=== PATIENT | male | born 1955 | race Caucasian/White ===

== ENCOUNTER 2018-10-27 15:00 | Emergency (ER) | payer OTHER ==
[2018-10-27 15:59] LABS: Absolute Lymphocytes (CBC) 2.2 K/uL (0.7-4.9); Basophils % 0.1 % (0-1.3); Eosinophils % 1.5 % (0-4.4); Hematocrit 45.7 % (39.6-49.0); Lymphocytes % 19.6 % (15.3-44.8); MPV 10.3 fL (7.6-11.3); Monocytes % 6.2 % (3.3-12.3)
--- NOTE | 2018-10-27 16:29 | RAD REPORT ---
EXAM DESCRIPTION: RAD - Pelvis - 10/27/2018 3:37 pm CLINICAL HISTORY: Pelvic pain status post injury FINDINGS: No fracture or dislocation is seen. A left hip arthroplasty has been performed. Osteoporosis
[2018-10-27 16:37] LABS: Potassium 3.9 mmol/L (3.5-5.1)
--- NOTE | 2018-10-27 17:33 | RAD REPORT ---
EXAM DESCRIPTION: CT - Head C Spine Aristides Rodriguez - 10/27/2018 5:04 pm CLINICAL HISTORY: Head and neck injury with chest and abdominal pain status post fall. Head and neck pain . TECHNIQUE: Computed axial tomography of the head and cervical spine was obtained Computed axial tomography of the chest, abdomen and pelvis was obtained. 100 cc Isovue-300 was given intravenously coronal and sagittal reconstruction was performed. All CT scans are performed using dose optimization technique as appropriate and may include automated exposure control or mA/KV adjustment according to patient size. COMPARISON: CT abdomen 2015. FINDINGS: An intracranial bleed is not seen. The ventricles are normal in caliber. An extra-axial fl uid collection is not noted. Anterior fusion involves C3 through C5. Mild anterior subluxation of C5 on C6. A cervical fracture is not seen. No dislocation is seen. A mediastinal hematoma is not noted. A pleural effusion is not present. A lung contusion is not seen. The liver, spleen, pancreas, adrenals, kidneys and bladder appear unremarkable. Postsurgical changes involve the lumbar spine IMPRESSION: 1. No acute intracranial abnormality is seen 2. A cervical fracture is not visualized. If the patient continues have symptoms to suggest intracran ial/spinal cord pathology then MRI would be recommended. 3. No traumatic injury involving the chest, abdomen or pelvis is seen.
--- NOTE | 2018-10-27 17:36 | RAD REPORT ---
EXAM DESCRIPTION: Collin Single View10/27/2018 3:37 pm CLINICAL HISTORY: Chest pain COMPARISON: 2007 FINDINGS: The lungs appear clear of acute infiltrate. The heart is normal size IMPRESSION: No acute abnormalities displayed
--- NOTE | 2018-10-27 17:45 | ER ---
Nurse's Notes [facility] Name: Live Childs Age: 63 yrs Sex: Male : 1955 Arrival Date: 10/27/2018 Time: 15:05 Bed 15 Private MD: Unknown, Unknown Diagnosis: Contusion of back wall of thorax;Contusion of front wall of thorax;Contusion of abdominal wall;Contusion of lower back and pelvis Presentation: 10/27 15:08 Presenting complaint: Patient states: Was in a tree approximately 50 feet high, when ss patient fell, but caught himself on a few limbs, ultimately falling 25 feet to the ground onto his back. Pt c/o back pain, LUQ pain and mild nausea. Denies LOC. Care prior to arrival: None. Mechanism of Injury: Fall tree, approximately 25-50 feet. Trauma event details: Injury occurred in the [facility], Injury occurred: at a residence Injury occurred: October 27, 2018 Injury occurred at: 14:30. 15:08 Acuity: ALFA 1 ss 15:08 Method Of Arrival: Ambulatory ss 15:08 Transition of care: patient was not received from another setting of care. Onset of ss symptoms was October 27, 2018. Risk Assessment: Do you want to hurt yourself or someone else? Patient reports no desire to harm self or others. Initial Sepsis Screen: Does the patient meet any 2 criteria? No. Patient's initial sepsis screen is negative. Does the patient have a suspected source of infection? No. Patient's initial sepsis screen is negative. Trauma Activation: Alert Physician: ED Physician; Name: ; Notified At: 15:11; Arrived At: 15:11 Physician: General Surgeon; Name: ; Notified At: 15:11; Arrived At: Physician: Radiology; Name: ; Notified At: 15:11; Arrived At: 15:11 Physician: Respiratory; Name: ; Notified At: 15:11; Arrived At: Physician: Lab; Name: ; Notified At: 15:11; Arrived At: Historical: - Allergies: 15:39 No Known Allergies; ss - Home Meds: 15:39 "anti inflammatory" [Active]; ss - PMHx: 15:39 sciatica; ss - PSHx: 15:39 hip replacement; back surgery; ss - Immunization history: Last tetanus immunization: unknown. - Social history:: Smoking status: Patient/guardian denies using tobacco. - Ebola Screening: : Patient denies exposure to infectious person Patient denies travel to an Ebola-affected area in the 21 days before illness onset. - Family history:: not pertinent. - Hospitalizations: : No recent hospitalization is reported. Screenin:08 Abuse screen: Denies threats or abuse. Denies injuries from another. Tuberculosis ss screening: Never had TB. 15:35 Fall Risk Fall in past 12 months (25 points). No secondary diagnosis (0 pts). IV access rb1 (20 points). Ambulatory Aid- None/Bed Rest/Nurse Assist (0 pts). Gait- Normal/Bed Rest/Wheelchair (0 pts) Mental Status- Oriented to own ability (0 pts). Total Cagle Fall Scale indicates High Risk Score (45 or more points). Fall prevention measures have been instituted. Side Rails Up X 2 Placed Close to Nursing Station 1:1 Attendant Assigned Frequent Obs/Assessments Occuring As available patient and family educated on Fall Prevention Program and Strategies. 15:35 Nutritional screening: No deficits noted. rb1 Primary Survey: 15:08 NO uncontrolled hemorrhage observed. A: The patient is alert. Airway: patent, No ss supplemental oxygen in use on arrival. Oral cavity: clear, Trachea midline. Breathing/Chest: Respiratory pattern: regular, Respiratory effort: spontaneous, unlabored, Breath sounds: clear, bilaterally. Chest inspection: symmetrical rise and fall of the chest. Circulation: Pulses: palpable right radial artery, right posterior tibial artery, left radial artery and left posterior tibial artery. Skin color: pink, Skin temperature: warm. Disability Alert. Exposure/Environment: There is no evidence of uncontrolled external bleeding. Obvious injury(ies) are noted at this time: No obvious injury noted. Pt c/o pain to back and LUQ. 15:30 Reassessment Airway Airway Patent Breathing/Chest Respiratory pattern Regular rb1 Respiratory effort Spontaneous Unlabored Breath sounds Clear Chest inspection Symmetrical Circulation Pulses Palpable Disability Alert. Secondary Survey: 15:08 HEENT: No deficits noted. Head No injury/deformity Face No injury/deformity Eyes: No ss injury or deformity noted. Ears: clear Nose: clear Throat: No injury or deformity noted. is clear. Musculoskeletal: Circulation, motion, and sensation intact. Range of motion: intact in all extremities, Swelling absent. 15:08 Gastrointestinal: Patient reports Nausea. : No signs and/or symptoms were reported rb1 regarding the genitourinary system. Assessment: 15:09 General: Appears uncomfortable, Behavior is calm, cooperative. Pain: Complains of pain rb1 in back and Left upper Quadrant Pain currently is 8 out of 10 on a pain scale. Pain began 1430. Neuro: Level of Consciousness is awake, alert, obeys commands, Oriented to person, place, time, situation. Cardiovascular: Capillary refill < 3 seconds is brisk in bilateral fingers. Respiratory: Airway is patent Respiratory effort is even, unlabored, Respiratory pattern is regular, symmetrical. GI: No signs and/or symptoms were reported involving the gastrointestinal system. : No signs and/or symptoms were reported regarding the genitourinary system. Derm: Skin is pink, warm \\T\\ dry. 15:09 Musculoskeletal: Range of motion: intact in all extremities. rb1 16:00 Reassessment: Patient appears in no apparent distress at this time. No changes from rb1 previously documented assessment. Family at bedside. 16:54 Reassessment: Patient appears in no apparent distress at this time. Patient and/or rb1 family updated on plan of care and expected duration. Pain level reassessed. Patient is alert, oriented x 3, equal unlabored respirations, skin warm/dry/pink. Pt. went to CT. 17:30 Reassessment: Patient appears in no apparent distress at this time. Patient and/or rb1 family updated on plan of care and expected duration. Pain level reassessed. Patient is alert, oriented x 3, equal unlabored respirations, skin warm/dry/pink. Pt. is talking on his telephone. 17:40 Reassessment: Dr. Crowe is at the bedside. rb1 Vital Signs: 15:08 BP 129 / 92; Pulse 88; Resp 18; Temp 98.0(O); Pulse Ox 99% on R/A; Weight 81.65 kg; ss Height 6 ft. 0 in. (182.88 cm); Pain 6/10; 16:00 BP 110 / 68; Pulse 75; Resp 17; Temp 98.0(O); Pulse Ox 97% ; Pain 6/10; rb1 16:45 BP 110 / 69; Pulse 81; Resp 18; Temp 98.3(O); Pulse Ox 99% on R/A; Pain 6/10; rb1 17:30 BP 124 / 75; Pulse 77; Resp 19; Temp 98.1(O); Pulse Ox 100% on R/A; Pain 5/10; rb1 18:18 BP 118 / 73; Pulse 71; Resp 18; Temp 98.2(O); Pulse Ox 98% on R/A; Pain 5/10; rb1 15:08 Body Mass Index 24.41 (81.65 kg, 182.88 cm) ss Adrian Coma Score: 15:08 Eye Response: spontaneous(4). Verbal Response: oriented(5). Motor Response: obeys ss commands(6). Total: 15. Trauma Score (Adult): 15:08 Eye Response: spontaneous(1); Verbal Response: oriented(1); Motor Response: obeys ss commands(2); Systolic BP: > 89 mm Hg(4); Respiratory Rate: 10 to 29 per min(4); Putnam Score: 15; Trauma Score: 12 ED Course: 15:05 Patient arrived in ED. ag5 15:05 Unknown, Unknown is Private Physician. ag5 15:08 Patient has correct armband on for positive identification. Placed in gown. Bed in low ss position. Call light in reach. Side rails up X 1. satellite project site monitor on. Pulse ox on. NIBP on. 15:08 Warm blanket given. rb1 15:08 Rigid cervical collar applied and checked by physician. Patient maintains SpO2 ss saturation greater than 95% on room air. 15:08 Thermoregulation: warm blanket given to patient. rb1 15:10 Inserted saline lock: 20 gauge in right antecubital area, using aseptic technique. ss ,using aseptic technique. insertion by Marilin Barrera RN Blood collected. 15:14 Michoacano Crowe MD is Attending Physician. rn 15:32 Triage completed. ss 15:38 XRAY Chest (1 view) In Process Unspecified. EDMS 15:38 XRAY Pelvis In Process Unspecified. EDMS 15:39 Arm band placed on right wrist. ss 15:43 Marilin Barrera, RN is Primary Nurse. rb1 17:04 CT completed. Patient tolerated procedure well. Patient moved back from CT. mw3 17:05 CT Traumagram (Head C Spine CAP W Con) In Process Unspecified. EDMS 18:18 No provider procedures requiring assistance completed. IV discontinued, intact, rb1 bleeding controlled, No redness/swelling at site. Pressure dressing applied. Administered Medications: No medications were administered Point of Care Testing: Blood Glucose: 15:39 Blood Glucose: 114 mg/dL; rb1 Ranges: Intake: 18:18 IV: 30ml; Total: 30ml. rb1 18:18 NS flush x 3 rb1 Outcome: 17:44 Discharge ordered by . rn 18:18 Discharged to home via wheelchair, with family. rb1 18:18 Condition: stable 18:18 Patient's length of stay in the Emergency Department was greater than 2 hours. waiting for test results.Patient's length of stay extended due to 18:18 Instructed on discharge instructions, follow up and referral plans. Demonstrated rb1 understanding of instructions, follow-up care, Prescriptions given X none 18:23 Patient left the ED. ss Signatures: Dispatcher [employer] EDMS Michoacano Crowe MD MD rn Smirch, Shelby, RN RN Marilin Barrera RN RN Aracely Drake mw3 Kasasndra Gonzalez ag5 Corrections: (The following items were deleted from the chart) 15:42 15:08 Presenting complaint: Patient states: Was in a tree approximately 50 feet high, ss when patient fell, but caught himself on a few limbs, ultimately falling 25 feet to the ground onto his back. Pt c/o back pain, LUQ pain and mild nausea. Denies LOC. ss
--- NOTE | 2018-10-27 17:45 | EDPHYS ---
Physician Documentation [facility] Name: Live Childs Age: 63 yrs Sex: Male : 1955 Arrival Date: 10/27/2018 Time: 15:05 Bed 15 Private MD: Unknown, Unknown ED Physician Michoacano Crowe HPI: 10/27 15:44 This 63 yrs old Male presents to ER via Ambulatory with complaints of Fall rn Injury, Back Injury, Abdominal Injury. 15:44 Details of fall: The patient fell from a height, out of a tree. Associated injuries: rn The patient sustained neck injury, upper back injury, injury to the low back, injury to the chest, injury to the abdomen. Severity of symptoms: At their worst the symptoms were mild, in the emergency department the symptoms are unchanged. The patient has not experienced similar symptoms in the past. Reports fall from tree, was somewhere from 25-50 ft high, lost his balance, caught himself on some limbs and didn't fall full height, but thinks fell maybe maximum 25 ft. Reports pain to neck/back/chest/abdomen. no extremity injuries. Drove himself here. No LOC. NOt on blood thinners. . Historical: - Allergies: 15:39 No Known Allergies; ss - Home Meds: 15:39 "anti inflammatory" [Active]; ss - PMHx: 15:39 sciatica; ss - PSHx: 15:39 hip replacement; back surgery; ss - Immunization history: Last tetanus immunization: unknown. - Social history:: Smoking status: Patient/guardian denies using tobacco. - Ebola Screening: : Patient denies exposure to infectious person Patient denies travel to an Ebola-affected area in the 21 days before illness onset. - Family history:: not pertinent. - Hospitalizations: : No recent hospitalization is reported. ROS: 15:44 Constitutional: Negative for fever, chills, and weight loss, Eyes: Negative for injury, rn pain, redness, and discharge, Neck: + neck pain and injury Cardiovascular: + rib pain left > right Respiratory: Negative for shortness of breath, cough, wheezing Abdomen/GI: + abd pain and injury Back: + left flank and back pain MS/Extremity: Negative for injury and deformity, Skin: + abrasions and contusions. Neuro: Negative for headache, weakness, numbness, tingling, and seizure. Exam: 15:44 Constitutional: This is a well developed, well nourished patient who is awake, alert, rn appears in pain Head/Face: Normocephalic, atraumatic. Eyes: + irregular right pupil (states old bull injury) ENT: no oral trauma Neck: + cervical perispinal tenderness Chest/axilla: + abrasions and contusions bilateral anterior/lateral ribs, no crepitus or mobile segments. Cardiovascular: Regular rate and rhythm with a normal S1 and S2. No gallops, murmurs, or rubs. Normal PMI, no JVD. No pulse deficits. Respiratory: + equal bilateral breath sounds Abdomen/GI: soft, + left sided tenderness with abrasions, no peritoneal signs Back: No spinal tenderness, left CVAT with abrasion, no crepitus. NO stepoffs MS/ Extremity: Pulses equal, no cyanosis. Neurovascular intact. Full, normal range of motion. Equal circumference. Neuro: Awake and alert, GCS 15, oriented to person, place, time, and situation. Motor strength 5/5 in all extremities. Sensory grossly intact. Vital Signs: 15:08 BP 129 / 92; Pulse 88; Resp 18; Temp 98.0(O); Pulse Ox 99% on R/A; Weight 81.65 kg; ss Height 6 ft. 0 in. (182.88 cm); Pain 6/10; 16:00 BP 110 / 68; Pulse 75; Resp 17; Temp 98.0(O); Pulse Ox 97% ; Pain 6/10; rb1 16:45 BP 110 / 69; Pulse 81; Resp 18; Temp 98.3(O); Pulse Ox 99% on R/A; Pain 6/10; rb1 17:30 BP 124 / 75; Pulse 77; Resp 19; Temp 98.1(O); Pulse Ox 100% on R/A; Pain 5/10; rb1 18:18 BP 118 / 73; Pulse 71; Resp 18; Temp 98.2(O); Pulse Ox 98% on R/A; Pain 5/10; rb1 15:08 Body Mass Index 24.41 (81.65 kg, 182.88 cm) Marion Coma Score: 15:08 Eye Response: spontaneous(4). Verbal Response: oriented(5). Motor Response: obeys ss commands(6). Total: 15. Trauma Score (Adult): 15:08 Eye Response: spontaneous(1); Verbal Response: oriented(1); Motor Response: obeys ss commands(2); Systolic BP: > 89 mm Hg(4); Respiratory Rate: 10 to 29 per min(4); Adrian Score: 15; Trauma Score: 12 Procedures: 15:35 Ultrasound: Type: Fast exam, performed by the emergency department physician, FAST rn negative in all windows.. MDM: 15:14 Patient medically screened. rn 15:36 ED course: Pt declines pain medication.. rn 17:41 Differential diagnosis: abrasion, closed head injury, contusion, fracture, multiple electrical intern, sprain, strain. Data reviewed: vital signs, nurses notes, lab test result(s), radiologic studies, CT scan, plain films, and as a result, I will discharge patient. Counseling: I had a detailed discussion with the patient and/or guardian regarding: the historical points, exam findings, and any diagnostic results supporting the discharge/admit diagnosis, lab results, radiology results, the need for outpatient follow up, to return to the emergency department if symptoms worsen or persist or if there are any questions or concerns that arise at home. Response to treatment: the patient's symptoms have mildly improved after treatment, and as a result, I will discharge patient. Special discussion: I discussed with the patient/guardian in detail that at this point there is no indication for admission to the hospital. It is understood, however, that if the symptoms persist or worsen the patient needs to return immediately for re-evaluation. ED course: CT shows no acute finding, FAST negative, normal vitals, xrays negative. Ccollar removed and able to range neck without neurological symptoms. Patient declines pain medication prescription.. 10/27 15:22 Order name: Basic Metabolic Panel; Complete Time: 16:38 rn 10/27 15:22 Order name: CBC with Diff; Complete Time: 16:38 rn 10/27 15:22 Order name: XRAY Chest (1 view); Complete Time: 17:36 rn 10/27 15:22 Order name: Creatinine for Radiology; Complete Time: 16:47 rn 10/27 15:22 Order name: Type And Screen; Complete Time: 16:47 rn 10/27 17:06 Order name: ABO/RH no charge; Complete Time: 17:17 EDMS 10/27 15:22 Order name: CT Traumagram (Head C Spine CAP W Con); Complete Time: 17:36 rn 10/27 15:22 Order name: Labs collected and sent; Complete Time: 15:59 rn 10/27 15:22 Order name: XRAY Pelvis; Complete Time: 16:38 rn 10/27 16:01 Order name: Misc. Order: recollect BMP please; Complete Time: 16:13 ss Administered Medications: No medications were administered Point of Care Testing: Blood Glucose: 15:39 Blood Glucose: 114 mg/dL; rb1 Ranges: Critical Glucose Levels:Adult <50 mg/dl or >400 mg/dl <40 mg/dl or >180 mg/dl Disposition: 10/27/18 17:44 Discharged to Home. Impression: Contusion of back wall of thorax, Contusion of front wall of thorax, Contusion of abdominal wall, Contusion of lower back and pelvis. - Condition is Stable. - Discharge Instructions: Contusion. - Medication Reconciliation Form, Thank You Letter, Antibiotic Education, Prescription Opioid Use form. - Follow up: Private Physician; When: As needed; Reason: Recheck today's complaints, Re-evaluation by your physician. - Problem is new. - Symptoms have improved. Signatures: Dispatcher [employer] EDMichoacano Vyas MD MD rn Smirch, Shelby, RN RN ss Corrections: (The following items were deleted from the chart) 18:23 17:44 10/27/2018 17:44 Discharged to Home. Impression: Contusion of back wall of ss thorax; Contusion of front wall of thorax; Contusion of abdominal wall; Contusion of lower back and pelvis. Condition is Stable. Forms are Medication Reconciliation Form, Thank You Letter, Antibiotic Education, Prescription Opioid Use. Follow up: Private Physician; When: As needed; Reason: Recheck today's complaints, Re-evaluation by your physician. Problem is new. Symptoms have improved. rn
== END 2018-10-27 18:23 | disposition home or self-care (01) ==
LOC: ER 15:00
DX: S30.0XXA Contusion of lower back and pelvis, initial encounter (principal); S20.229A Contusion of unspecified back wall of thorax, initial encounter; S20.219A Contusion of unspecified front wall of thorax, initial encounter; S30.1XXA Contusion of abdominal wall, initial encounter; W14.XXXA Fall from tree, initial encounter; Y93.9 Activity, unspecified; Y92.9 Unspecified place or not applicable
CPT/HCPCS: 85025; 80048; 36415; 86900; 86850; 86901; 82962; 70450; 72125; 71260; 74177; 71045; 72170; 99291; 99292; Q9967

== ENCOUNTER 2019-03-11 11:03 | Emergency (ER) | payer OTHER ==
--- OUTSIDE RECORDS SUMMARY | 2019-03-11 11:14 | XMS REPORT ---
:1955 [facility] Address [address] [place] [address] [address] [place] [address] Care Team Providers Name Role Phone Unavailable Unavailable Unavailable Problems This patient has no known problems. Allergies, Adverse Reactions, Alerts This patient has no known allergies or adverse reactions. Medications This patient has no known medications.
[2019-03-11] MEDS ORDERED: METOCLOPRAMIDE 10 MG/2mL INJ ONE (11:45)
[2019-03-11] MEDS ORDERED: KETOROLAC 30 MG/ML INJ ONE (11:45)
[2019-03-11] MEDS ORDERED: DIPHENHYDRAMINE 50 MG/ML VIAL ONE (11:45)
[2019-03-11] MEDS ORDERED: NA CHLORIDE 0.9% 2,000 ML ONE (11:46)
[2019-03-11] MEDS ORDERED: NA CHLORIDE 0.9% 1,000 ML ONE (11:47)
[2019-03-11 11:56] LABS: Absolute Lymphocytes (CBC) 1.5 K/uL (0.7-4.9); Basophils % 0.4 % (0-1.3); Hematocrit 42.8 % (39.6-49.0); Lymphocytes % 28.7 % (15.3-44.8); MPV 9.4 fL (7.6-11.3); RBC Red Blood Cell Count 4.61 M/uL (4.33-5.43)
--- NOTE | 2019-03-11 12:07 | RAD REPORT ---
EXAM DESCRIPTION: CT - Head Brain Wo Cont - 03/11/2019 11:57 am CLINICAL HISTORY: Trouble talking, multiple falls, headache, dizziness COMPARISON: CT study October 2007 TECHNIQUE: Axial 5 mm thick images of the head were obtained without IV contrast. All CT scans are performed using dose optimization technique as appropriate and may include automated exposure control or mA/KV adjustment according to patient size. FINDINGS: No intracranial hemorrhage, mass, edema or shift of mid-line structures. No acute infarcti on changes seen. No abnormal extra-axial fluid collections. Ventricles are normal. No significant at rophy or chronic ischemic change. Physiologic calcifications are present. Mastoid air cells and visualized portions of the paranasal sinuses are clear. No acute bony findings. No significant change from prior study. IMPRESSION: Negative non-contrast CT head examination.
[2019-03-11 12:15] LABS: ALT/SGPT 25 U/L (12-78); AST/SGOT 20 U/L (15-37); Albumin 3.5 g/dL (3.4-5.0); Alkaline Phosphatase 95 U/L (45-117); BUN Blood Urea Nitrogen 16 mg/dL (7-18); Bicarbonate 30 mmol/L (21-32); Bilirubin Direct < 0.1 mg/dL (0-0.2); Bilirubin Total 0.3 mg/dL (0.2-1.0); Glucose Level 112 mg/dL (74-106); Lipase 74 U/L (73-393); Potassium 4.2 mmol/L (3.5-5.1); Protein, Total 6.9 g/dL (6.4-8.2); Sodium Level 141 mmol/L (136-145)
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
--- NOTE | 2019-03-11 13:48 | EDPHYS ---
Physician Documentation [facility] Name: Live Childs Age: 63 yrs Sex: Male : 1955 Arrival Date: 03/11/2019 Time: 11:07 Bed 4 Private MD: Unknown, Unknown ED Physician Isaac Mena HPI: 03/11 13:45 This 63 yrs old Male presents to ER via Ambulatory with complaints of Doesn't ma2 Feel Right, Trouble Walking. 13:45 The patient presents to the emergency department with no dificit, only lightheadedness ma2 . Onset: The symptoms/episode began/occurred gradually, 2 hour(s) ago. Associated signs and symptoms: Pertinent positives: Pertinent negatives: chills, headache, nausea, paresthesias, syncope, near-syncope, loss of vision, weakness. Severity of symptoms: At their worst the symptoms were very mild in the emergency department the symptoms have resolved. Current symptoms: Currently, the patient is not experiencing any symptoms. The patient has not experienced similar symptoms in the past. has diarrhea. Historical: - Allergies: 11:12 No Known Allergies; aa5 - Home Meds: 12:57 "anti inflammatory" [Active]; tw2 - PMHx: 11:12 sciatica; aa5 - PSHx: 11:12 hip replacement; back surgery; aa5 - Immunization history:: Adult Immunizations unknown. - Social history:: Smoking status: Patient/guardian denies using tobacco, Patient/guardian denies using alcohol, street drugs, The patient lives with family. - Ebola Screening: : No symptoms or risks identified at this time. - Family history:: not pertinent. ROS: 13:45 Constitutional: Negative for fever, chills, and weight loss, Cardiovascular: Negative ma2 for chest pain, palpitations, and edema, Respiratory: Negative for shortness of breath, cough, wheezing, and pleuritic chest pain, Back: Negative for injury and pain. 13:45 All other systems are negative. Exam: 13:45 Constitutional: This is a well developed, well nourished patient who is awake, alert, ma2 and in no acute distress. Chest/axilla: Normal chest wall appearance and motion. Nontender with no deformity. No lesions are appreciated. Cardiovascular: Regular rate and rhythm with a normal S1 and S2. No gallops, murmurs, or rubs. Normal PMI, no JVD. No pulse deficits. Respiratory: Lungs have equal breath sounds bilaterally, clear to auscultation and percussion. No rales, rhonchi or wheezes noted. No increased work of breathing, no retractions or nasal flaring. Abdomen/GI: Soft, non-tender, with normal bowel sounds. No distension or tympany. No guarding or rebound. No evidence of tenderness throughout. Back: No spinal tenderness. No costovertebral tenderness. Full range of motion. Skin: Warm, dry with normal turgor. Normal color with no rashes, no lesions, and no evidence of cellulitis. MS/ Extremity: Pulses equal, no cyanosis. Neurovascular intact. Full, normal range of motion. Neuro: Awake and alert, GCS 15, oriented to person, place, time, and situation. Cranial nerves II-XII grossly intact. Motor strength 5/5 in all extremities. Sensory grossly intact. Cerebellar exam normal. Normal gait. Vital Signs: 11:12 BP 115 / 80; Pulse 78; Resp 16 S; Temp 98.2(TE); Pulse Ox 98% on R/A; Weight 81.65 kg aa5 (R); Height 6 ft. 0 in. (182.88 cm) (R); Pain 4/10; 12:11 BP 122 / 87; Pulse 72; Resp 17 S; Pulse Ox 97% on R/A; ca1 12:57 BP 118 / 76; Pulse 64; Resp 14; Pulse Ox 97% on R/A; tw2 11:12 Body Mass Index 24.41 (81.65 kg, 182.88 cm) aa5 NIH Stroke Scale Scores: 11:27 NIHSS Score: 0 ca1 MDM: 11:16 Patient medically screened. [facility] 13:45 Data reviewed: vital signs, nurses notes. Counseling: I had a detailed discussion with ma2 the patient and/or guardian regarding: the historical points, exam findings, and any diagnostic results supporting the discharge/admit diagnosis, the presence of at least one elevated blood pressure reading (>120/80) during this emergency department visit, the need for outpatient follow up. Response to treatment: the patient's symptoms have resolved after treatment. 03/11 11:40 Order name: Basic Metabolic Panel; Complete Time: 12:21 ma2 03/11 11:40 Order name: CBC with Diff; Complete Time: 12:21 [facility] 03/11 11:40 Order name: Creatinine for Radiology; Complete Time: 13:13 [facility] 03/11 11:40 Order name: Hepatic Function; Complete Time: 12:21 [facility] 03/11 11:40 Order name: Lipase; Complete Time: 12:21 [facility] 03/11 11:40 Order name: CT Head Brain wo Cont; Complete Time: 12:21 [facility] 03/11 11:40 Order name: IV Saline Lock; Complete Time: 11:42 ri2 03/11 11:40 Order name: Labs collected and sent; Complete Time: 11:42 ma2 Administered Medications: 11:45 Drug: Reglan 10 mg Route: IVP; Site: right antecubital; tw2 12:32 Follow up: Response: No adverse reaction; Pain is decreased ca1 11:48 Drug: TORadol 30 mg Route: IVP; Site: right antecubital; tw2 12:33 Follow up: Response: No adverse reaction; Pain is decreased ca1 11:50 Drug: Benadryl 50 mg Route: IVP; Site: right antecubital; tw2 12:33 Follow up: Response: No adverse reaction; Pain is decreased ca1 11:52 Drug: NS 0.9% 2000 ml Route: IV; Rate: 1 bolus; Site: right antecubital; tw2 13:00 Follow up: Response: No adverse reaction; IV Status: Completed infusion; IV Intake: ca1 2000ml Disposition: 03/11/19 13:47 Discharged to Home. Impression: Dehydration. - Condition is Stable. - Discharge Instructions: Dehydration, Adult. - Medication Reconciliation Form, Thank You Letter, Antibiotic Education, Prescription Opioid Use form. - Follow up: Private Physician; When: Tomorrow; Reason: Continuance of care. NIH Stroke Scale - NIH Stroke Score Date: 03/11/2019 Time: 11:27 Total Score = 0 1a. Level of Consciousness (LOC) - 0(Alert) 1b. Level of Consciousness (LOC) (Year \\T\\ Age) - 0(Both) 1c. LOC Commands (Open \\T\\ Closes Eyes/Night Assistant) - 0(Both) 2. Best Gaze (Lateral Gaze Paresis) - 0(Normal) 3. Visual Field Loss - 0(No visual loss) 4. Facial Palsy - 0(Normal) 5a. Left Arm: Motor (10-second hold) - 0(No drift) 5b. Right Arm: Motor (10-second hold) - 0(No drift) 6a. Left Leg: Motor (5-second hold - always test supine) - 0(No drift) 6b. Right Leg: Motor (5-second hold - always test supine) - 0(No drift) 7. Limb Ataxia (finger/nose \\T\\ heel/frye - test with eyes open) - 0(Absent) 8. Sensory Loss (pinprick arms/legs/face) - 0(Normal) 9. Best Language: Aphasia (description/naming/reading) - 0(No aphasia) 10. Dysarthria (speech clarity - read or repeat words) - 0(Normal) 11. Extinction and Inattention (visual/tactile/auditory/spatial/personal) - 0(No abnormality) Initials: ca1 Signatures: Dispatcher [employer] EDMS Naomi Smith RN RN aa5 Candy Ryan RN RN tw2 Isaac Mena MD MD ma2 Chanelle Caro RN RN ca1 Corrections: (The following items were deleted from the chart) 14:01 13:47 03/11/2019 13:47 Discharged to Home. Impression: Dehydration. Condition ca1 is Stable. Forms are Medication Reconciliation Form, Thank You Letter, Antibiotic Education, Prescription Opioid Use. Follow up: Private Physician; When: Tomorrow; Reason: Continuance of care. ma2
[2019-03-11 14:33] VITALS: TEMP 98.2
[2019-03-11 14:34] VITALS: O2SAT 97
[2019-03-11 14:36] VITALS: BP 118/76
== END 2019-03-11 14:01 | disposition home or self-care (01) ==
LOC: ER 11:03
DX: E86.0 Dehydration (principal)
CPT/HCPCS: 96361; 85025; 80048; 36415; 80076; 83690; 70450; 96375; 96374; 99285; J2765; J1200; J7030 ×2

== ENCOUNTER 2020-07-26 00:29 | Emergency (ER) | payer OTHER ==
--- OUTSIDE RECORDS SUMMARY | 2020-07-26 00:32 | XMS REPORT | Continuity of Care Document ---
:1955 Author Organization [facility] t Address [facility] [place] [address] Care Team Providers Name Role Phone Unavailable Unavailable Unavailable Problems This patient has no known problems. Allergies, Adverse Reactions, Alerts This patient has no known allergies or adverse reactions. Medications This patient has no known medications. Procedures This patient has no known procedures. Results This patient has no known results.
[2020-07-26] MEDS ORDERED: NA CHLORIDE 0.9% 1,000 ML ONE (01:31)
[2020-07-26 01:37] LABS: Absolute Lymphocytes (CBC) 1.4 K/uL (0.7-4.9); Basophils % 0.3 % (0-1.3); Hematocrit 43.7 % (39.6-49.0); Lymphocytes % 10.7 % (15.3-44.8); RBC Red Blood Cell Count 4.66 M/uL (4.33-5.43)
[2020-07-26 01:38] LABS: Protime INR 1.07
[2020-07-26 01:56] LABS: ALT/SGPT 23 U/L (12-78); AST/SGOT 19 U/L (15-37); Albumin 3.9 g/dL (3.4-5.0); Alkaline Phosphatase 90 U/L (45-117); BUN Blood Urea Nitrogen 15 mg/dL (7-18); Bicarbonate 27 mmol/L (21-32); Bilirubin Direct 0.2 mg/dL (0-0.2); Bilirubin Total 0.7 mg/dL (0.2-1.0); Glucose Level 105 mg/dL (74-106); Magnesium 2.1 mg/dL (1.8-2.4); NT PRO-BNP 122 pg/mL (<125); Potassium 3.9 mmol/L (3.5-5.1); Protein, Total 7.7 g/dL (6.4-8.2); Sodium Level 139 mmol/L (136-145); Troponin (Emerg Dept Use Only) < 0.02 ng/mL (0.0-0.045)
[2020-07-26] MEDS ORDERED: ALBUTEROL 2.5 MG/3 ML NEB SOL ONE (02:42)
--- NOTE | 2020-07-26 04:34 | EDPHYS ---
Physician Documentation [facility] Name: Live Childs Age: 65 yrs Sex: Male : 1955 Arrival Date: 07/26/2020 Time: 00:31 Bed 2 Private MD: ED Physician Drew Easley HPI: 07/26 01:12 This 65 yrs old Male presents to ER via Wheelchair with complaints of mh7 Breathing Difficulty. 01:12 The patient has shortness of breath at rest, that occurred at home. Onset: The mh7 symptoms/episode began/occurred yesterday. Duration: The symptoms are intermittent, with no pattern. The patient's shortness of breath is aggravated by coughing, is alleviated by nothing. 01:14 Associated signs and symptoms: Pertinent positives: productive cough, Pertinent mh7 negatives: chest pain, diaphoresis, fever, hemoptysis, loss of consciousness, nausea, numbness in extremities, visual changes, vomiting. Severity of symptoms: At their worst the symptoms were moderate last night, in the emergency department the symptoms are unchanged. States that he choked of small piece of hamburger \T\ noon and has been coughing up small pieces of meat since then which has caused some difficulty with breathing.. Historical: - Allergies: 00:55 No Known Allergies; bb - Home Meds: 00:55 None [Active]; bb - PSHx: 00:55 hip replacement; back surgery; bb - Immunization history:: Adult Immunizations up to date. - Social history:: Smoking status: Patient denies any tobacco usage or history of. ROS: 01:14 Constitutional: Negative for fever, chills, and weight loss, Eyes: Negative for injury, mh7 pain, redness, and discharge, ENT: Negative for injury, pain, and discharge, Neck: Negative for injury, pain, and swelling, Cardiovascular: Negative for chest pain, palpitations, and edema, Abdomen/GI: Negative for abdominal pain, nausea, vomiting, diarrhea, and constipation, Back: Negative for injury and pain, : Negative for injury, bleeding, discharge, and swelling, MS/Extremity: Negative for injury and deformity, Skin: Negative for injury, rash, and discoloration, Neuro: Negative for headache, weakness, numbness, tingling, and seizure, Psych: Negative for depression, anxiety, suicide ideation, homicidal ideation, and hallucinations, Allergy/Immunology: Negative for hives, rash, and allergies, Endocrine: Negative for neck swelling, polydipsia, polyuria, polyphagia, and marked weight changes, Hematologic/Lymphatic: Negative for swollen nodes, abnormal bleeding, and unusual bruising. Exam: :14 Head/Face: Normocephalic, atraumatic. Eyes: Pupils equal round and reactive to light, mh7 extra-ocular motions intact. Lids and lashes normal. Conjunctiva and sclera are non-icteric and not injected. Cornea within normal limits. Periorbital areas with no swelling, redness, or edema. ENT: Nares patent. No nasal discharge, no septal abnormalities noted. Tympanic membranes are normal and external auditory canals are clear. Oropharynx with no redness, swelling, or masses, exudates, or evidence of obstruction, uvula midline. Mucous membranes moist. Neck: Trachea midline, no thyromegaly or masses palpated, and no cervical lymphadenopathy. Supple, full range of motion without nuchal rigidity, or vertebral point tenderness. No Meningismus. Chest/axilla: Normal chest wall appearance and motion. Nontender with no deformity. No lesions are appreciated. Cardiovascular: Regular rate and rhythm with a normal S1 and S2. No gallops, murmurs, or rubs. Normal PMI, no JVD. No pulse deficits. Respiratory: Lungs have equal breath sounds bilaterally, clear to auscultation and percussion. No rales, rhonchi or wheezes noted. No increased work of breathing, no retractions or nasal flaring. Abdomen/GI: Soft, non-tender, with normal bowel sounds. No distension or tympany. No guarding or rebound. No evidence of tenderness throughout. Back: No spinal tenderness. No costovertebral tenderness. Full range of motion. Skin: Warm, dry with normal turgor. Normal color with no rashes, no lesions, and no evidence of cellulitis. MS/ Extremity: Pulses equal, no cyanosis. Neurovascular intact. Full, normal range of motion. Neuro: Awake and alert, GCS 15, oriented to person, place, time, and situation. Cranial nerves II-XII grossly intact. Motor strength 5/5 in all extremities. Sensory grossly intact. Cerebellar exam normal. Normal gait. Psych: Awake, alert, with orientation to person, place and time. Behavior, mood, and affect are within normal limits. 01:14 Constitutional: The patient appears in no acute distress, alert, awake, uncomfortable. Vital Signs: 00:53 BP 131 / 77; Pulse 96; Resp 20 S; Temp 99.2(O); Pulse Ox 98% on R/A; Weight 81.65 kg bb (R); Height 6 ft. 0 in. (182.88 cm) (R); Pain 9/10; 02:28 BP 140 / 79; Pulse 85; Resp 16; Pulse Ox 96% on R/A; rv 03:00 BP 136 / 68; Pulse 97; Resp 17; Pulse Ox 97% on R/A; rv 04:00 BP 141 / 87; Pulse 86; Resp 16; Pulse Ox 96% on R/A; rv 04:41 BP 138 / 83; Pulse 81; Resp 16; Pulse Ox 98% on R/A; rv 00:53 Body Mass Index 24.41 (81.65 kg, 182.88 cm) MDM: 04:31 Differential diagnosis: Anemia Anxiety Reaction asthma, Bronchitis CHF exacerbation, mh7 Chronic Obstructive Pulmonary Disease Myocardial Infarction pneumonia, Pneumothorax Psychogenic pulmonary edema, Pulmonary Embolism reactive airway disease. Data reviewed: vital signs, nurses notes, lab test result(s), cardiac enzymes, CBC, electrolytes, EKG, radiologic studies, CT scan, plain films. Data interpreted: Pulse oximetry: on room air is 96 %. Interpretation: normal. Counseling: I had a detailed discussion with the patient and/or guardian regarding: the historical points, exam findings, and any diagnostic results supporting the discharge/admit diagnosis, the presence of at least one elevated blood pressure reading (>120/80) during this emergency department visit, lab results, radiology results, the need for outpatient follow up, to return to the emergency department if symptoms worsen or persist or if there are any questions or concerns that arise at home. Response to treatment: the patient's symptoms have resolved after treatment, the patient's blood pressure is in an acceptable range, mental status has returned to baseline, the patient no longer shows bradycardia, the patient is not short of breath, the patient is not tachycardic, the patient's pain is gone, the patient's temperature has normalized. 04:33 Patient medically screened. 7 07/26 01:08 Order name: Basic Metabolic Panel [facility] 07/26 01:08 Order name: CBC with Diff [facility] 07/26 01:08 Order name: LFT's; Complete Time: 02:05 [facility] 07/26 01:08 Order name: Magnesium; Complete Time: 02:05 [facility] 07/26 01:08 Order name: NT PRO-BNP; Complete Time: 02:05 [facility] 07/26 01:08 Order name: PT-INR; Complete Time: 02:05 [facility] 07/26 01:08 Order name: Troponin (emerg Dept Use Only); Complete Time: 02:05 [facility] 07/26 01:08 Order name: XRAY Chest (1 view) [facility] 07/26 01:09 Order name: Basic Metabolic Panel; Complete Time: 02:05 EDMS 07/26 01:09 Order name: CBC with Automated Diff; Complete Time: 02:05 EDMS 07/26 03:00 Order name: CT Chest For PE Angio [facility] 07/26 01:08 Order name: EKG; Complete Time: 01:09 [facility] 07/26 01:08 Order name: Cardiac monitoring; Complete Time: 01:24 [facility] 07/26 01:08 Order name: EKG - Nurse/Tech; Complete Time: 01:24 [facility] 07/26 01:08 Order name: IV Saline Lock; Complete Time: 01:24 [facility] 07/26 01:08 Order name: Labs collected and sent; Complete Time: 01:24 [facility] 07/26 01:08 Order name: O2 Per Protocol; Complete Time: 01:24 [facility] 07/26 01:08 Order name: O2 Sat Monitoring; Complete Time: 01:24 [facility] Administered Medications: 01:15 Drug: NS 0.9% 1000 ml Route: IV; Rate: 1000 ml; Site: right antecubital; lp1 02:28 Follow up: IV Status: Completed infusion; IV Intake: 1000ml rv 02:27 Not Given (Duplicate Order): Albuterol 1.25 mg Inhalation once rv 02:28 Drug: Albuterol 2.5 mg Route: Inhalation; rv 02:46 Follow up: Response: No adverse reaction rv Disposition: 07/26/20 04:33 Discharged to Home. Impression: Cough, Dyspnea. - Condition is Stable. - Discharge Instructions: Shortness of Breath, [id number], Cough, Adult, [id number]. - Prescriptions for Tessalon Perles 100 mg Oral Capsule - take 1 capsule by ORAL route every 8 hours As needed; 15 capsule. Albuterol Sulfate 90 mcg/actuation - inhale 1-2 puff by INHALATION route every 4-6 hours; 1 Inhaler. - Medication Reconciliation Form, Thank You Letter, Antibiotic Education, Prescription Opioid Use form. - Follow up: Private Physician; When: 1 - 2 days; Reason: Worsening of condition, Recheck today's complaints, Continuance of care, Re-evaluation by your physician. - Problem is new. - Symptoms have improved. Signatures: Dispatcher [employer] EDMS Diane Cesar RN RN bb Elaine Hernandez RN RN 1 Carlos Eduardo Chu RN RN rv Drew Easley MD MD mh7 Corrections: (The following items were deleted from the chart) 04:41 04:33 07/26/2020 04:33 Discharged to Home. Impression: Cough; Dyspnea. Condition is rv Stable. Forms are Medication Reconciliation Form, Thank You Letter, Antibiotic Education, Prescription Opioid Use. Follow up: Private Physician; When: 1 - 2 days; Reason: Worsening of condition, Recheck today's complaints, Continuance of care, Re-evaluation by your physician. Problem is new. Symptoms have improved. mh7
--- NOTE | 2020-07-26 04:34 | ER ---
Nurse's Notes [facility] Name: Live Childs Age: 65 yrs Sex: Male : 1955 Arrival Date: 07/26/2020 Time: 00:31 Bed 2 Private MD: Diagnosis: Cough;Dyspnea Presentation: 07/26 00:53 Chief complaint: Patient states: he choked on some food at lunchtime today and is bb having more and more difficulty breathing. Coronavirus screen: At this time, the client does not indicate any symptoms associated with coronavirus-19. Ebola Screen: No symptoms or risks identified at this time. Initial Sepsis Screen: Does the patient meet any 2 criteria? No. Patient's initial sepsis screen is negative. Does the patient have a suspected source of infection? No. Patient's initial sepsis screen is negative. Risk Assessment: Do you want to hurt yourself or someone else? Patient reports no desire to harm self or others. Onset of symptoms was July 25, 2020. 00:53 Method Of Arrival: Wheelchair bb 00:53 Acuity: ALFA 2 bb Triage Assessment: 01:16 General: Appears ill. Respiratory: Reports shortness of breath at rest Onset: The rv symptoms/episode began/occurred today, the patient has mild shortness of breath. Historical: - Allergies: 00:55 No Known Allergies; bb - Home Meds: 00:55 None [Active]; bb - PSHx: 00:55 hip replacement; back surgery; bb - Immunization history:: Adult Immunizations up to date. - Social history:: Smoking status: Patient denies any tobacco usage or history of. Screenin:16 Abuse screen: Denies threats or abuse. Denies injuries from another. Nutritional rv screening: No deficits noted. Tuberculosis screening: No symptoms or risk factors identified. Fall Risk None identified. Assessment: 01:15 General: Appears ill, Behavior is calm, cooperative. Pain: Denies pain. Neuro: Level of rv Consciousness is awake, alert, obeys commands, Oriented to person, place, time, situation. Cardiovascular: Patient's skin is warm and dry. Rhythm is regular. Respiratory: Airway is patent Respiratory effort is labored, Breath sounds are clear bilaterally. Derm: Skin is intact. 03:31 Reassessment: PATIENT IS BACK FROM CT SCAN. rv Vital Signs: 00:53 BP 131 / 77; Pulse 96; Resp 20 S; Temp 99.2(O); Pulse Ox 98% on R/A; Weight 81.65 kg bb (R); Height 6 ft. 0 in. (182.88 cm) (R); Pain 9/10; 02:28 BP 140 / 79; Pulse 85; Resp 16; Pulse Ox 96% on R/A; rv 03:00 BP 136 / 68; Pulse 97; Resp 17; Pulse Ox 97% on R/A; rv 04:00 BP 141 / 87; Pulse 86; Resp 16; Pulse Ox 96% on R/A; rv 04:41 BP 138 / 83; Pulse 81; Resp 16; Pulse Ox 98% on R/A; rv 00:53 Body Mass Index 24.41 (81.65 kg, 182.88 cm) bb ED Course: 00:31 Patient arrived in ED. cl3 00:54 Triage completed. bb 00:55 Arm band placed on Patient placed in an exam room, on a stretcher, on air sampling and monitoring, bb on pulse oximetry. Family accompanied patient. 01:02 Drew Easley MD is Attending Physician. mh7 01:09 Carlos Eduardo Chu RN is Primary Nurse. rv 01:15 Initial lab(s) drawn, by me, sent to lab. Inserted saline lock: 20 gauge in right rv antecubital area, using aseptic technique. Blood collected. 01:17 Patient has correct armband on for positive identification. classroom monitor on. Pulse rv ox on. NIBP on. 01:27 XRAY Chest (1 view) In Process Unspecified. EDMS 03:52 CT Chest For PE Angio In Process Unspecified. EDMS 04:41 No provider procedures requiring assistance completed. IV discontinued, intact, rv bleeding controlled, No redness/swelling at site. Pressure dressing applied. Administered Medications: 01:15 Drug: NS 0.9% 1000 ml Route: IV; Rate: 1000 ml; Site: right antecubital; lp1 02:28 Follow up: IV Status: Completed infusion; IV Intake: 1000ml rv 02:27 Not Given (Duplicate Order): Albuterol 1.25 mg Inhalation once rv 02:28 Drug: Albuterol 2.5 mg Route: Inhalation; rv 02:46 Follow up: Response: No adverse reaction rv Intake: 02:28 IV: 1000ml; Total: 1000ml. rv Outcome: 04:33 Discharge ordered by mh7 04:41 Discharged to home ambulatory. rv 04:41 Condition: improved 04:41 Discharge instructions given to patient, Instructed on discharge instructions, follow up and referral plans. medication usage, Demonstrated understanding of instructions, follow-up care, medications, Prescriptions given X 2. 04:41 Patient left the ED. rv Signatures: Dispatcher [employer] EDMS Diane Cesar RN RN bb Elaine Hernandez RN RN lp1 Carlos Eduardo Chu RN RN Chelsi Enriquez cl3 Drew Easlye MD MD 7
[2020-07-26 08:00] VITALS: TEMP 99.2
[2020-07-26 08:04] VITALS: BP 138/83; O2SAT 98
--- NOTE | 2020-07-26 09:48 | EKG ---
Test Date: 2020-07-26 Test Time: 01:16:00 Web Press Operator Assistant: MANASA MEASUREMENT RESULTS: Intervals: Rate: 94 NM: 186 QRSD: 94 QT: 360 QTc: 450 Frazee: P: 35 NM: 186 QRS: 2 T: 55 INTERPRETIVE STATEMENTS: Normal sinus rhythm Normal ECG Compared to ECG 11/08/2007 17:02:12 First degree AV block no longer present Electronically Signed On 07-26-20 09:47:32 CDT by Rigoberto Green
--- NOTE | 2020-07-27 12:01 | RAD REPORT ---
EXAM DESCRIPTION: CT - Chest For Pe Angio - 07/26/2020 7:07 am CLINICAL HISTORY: The patient is 65 years old and is Male; Cough;SOB TECHNIQUE: Axial computed tomographic angiography images of the chest with intravenous contrast. S agittal and coronal reformatted images were created and reviewed. This CT exam was performed using one or more of the following dose reduction techniques: automated exposure control, adjustment of t he mA and/or kV according to patient size, and/or use of iterative reconstruction technique. MIP re constructed images were created and reviewed. COMPARISON: No relevant prior studies available. FINDINGS: Pulmonary arteries: Unremarkable. No pulmonary embolism. Aorta: No acute findings. No thoracic aortic aneurysm. Lungs: Bibasilar atelectasis. Right hilar calcifications. No mass. Pleural space: Unremarkable. No significant effusion. No pneumothorax. Heart: Unremarkable. No cardiomegaly. No significant pericardial effusion. No evidence of RV dysfunction. Bones/joints: No acute fracture. No dislocation. Soft tissues: Unremarkable. Lymph nodes: Unremarkable. No enlarged lymph nodes. IMPRESSION: No acute findings in the visualized arteries of the chest. Electronically signed by: Kurtis Lafleur MD 07/26/2020 4:08 AM CDT Due to temporary technical issues with the PACS/Fluency reporting system, reports are being signed by the in house radiologist without review as a courtesy to ensure prompt reporting. The interpreting r adiologist is fully responsible for the content of the report.
--- NOTE | 2020-07-27 12:27 | RAD REPORT ---
EXAM DESCRIPTION: RAD - Chest Single View - 07/26/2020 1:27 am CLINICAL HISTORY: The patient is 65 years old and is Male; SOB TECHNIQUE: Frontal view of the chest. COMPARISON: No relevant prior studies available. FINDINGS: LUNGS: Unremarkable. No consolidation. PLEURAL SPACE: Unremarkable. No pneumothorax. HEART: Unremarkable. No cardiomegaly. MEDIASTINUM: Unremarkable. BONES/JOINTS: There are degenerative changes of the spine. IMPRESSION: No acute cardiopulmonary process. Electronically signed by: Michelle Brewer MD 07/26/2020 2:43 AM CDT Due to temporary technical issues with the PACS/Fluency reporting system, reports are being signed by the in house radiologist without review as a courtesy to ensure prompt reporting. The interpreting r adiologist is fully responsible for the content of the report.
== END 2020-07-26 04:41 | disposition home or self-care (01) ==
LOC: ER 00:29
DX: R05 Cough (principal)
CPT/HCPCS: 93005; 85025; 80048; 36415; 83735; 85610; 80076; 84484; 83880; 71275; 71045; 96360; 99285; Q9967; J7030

== ENCOUNTER 2020-09-15 17:12 | Emergency (ER) | payer OTHER ==
--- OUTSIDE RECORDS SUMMARY | 2020-09-15 17:16 | XMS REPORT | Continuity of Care Document ---
:1955 Author Organization [facility] Address [address] [place] [address] Dr. Shaw [address] [place] [id number] Care Team Providers Name Role Phone Unavailable Unavailable Unavailable Problems This patient has no known problems. Allergies, Adverse Reactions, Alerts This patient has no known allergies or adverse reactions. Medications This patient has no known medications. Procedures This patient has no known procedures. Results This patient has no known results.
--- NOTE | 2020-09-15 19:46 | RAD REPORT ---
EXAM DESCRIPTION: Collin Lovelace And Nedra (2 Views)09/15/2020 7:24 pm CLINICAL HISTORY: Cough COMPARISON: June 2020 FINDINGS: The lungs appear clear of acute infiltrate. The heart is normal size IMPRESSION: No acute abnormalities displayed
[2020-09-15 21:28] LABS: Absolute Lymphocytes (CBC) 1.3 K/uL (0.7-4.9); Basophils % 0.4 % (0-1.3); Hematocrit 44.4 % (39.6-49.0); Lymphocytes % 29.5 % (15.3-44.8); MPV 8.8 fL (7.6-11.3); RBC Red Blood Cell Count 4.74 M/uL (4.33-5.43)
[2020-09-15 21:36] LABS: Protime INR 1.05
[2020-09-15] MEDS ORDERED: METHYLPREDNISOLONE 125 MG INJ ONE (21:47)
[2020-09-15] MEDS ORDERED: AZITHROMYCIN 500 MG INJ IVPB ONE (21:48)
[2020-09-15] MEDS ORDERED: NA CHLORIDE 0.9% 100 ML ONE (21:48)
[2020-09-15] MEDS ORDERED: HYDROCODONE/CHLORPHEN 5 ML/OSYR ONE (21:48)
[2020-09-15] MEDS ORDERED: CEFTRIAXONE 1000 MG/VIAL ONE (21:48)
[2020-09-15] MEDS ORDERED: IPRATROPIUM BROM 0.5MG/2.5ML ONE (21:48)
[2020-09-15] MEDS ORDERED: NA CHLORIDE 0.9% 250 ML ONE (21:48)
[2020-09-15] MEDS ORDERED: NA CHLORIDE 0.9% 500 ML ONE (21:49)
[2020-09-15] MEDS ORDERED: FAMOTIDINE 20 MG/2 ML VIAL IV ONE (21:49)
[2020-09-15] MEDS ORDERED: predniSONE 20 MG TAB ONE (21:54)
[2020-09-15 22:03] LABS: ALT/SGPT 29 U/L (12-78); Albumin 3.8 g/dL (3.4-5.0); Alkaline Phosphatase 88 U/L (45-117); BUN Blood Urea Nitrogen 15 mg/dL (7-18); Bicarbonate 28 mmol/L (21-32); Bilirubin Direct < 0.1 mg/dL (0-0.2); Bilirubin Total 0.4 mg/dL (0.2-1.0); Glucose Level 96 mg/dL (74-106); NT PRO-BNP 70 pg/mL (<125); Protein, Total 7.4 g/dL (6.4-8.2); Sodium Level 135 mmol/L (136-145); Troponin (Emerg Dept Use Only) < 0.02 ng/mL (0.0-0.045)
[2020-09-15 22:04] LABS: AST/SGOT 28 U/L (15-37); Magnesium 2.3 mg/dL (1.8-2.4)
[2020-09-15 22:34] LABS: SARS-COV-2 RT PCR POSITIVE (NEGATIVE)
--- NOTE | 2020-09-15 23:15 | EDPHYS ---
Physician Documentation [facility] Name: Live Childs Age: 65 yrs Sex: Male : 1955 Arrival Date: 09/15/2020 Time: 17:16 Bed 4 Private MD: ED Physician Grge Swift HPI: 09/15 20:59 This 65 yrs old Male presents to ER via Ambulatory with complaints of quin Shortness Of Breath, Non-Productive Cough. 20:59 The patient has shortness of breath at rest, with light activity. Onset: The quin symptoms/episode began/occurred 14 day(s) ago. Duration: The symptoms are continuous, and are steadily getting worse. The patient's shortness of breath is aggravated by coughing. Associated signs and symptoms: The patient has no apparent associated signs or symptoms. The patient has not experienced similar symptoms in the past. Historical: - Allergies: 18:29 No Known Allergies; jl7 - Home Meds: 18:29 None [Active]; jl7 - PMHx: 18:29 None; jl7 - PSHx: 18:29 hip replacement; back surgery; jl7 - Immunization history:: Adult Immunizations up to date. - Social history:: Smoking status: Patient denies any tobacco usage or history of. ROS: 20:59 Constitutional: Negative for fever, chills, and weight loss, Eyes: Negative for injury, quin pain, redness, and discharge, ENT: Negative for injury, pain, and discharge, Neck: Negative for injury, pain, and swelling, Cardiovascular: Negative for chest pain, palpitations, and edema, Abdomen/GI: Negative for abdominal pain, nausea, vomiting, diarrhea, and constipation, Back: Negative for injury and pain, : Negative for injury, bleeding, discharge, and swelling, MS/Extremity: Negative for injury and deformity, Skin: Negative for injury, rash, and discoloration, Neuro: Negative for headache, weakness, numbness, tingling, and seizure, Psych: Negative for depression, anxiety, suicide ideation, homicidal ideation, and hallucinations, Allergy/Immunology: Negative for hives, rash, and allergies, Endocrine: Negative for neck swelling, polydipsia, polyuria, polyphagia, and marked weight changes. 20:59 Respiratory: Positive for cough, shortness of breath, wheezing, expiratory. Exam: 20:59 Constitutional: This is a well developed, well nourished patient who is awake, alert, quin and in no acute distress. Head/Face: Normocephalic, atraumatic. Eyes: Pupils equal round and reactive to light, extra-ocular motions intact. Lids and lashes normal. Conjunctiva and sclera are non-icteric and not injected. Cornea within normal limits. Periorbital areas with no swelling, redness, or edema. ENT: Nares patent. No nasal discharge, no septal abnormalities noted. Tympanic membranes are normal and external auditory canals are clear. Oropharynx with no redness, swelling, or masses, exudates, or evidence of obstruction, uvula midline. Mucous membranes moist. Neck: Trachea midline, no thyromegaly or masses palpated, and no cervical lymphadenopathy. Supple, full range of motion without nuchal rigidity, or vertebral point tenderness. No Meningismus. Chest/axilla: Normal chest wall appearance and motion. Nontender with no deformity. No lesions are appreciated. Cardiovascular: Regular rate and rhythm with a normal S1 and S2. No gallops, murmurs, or rubs. Normal PMI, no JVD. No pulse deficits. Abdomen/GI: Soft, non-tender, with normal bowel sounds. No distension or tympany. No guarding or rebound. No evidence of tenderness throughout. Back: No spinal tenderness. No costovertebral tenderness. Full range of motion. Male : Normal genitalia with no discharge or lesions. Skin: Warm, dry with normal turgor. Normal color with no rashes, no lesions, and no evidence of cellulitis. 20:59 Respiratory: the patient does not display signs of respiratory distress, Respirations: no acute changes, labored breathing, Breath sounds: bronchial sounds, decreased breath sounds, rhonchi, that are moderate, wheezing: expiratory 21:22 ECG was reviewed by the Attending Physician. [facility] Vital Signs: 18:25 BP 126 / 74; Pulse 74; Resp 18; Temp 98.6(O); Pulse Ox 99% on R/A; Weight 76.66 kg; jl7 Height 6 ft. 0 in. (182.88 cm); Pain 6/10; 20:00 BP 135 / 76; Pulse 85; Resp 18 S; Pulse Ox 99% on R/A; ad5 21:00 BP 111 / 77; Pulse 83; Resp 18 S; Pulse Ox 99% on R/A; ad5 23:47 BP 120 / 75; Pulse 82; Resp 17 S; Pulse Ox 96% on R/A; ad5 23:49 BP 120 / 71; Pulse 82; Resp 17 S; Pulse Ox 95% on R/A; ad5 18:25 Body Mass Index 22.92 (76.66 kg, 182.88 cm) jl7 MDM: 19:54 Patient medically screened. [facility] 21:01 Differential diagnosis: asthma, Bronchitis CHF exacerbation, Chronic Obstructive quin Pulmonary Disease pneumonia. Antibiotic administration: Rocephin and Zithromax given. The patient's Wells Deep Vein Thrombosis Score was calculated as follows: Total Score: 0-2 Pts- Low Risk. Differential Diagnosis: Obstructed Airway Bronchitis Influenza Upper Respiratory Infection Sinusitis Asthma Exacerbation Pneumonia. The patient's pulmonary embolism risk score was calculated as follows: Total Score: 0-2 points. This patient was found to be at low risk for a pulmonary embolism by using the Well's assessment criteria. Immunization status: Pneumococcal vaccine: Not up to date Influenza vaccine: Not up to date. Data reviewed: vital signs, nurses notes, lab test result(s), EKG, radiologic studies, CT scan, plain films. Data interpreted: grounds person: rate is 74 beats/min, rhythm is regular, Pulse oximetry: on room air is 99 %. Test interpretation: by ED physician or midlevel provider: ECG, plain radiologic studies. 09/15 20:33 Order name: Basic Metabolic Panel [facility] 09/15 20:33 Order name: CBC with Diff [facility] 09/15 20:33 Order name: LFT's [facility] 09/15 20:33 Order name: Magnesium [facility] 09/15 20:33 Order name: NT PRO-BNP [facility] 09/15 20:33 Order name: PT-INR [facility] 09/15 20:33 Order name: Troponin (emerg Dept Use Only) [facility] 09/15 20:33 Order name: Blood Culture Adult (2) [facility] 09/15 20:33 Order name: Lactate [facility] 09/15 20:34 Order name: Flu [facility] 09/15 20:34 Order name: COVID-19 : Document "Date of Symptom Onset" if Symptomatic. [facility] 09/15 21:24 Order name: Influenza Screen (A [facility] 09/15 21:24 Order name: CORONAVIRUS [facility] 09/15 21:31 Order name: CBC with Automated Diff; Complete Time: 22:10 [facility] 09/15 19:00 Order name: XRAY Chest Pa And Lat (2 Views) jl7 09/15 19:48 Order name: RAD; Complete Time: 22:10 [facility] 09/15 20:34 Order name: CT Chest For PE Angio [facility] 09/15 21:37 Order name: Protime (+INR); Complete Time: 22:10 [facility] 09/15 21:54 Order name: Lactate; Complete Time: 22:10 [facility] 09/15 22:04 Order name: Basic Metabolic Panel; Complete Time: 22:10 [facility] 09/15 22:04 Order name: Liver (Hepatic) Function; Complete Time: 22:10 [facility] 09/15 22:04 Order name: Troponin (Emerg Dept Use Only); Complete Time: 22:10 [facility] 09/15 22:04 Order name: NT PRO-BNP; Complete Time: 22:10 [facility] 09/15 22:05 Order name: Magnesium; Complete Time: 22:10 [facility] 09/15 22:34 Order name: COVID-19/FLU A+B; Complete Time: 22:39 [facility] 09/15 20:33 Order name: EKG; Complete Time: 20:34 [facility] 09/15 20:33 Order name: Cardiac monitoring; Complete Time: 21:43 [facility] 09/15 20:33 Order name: EKG - Nurse/Tech; Complete Time: 21:43 [facility] 09/15 20:33 Order name: IV Saline Lock; Complete Time: 21:44 [facility] 09/15 20:33 Order name: Labs collected and sent; Complete Time: 21:44 [facility] 09/15 20:33 Order name: O2 Per Protocol; Complete Time: 21:44 [facility] 09/15 20:33 Order name: O2 Sat Monitoring; Complete Time: 21:44 [facility] EC:22 Rate is 81 beats/min. Rhythm is regular. QRS [place] is Normal. [place] interval is normal. QRS quin interval is normal. QT interval is normal. No Q waves. T waves are Normal. No ST changes noted. Clinical impression: Normal ECG and No evidence of ischemia. Interpreted by me. Reviewed by me. Administered Medications: 21:00 Drug: Albuterol - atroVENT (ipratropium) (3:1) (2.5 mg - 0.5 mg) 3 ml Route: Nebulizer; ad5 23:35 Follow up: Response: No adverse reaction ad5 21:42 Drug: NS 0.9% 500 ml Route: IV; Rate: bolus; Site: right antecubital; ad5 23:36 Follow up: IV Status: Completed infusion ad5 21:43 Drug: SOLU-Medrol (methylPrednisoLONE) 125 mg Route: IVP; Site: right antecubital; ad5 23:35 Follow up: Response: No adverse reaction ad5 21:43 Drug: Rocephin (cefTRIAXone) 2 grams Route: IV; Rate: per protocol; Site: right ad5 antecubital; 23:35 Follow up: IV Status: Completed infusion ad5 21:43 Drug: Pepcid (famotidine) 20 mg Route: IVP; Site: right antecubital; ad5 23:35 Follow up: Response: No adverse reaction ad5 21:44 Drug: predniSONE 60 mg Route: PO; ad5 23:34 Follow up: Response: No adverse reaction ad5 21:44 Drug: Tussionex Pennkinetic ER (chlorpheniramine-hydrocodone) 5 ml Route: PO; ad5 23:34 Follow up: Response: No adverse reaction ad5 22:50 Drug: Zithromax (azithromycin) 500 mg Route: IVPB; Infused Over: 1 hrs; Site: right ad5 antecubital; 23:35 Follow up: IV Status: Completed infusion ad5 23:36 Not Given (Duplicate Order): NS 0.9% 1000 ml IV at 125 ml/hr continuous ad5 23:50 Drug: Aspirin Chewable Tablet 324 mg Route: PO; ad5 09/16 00:28 Follow up: Response: No adverse reaction ad5 09/15 23:50 Drug: Pepcid (famotidine) 20 mg Route: IVP; Site: right antecubital; ad5 09/16 00:29 Follow up: Response: No adverse reaction ad5 Disposition: 09/15/20 23:15 Discharged to Home. Impression: Cough, Acute upper respiratory infection, unspecified - Covid 19, Bronchitis, not specified as acute or chronic, Pneumonia, unspecified organism - left base. - Condition is Stable. - Discharge Instructions: Acute Bronchitis, Adult, Upper Respiratory Infection, Adult, Cool Mist Vaporizer, Upper Respiratory Infection, Adult, Amhb-lp-Iirl, Cough, Adult, [id number], Aspirin and Your Heart, Cough, Adult, COVID-19. - Prescriptions for Pepcid 20 mg Oral Tablet - take 1 tablet by ORAL route every 12 hours for 15 days; 30 tablet. Albuterol Sulfate 90 mcg/actuation Inhalation - inhale 2 puff by INHALATION route every 4-6 hours; 1 Inhaler. Zithromax 500 mg Oral Tablet - take 1 tablet by ORAL route once daily for 4 days; 4 tablet. Guaifenesin AC 10- 100 mg/5 mL Oral Liquid - take 10 milliliters by ORAL route every 6 hours As needed; 180 milliliter. Prednisone 20 mg Oral Tablet - take 2 tablets by ORAL route once daily for 6 days; 12 tablet. - Medication Reconciliation Form, Thank You Letter, Antibiotic Education, Prescription Opioid Use form. - Follow up: Private Physician; When: 2 - 3 days; Reason: Recheck today's complaints, Continuance of care, Re-evaluation by your physician. Follow up: Lobo Cespedes; When: 2 - 3 days; Reason: Recheck today's complaints, Re-evaluation by your physician. - Problem is new. - Symptoms have improved. Signatures: Dispatcher [employer] EDMS Greg Swift MD MD cha Bryson, James RN RN jb4 Conor Gonsales RN RN jl7 Harmeet Ruiz Corrections: (The following items were deleted from the chart) 01:05 09/15 23:15 09/15/2020 23:15 Discharged to Home. Impression: Cough; Acute upper jb4 respiratory infection, unspecified - Covid 19; Bronchitis, not specified as acute or chronic; Pneumonia, unspecified organism - left base. Condition is Stable. Discharge Instructions: Acute Bronchitis, Adult, Upper Respiratory Infection, Adult, Cool Mist Vaporizer, Upper Respiratory Infection, Adult, Zjpk-ko-Lwog, Cough, Adult, Quuq-wr-Dllm, Aspirin and Your Heart, Cough, Adult, COVID-19. Prescriptions for Pepcid 20 mg Oral Tablet - take 1 tablet by ORAL route every 12 hours for 15 days; 30 tablet, Albuterol Sulfate 90 mcg/actuation Inhalation - inhale 2 puff by INHALATION route every 4-6 hours; 1 Inhaler, Zithromax 500 mg Oral Tablet - take 1 tablet by ORAL route once daily for 4 days; 4 tablet, Guaifenesin AC 10-100 mg/5 mL Oral Liquid - take 10 milliliters by ORAL route every 6 hours As needed; 180 milliliter. and Forms are Medication Reconciliation Form, Thank You Letter, Antibiotic Education, Prescription Opioid Use. Follow up: Private Physician; When: 2 - 3 days; Reason: Recheck today's complaints, Continuance of care, Re-evaluation by your physician. Follow up: Lobo Cespedes; When: 2 - 3 days; Reason: Recheck today's complaints, Re-evaluation by your physician. Problem is new. Symptoms have improved. quin
--- NOTE | 2020-09-15 23:15 | ER ---
Nurse's Notes [facility] Name: Live Childs Age: 65 yrs Sex: Male : 1955 Arrival Date: 09/15/2020 Time: 17:16 Bed 4 Private MD: Diagnosis: Cough;Acute upper respiratory infection, unspecified-Covid 19;Bronchitis, not specified as acute or chronic;Pneumonia, unspecified organism-left base Presentation: 09/15 18:25 Chief complaint: Patient states: Cough, non-productive, started a couple weeks ago, jl7 coughing so hard at times that it makes him fall, reports general weakness x 3 days, diarrhea x 2 days, SYLVESTER x 4 hours, denies N/V, fatigue. Coronavirus screen: Client denies travel out of the [place] in the last 14 days. cough unrelated to allergies, diarrhea, difficulty breathing. Ebola Screen: No symptoms or risks identified at this time. Initial Sepsis Screen: Does the patient meet any 2 criteria? No. Patient's initial sepsis screen is negative. Does the patient have a suspected source of infection? No. Patient's initial sepsis screen is negative. Risk Assessment: Do you want to hurt yourself or someone else? Patient reports no desire to harm self or others. Onset of symptoms was August 29, 2020. Care prior to arrival: None. 18:25 Method Of Arrival: Ambulatory [facility] 18:25 Acuity: ALFA 3 jl7 Historical: - Allergies: 18:29 No Known Allergies; jl7 - Home Meds: 18:29 None [Active]; jl7 - PMHx: 18:29 None; jl7 - PSHx: 18:29 hip replacement; back surgery; jl7 - Immunization history:: Adult Immunizations up to date. - Social history:: Smoking status: Patient denies any tobacco usage or history of. Screenin:49 Abuse screen: Denies threats or abuse. Denies injuries from another. Nutritional ad5 screening: No deficits noted. Tuberculosis screening: No symptoms or risk factors identified. Fall Risk None identified. Assessment: 21:00 General: Appears in no apparent distress. comfortable, Behavior is calm, cooperative, ad5 appropriate for age. Pain: Complains of pain in chest. Neuro: Level of Consciousness is awake, alert, obeys commands, Oriented to person, place, time, situation, Appropriate for age. Cardiovascular: No deficits noted. Heart tones present Capillary refill < 3 seconds JVD is absent. Respiratory: Reports shortness of breath cough that is pain with cough Airway is patent Respiratory effort is even, unlabored, Respiratory pattern is regular, symmetrical, Breath sounds are diminished bilaterally. GI: No deficits noted. : No deficits noted. EENT: No deficits noted. Derm: No deficits noted. Skin is pink, warm \\T\\ dry. Musculoskeletal: No deficits noted. 21:50 Reassessment: Patient appears in no apparent distress at this time. No changes from ad5 previously documented assessment. Patient and/or family updated on plan of care and expected duration. Pain level reassessed. Patient is alert, oriented x 3, equal unlabored respirations, skin warm/dry/pink. 23:00 Reassessment: Patient appears in no apparent distress at this time. No changes from ad5 previously documented assessment. Patient and/or family updated on plan of care and expected duration. Pain level reassessed. Patient is alert, oriented x 3, equal unlabored respirations, skin warm/dry/pink. Vital Signs: 18:25 BP 126 / 74; Pulse 74; Resp 18; Temp 98.6(O); Pulse Ox 99% on R/A; Weight 76.66 kg; jl7 Height 6 ft. 0 in. (182.88 cm); Pain 6/10; 20:00 BP 135 / 76; Pulse 85; Resp 18 S; Pulse Ox 99% on R/A; ad5 21:00 BP 111 / 77; Pulse 83; Resp 18 S; Pulse Ox 99% on R/A; ad5 23:47 BP 120 / 75; Pulse 82; Resp 17 S; Pulse Ox 96% on R/A; ad5 23:49 BP 120 / 71; Pulse 82; Resp 17 S; Pulse Ox 95% on R/A; ad5 18:25 Body Mass Index 22.92 (76.66 kg, 182.88 cm) 7 ED Course: 17:16 Patient arrived in ED. am2 18:28 Triage completed. jl7 18:29 Arm band placed on right wrist. 7 19:54 Greg Swift MD is Attending Physician. quin 20:00 Patient has correct armband on for positive identification. Placed in gown. Bed in low ad5 position. Call light in reach. Side rails up X2. 20:21 Chavez Reeves, RN is Primary Nurse. jb4 21:00 Inserted saline lock: 20 gauge in right antecubital area, using aseptic technique. ad5 21:12 Initial lab(s) drawn, by me, sent to lab. First set of blood cultures drawn Second set ad5 of blood cultures drawn by me, COVID swab sent to lab. 21:25 COVID-19 : Document "Date of Symptom Onset" if Symptomatic. Sent. ad5 21:25 Flu Sent. ad5 21:44 No provider procedures requiring assistance completed. ad5 23:14 Lobo Cespedes MD is Referral Physician. quin 09/16 00:29 IV discontinued, intact, bleeding controlled, No redness/swelling at site. Pressure ad5 dressing applied. Administered Medications: 09/15 21:00 Drug: Albuterol - atroVENT (ipratropium) (3:1) (2.5 mg - 0.5 mg) 3 ml Route: Nebulizer; ad5 23:35 Follow up: Response: No adverse reaction ad5 21:42 Drug: NS 0.9% 500 ml Route: IV; Rate: bolus; Site: right antecubital; ad5 23:36 Follow up: IV Status: Completed infusion ad5 21:43 Drug: SOLU-Medrol (methylPrednisoLONE) 125 mg Route: IVP; Site: right antecubital; ad5 23:35 Follow up: Response: No adverse reaction ad5 21:43 Drug: Rocephin (cefTRIAXone) 2 grams Route: IV; Rate: per protocol; Site: right ad5 antecubital; 23:35 Follow up: IV Status: Completed infusion ad5 21:43 Drug: Pepcid (famotidine) 20 mg Route: IVP; Site: right antecubital; ad5 23:35 Follow up: Response: No adverse reaction ad5 21:44 Drug: predniSONE 60 mg Route: PO; ad5 23:34 Follow up: Response: No adverse reaction ad5 21:44 Drug: Tussionex Pennkinetic ER (chlorpheniramine-hydrocodone) 5 ml Route: PO; ad5 23:34 Follow up: Response: No adverse reaction ad5 22:50 Drug: Zithromax (azithromycin) 500 mg Route: IVPB; Infused Over: 1 hrs; Site: right ad5 antecubital; 23:35 Follow up: IV Status: Completed infusion ad5 23:36 Not Given (Duplicate Order): NS 0.9% 1000 ml IV at 125 ml/hr continuous ad5 23:50 Drug: Aspirin Chewable Tablet 324 mg Route: PO; ad5 09/16 00:28 Follow up: Response: No adverse reaction ad5 09/15 23:50 Drug: Pepcid (famotidine) 20 mg Route: IVP; Site: right antecubital; ad5 09/16 00:29 Follow up: Response: No adverse reaction ad5 Outcome: 09/15 23:15 Discharge ordered by . quin 09/16 00:29 Discharged to home ambulatory, with family. ad5 Condition: stable Discharge instructions given to patient, Instructed on discharge instructions, follow up and referral plans. medication usage, Demonstrated understanding of instructions, follow-up care, medications. 01:05 Patient left the ED. jb4 Signatures: Greg Swift MD MD cha Bryson, James, RN RN jb4 Conor Gonsales RN RN jl7 Gosia Cisneros Andrea ad5 Corrections: (The following items were deleted from the chart) 09/15 18:31 18:25 Chief complaint: Patient states: Cough started a couple weeks ago, coughing so jl7 hard at times that it makes him fall, reports general weakness x 3 days, diarrhea x 2 days, SYLVESTER x 4 hours, denies N/V jl7
[2020-09-16 01:17] VITALS: TEMP 98.6
[2020-09-16 01:23] VITALS: BP 120/71; O2SAT 95
--- NOTE | 2020-09-16 08:42 | EKG ---
Test Date: 2020-09-15 Test Time: 21:02:56 Administrative Manager: JARETH MEASUREMENT RESULTS: Intervals: Rate: 81 MD: 196 QRSD: 90 QT: 378 QTc: 439 Ider: P: 69 MD: 196 QRS: 14 T: 67 INTERPRETIVE STATEMENTS: Normal sinus rhythm Normal ECG Compared to ECG 07/26/2020 01:16:00 No significant changes Electronically Signed On 09-16-20 08:41:16 CDT by Rigoberto Green
--- NOTE | 2020-09-16 11:49 | RAD REPORT ---
EXAM DESCRIPTION: CT - Chest For Pe Angio - 09/16/2020 7:09 am CLINICAL HISTORY: Cough; Dyspnea TECHNIQUE: Contiguous axial images obtained through the chest during angiographic phase following th e uneventful administration of IV contrast. Sagittal and coronal reformatted images were provided. LA P reformatted images were provided. This exam was performed according to our departmental dose-optimization program, which includes autom ated exposure control, adjustment of the mA and/or kV according to patient size and/or use of iterati ve reconstruction technique. COMPARISON: Correlation is made with report only from study dated 07/26/2020. FINDINGS: Diagnostic quality: There is good opacification of the pulmonary arterial tree. Motion art ifact degrades image quality and limits evaluation of segmental and subsegmental vessels. Lungs: Focal left lower lobe groundglass opacification. Dependent bibasilar groundglass opacities are present. Airways are patent. Pleura: No effusion. No pneumothorax. Heart and pericardium: The heart is normal in size. No pericardial effusion. Mediastinum and lupillo: Calcified right hilar lymph nodes. No pathologically enlarged lymph nodes. Lower neck and chest wall: Unremarkable Vessels: No pulmonary arterial filling defects. Mild atherosclerotic disease. No thoracic aortic aneu rysm. Upper abdomen: Unremarkable Bones: Multilevel spondylosis. No acute fracture. IMPRESSION: 1. Motion artifact degrades image quality and limits evaluation of segmental and subse gmental vessels. No central pulmonary embolic disease. 2. Focal left lower lobe infiltrate. Dependent bibasilar groundglass opacities suggestive of atelec tasis. 3. Other findings as above. Electronically signed by: Delphine Farrell MD 09/15/2020 10:56 PM CDT Due to temporary technical issues with the PACS/Fluency reporting system, reports are being signed by the in house radiologists without review as a courtesy to insure prompt reporting. The interpreting radiologist is fully responsible for the content of the report.
== END 2020-09-16 01:05 | disposition home or self-care (01) ==
LOC: ER 17:12
DX: U07.1 COVID-19 (principal); J40 Bronchitis, not specified as acute or chronic; J18.9 Pneumonia, unspecified organism
CPT/HCPCS: 93005; 87040 ×2; 85025; 80048; 36415; 83735; 85610; 80076; 83605; 84484; 83880; 0240U; 71275; 71046; Q9967; J0456; J7050; J7040; J2930; 96365; 96375; 99284; J7512

== ENCOUNTER 2020-09-20 18:59 | Emergency (ER) | payer OTHER ==
--- OUTSIDE RECORDS SUMMARY | 2020-09-20 19:01 | XMS REPORT | Continuity of Care Document ---
:1955 Author Organization [facility] Address [address] [place] [address] Dr. Shaw [address] [place] [id number] Care Team Providers Name Role Phone Unavailable Unavailable Unavailable Problems This patient has no known problems. Allergies, Adverse Reactions, Alerts This patient has no known allergies or adverse reactions. Medications This patient has no known medications. Procedures This patient has no known procedures. Results This patient has no known results.
[2020-09-20 20:12] LABS: Absolute Lymphocytes (CBC) 0.9 K/uL (0.7-4.9); Basophils % 0.2 % (0-1.3); Hematocrit 45.3 % (39.6-49.0); Lymphocytes % 14.4 % (15.3-44.8); MPV 8.5 fL (7.6-11.3); RBC Red Blood Cell Count 4.93 M/uL (4.33-5.43)
[2020-09-20 20:16] LABS: Protime INR 1.15
--- NOTE | 2020-09-20 20:26 | RAD REPORT ---
EXAM DESCRIPTION: Collin Single View09/20/2020 8:08 pm CLINICAL HISTORY: cough COMPARISON: September 15, 2020 FINDINGS: Mild left basilar lung opacity. The remainder lungs appear clear of acute infiltrate. Heart is mildly enlarged IMPRESSION: Mild left basilar lung opacity probably pneumonia
[2020-09-20 20:28] LABS: ALT/SGPT 27 U/L (12-78); AST/SGOT 21 U/L (15-37); Albumin 3.7 g/dL (3.4-5.0); Alkaline Phosphatase 84 U/L (45-117); BUN Blood Urea Nitrogen 12 mg/dL (7-18); Bicarbonate 27 mmol/L (21-32); Bilirubin Direct 0.1 mg/dL (0-0.2); Bilirubin Total 0.6 mg/dL (0.2-1.0); C-Reactive Protein 5.74 mg/L (<3.00); Glucose Level 109 mg/dL (74-106); Magnesium 2.2 mg/dL (1.8-2.4); NT PRO-BNP 191 pg/mL (<125); Potassium 3.8 mmol/L (3.5-5.1); Protein, Total 7.3 g/dL (6.4-8.2); Sodium Level 137 mmol/L (136-145); Troponin (Emerg Dept Use Only) < 0.02 ng/mL (0.0-0.045)
[2020-09-20] MEDS ORDERED: ONDANSETRON 4 MG/2 ML VIAL ONE (20:35)
[2020-09-20] MEDS ORDERED: NA CHLORIDE 0.9% 500 ML ONE ×2 (20:35→22:00)
[2020-09-20] MEDS ORDERED: METHYLPREDNISOLONE 125 MG INJ ONE (20:35)
[2020-09-20] MEDS ORDERED: FAMOTIDINE 20 MG/2 ML VIAL IV ONE (20:36)
--- NOTE | 2020-09-20 21:46 | ER ---
Nurse's Notes [facility] Name: Live Childs Age: 65 yrs Sex: Male : 1955 Arrival Date: 09/20/2020 Time: 19:03 Bed 16 Private MD: Diagnosis: Other pneumonia, unspecified organism;Nausea and vomiting Presentation: 09/20 19:30 Chief complaint: Patient states: he has had SOB, cough, weakness with vomiting x 3 bb days. Coronavirus screen: cough unrelated to allergies, shortness of breath, vomiting. Client presents with at least one sign or symptom that may indicate coronavirus-19. Standard/surgical mask placed on the client. Ebola Screen: No symptoms or risks identified at this time. Initial Sepsis Screen: Does the patient meet any 2 criteria? No. Patient's initial sepsis screen is negative. Does the patient have a suspected source of infection? No. Patient's initial sepsis screen is negative. Risk Assessment: Do you want to hurt yourself or someone else? Patient reports no desire to harm self or others. Onset of symptoms was September 17, 2020. 19:30 Method Of Arrival: Ambulatory bb 19:30 Acuity: ALFA 3 bb Historical: - Allergies: 19:33 No Known Allergies; bb - Home Meds: 19:33 None [Active]; bb - PMHx: 19:33 None; bb - PSHx: 19:33 back surgery; neck surgery; eye surgery; hip replacement; Knee surgery; bb - Immunization history:: Adult Immunizations up to date. - Social history:: Smoking status: Patient denies any tobacco usage or history of. Screenin:00 Abuse screen: Denies threats or abuse. Denies injuries from another. Nutritional wh screening: No deficits noted. Tuberculosis screening: No symptoms or risk factors identified. Fall Risk None identified. Assessment: 19:40 General: Appears in no apparent distress. Behavior is calm, cooperative, appropriate wh for age. Pain: Denies pain. Neuro: Level of Consciousness is awake, alert, obeys commands, Oriented to person, place, time, situation, Appropriate for age. Neuro: Reports dizziness. Cardiovascular: Heart tones S1 S2. Respiratory: Reports shortness of breath cough that is Airway is patent Respiratory effort is even, unlabored, Respiratory pattern is regular, symmetrical, Breath sounds are clear bilaterally. GI: Bowel sounds present X 4 quads. Abd is soft and non tender X 4 quads. Reports nausea. : No signs and/or symptoms were reported regarding the genitourinary system. EENT: No signs and/or symptoms were reported regarding the EENT system. Derm: Skin is intact, is healthy with good turgor, Skin is pink, warm \T\ dry. normal. Musculoskeletal: Circulation, motion, and sensation intact. 20:45 Reassessment: Patient appears in no apparent distress at this time. No changes from previously documented assessment. Patient and/or family updated on plan of care and expected duration. Pain level reassessed. Patient is alert, oriented x 3, equal unlabored respirations, skin warm/dry/pink. 21:50 Reassessment: Patient appears in no apparent distress at this time. Patient and/or family updated on plan of care and expected duration. Pain level reassessed. Patient is alert, oriented x 3, equal unlabored respirations, skin warm/dry/pink. Pt with DC order, just started Ivf bolus and will DC once done. 22:42 Reassessment: Patient appears in no apparent distress at this time. Patient and/or family updated on plan of care and expected duration. Pain level reassessed. Patient is alert, oriented x 3, equal unlabored respirations, skin warm/dry/pink. Vital Signs: 19:30 BP 139 / 83; Pulse 108; Resp 20 S; Temp 99.1(O); Pulse Ox 100% on R/A; Weight 76.2 kg bb (R); Height 6 ft. 0 in. (182.88 cm) (R); Pain 0/10; 20:45 BP 149 / 81; Pulse 85; Resp 18; Pulse Ox 97% ; wh 22:30 BP 112 / 74; Pulse 91; Resp 18; Pulse Ox 96% on R/A; 19:30 Body Mass Index 22.78 (76.20 kg, 182.88 cm) ED Course: 19:03 Patient arrived in ED. mr 19:26 J Carlos Sam, RN is Primary Nurse. 19:32 Triage completed. 19:33 Arm band placed on Patient placed in an exam room, on a stretcher, on pulse oximetry. Family accompanied patient. 19:40 Inserted saline lock: 20 gauge in left antecubital area, using aseptic technique. Blood wh collected. 19:42 [facility] cp 19:42 Rickie Garcia MD is Attending Physician. cp 19:45 Patient has correct armband on for positive identification. Placed in gown. Bed in low wh position. Call light in reach. Side rails up X 1. monitoring tech on. Pulse ox on. NIBP on. 20:07 XRAY Chest (1 view) In Process Unspecified. EDMS 21:44 Lobo Cespedes MD is Referral Physician. cp 22:43 No provider procedures requiring assistance completed. IV discontinued, intact, wh bleeding controlled, No redness/swelling at site. Administered Medications: 20:25 Drug: Zofran (Ondansetron) 4 mg Route: IVP; Site: left antecubital; 20:53 Follow up: Response: No adverse reaction; Nausea is decreased 20:25 Drug: NS 0.9% 500 ml Route: IV; Rate: bolus; Site: left antecubital; 21:39 Follow up: Response: No adverse reaction; IV Status: Completed infusion 20:26 Drug: Pepcid (famotidine) 20 mg Route: IVP; Site: left antecubital; 20:53 Follow up: Response: No adverse reaction 20:26 Drug: SOLU-Medrol (methylPrednisoLONE) 125 mg Route: IVP; Site: left antecubital; 20:52 Follow up: Response: No adverse reaction 21:39 Drug: Tussionex Pennkinetic ER (chlorpheniramine-hydrocodone) 5 ml Route: PO; 22:44 Follow up: Response: No adverse reaction; Marked relief of symptoms 21:43 Drug: NS 0.9% 500 ml Route: IV; Rate: bolus; Site: left antecubital; 22:44 Follow up: Response: No adverse reaction; IV Status: Completed infusion 21:45 Drug: Rocephin (cefTRIAXone) 1 grams Route: IV; Rate: calculated rate; Site: left wh antecubital; 22:43 Follow up: Response: No adverse reaction; IV Status: Completed infusion Outcome: 21:45 Discharge ordered by MD. cp 22:43 Discharged to home via wheelchair, with family. 22:43 Condition: stable 22:43 Discharge instructions given to patient, family, Instructed on discharge instructions, follow up and referral plans. medication usage, POC Demonstrated understanding of instructions, follow-up care, medications, POC Prescriptions given X 3. 22:44 Patient left the ED. nilson Signatures: Dispatcher [employer] MARCELINA PerezHyacinth paz Brenda, RN RN Greg Fry PA PA cp Habalo, Winsy, RN RN wh
--- NOTE | 2020-09-20 21:46 | EDPHYS ---
Physician Documentation [facility] Name: Live Childs Age: 65 yrs Sex: Male : 1955 Arrival Date: 09/20/2020 Time: 19:03 Bed 16 Private MD: ED Physician Rickie Garcia HPI: 09/20 19:40 This 65 yrs old Male presents to ER via Ambulatory with complaints of cp Abdominal Pain, Vomiting, Cough, Dizziness. 19:40 The patient has shortness of breath with light activity. cp 19:40 Onset: The symptoms/episode began/occurred gradually, and became worse today. Duration: cp The symptoms are continuous. Associated signs and symptoms: Pertinent positives: productive cough, dizziness, vomiting, abdominal pain from cough. Severity of symptoms: in the emergency department the symptoms are unchanged despite home interventions. Patient reports being recently diagnosed with COVID-19. Reports he is currently taking Zithromax and Prednisone. Historical: - Allergies: 19:33 No Known Allergies; bb - Home Meds: 19:33 None [Active]; bb - PMHx: 19:33 None; bb - PSHx: 19:33 back surgery; neck surgery; eye surgery; hip replacement; Knee surgery; bb - Immunization history:: Adult Immunizations up to date. - Social history:: Smoking status: Patient denies any tobacco usage or history of. ROS: 19:50 Constitutional: Positive for poor PO intake, Negative for body aches, chills, fever. cp 19:50 Eyes: Negative for injury, pain, redness, and discharge. cp 19:50 ENT: Negative for ear pain, sore throat, difficulty swallowing, difficulty handling cp secretions. 19:50 Cardiovascular: Negative for chest pain, edema, palpitations. 19:50 Respiratory: Positive for cough, shortness of breath, Negative for wheezing. 19:50 Abdomen/GI: Positive for abdominal pain, nausea and vomiting. 19:50 Back: Negative for radiated pain. cp 19:50 Neuro: Positive for dizziness, Negative for altered mental status, syncope, weakness. 19:50 All other systems are negative. cp Exam: 19:45 ECG was reviewed by the Attending Physician. cp 19:53 Constitutional: The patient appears in no acute distress, alert, awake, cp non-diaphoretic, well developed, well nourished, obviously ill. 19:53 Head/Face: Normocephalic, atraumatic. cp 19:53 Eyes: Periorbital structures: appear normal, Conjunctiva: normal, no exudate, no injection, Sclera: no appreciated abnormality, Lids and lashes: appear normal, bilaterally. 19:53 ENT: External ear(s): are unremarkable, Nose: is normal, Mouth: Lips: moist, Oral mucosa: moist, Posterior pharynx: Airway: no evidence of obstruction, patent. 19:53 Neck: ROM/movement: is normal, is supple, no meningismus, no nuchal rigidity. 19:53 Chest/axilla: Inspection: normal, Palpation: is normal, no crepitus, no tenderness. 19:53 Cardiovascular: Rate: tachycardic, Rhythm: regular, Edema: is not appreciated, JVD: is not appreciated. 19:53 Respiratory: the patient does not display signs of respiratory distress, Respirations: labored breathing, is not present, intercostal retractions, are absent, tachypnea, is not appreciated, Breath sounds: bronchial sounds, that are mild, are heard diffusely, decreased breath sounds, are not appreciated, stridor, is not appreciated, wheezing: is not appreciated. 19:53 Abdomen/GI: Inspection: abdomen appears normal, Bowel sounds: active, all quadrants, Palpation: abdomen is soft and non-tender, in all quadrants. 19:53 Skin: no rash present. 19:53 Neuro: Orientation: to person, place \T\ time. Mentation: is normal. Vital Signs: 19:30 BP 139 / 83; Pulse 108; Resp 20 S; Temp 99.1(O); Pulse Ox 100% on R/A; Weight 76.2 kg bb (R); Height 6 ft. 0 in. (182.88 cm) (R); Pain 0/10; 20:45 BP 149 / 81; Pulse 85; Resp 18; Pulse Ox 97% ; wh 22:30 BP 112 / 74; Pulse 91; Resp 18; Pulse Ox 96% on R/A; wh 19:30 Body Mass Index 22.78 (76.20 kg, 182.88 cm) bb MDM: 19:46 Patient medically screened. cp 21:45 Data reviewed: vital signs, nurses notes, lab test result(s), EKG, radiologic studies, cp plain films. 21:45 Test interpretation: by ED physician or midlevel provider: ECG, plain radiologic cp studies. Counseling: I had a detailed discussion with the patient and/or guardian regarding: the historical points, exam findings, and any diagnostic results supporting the discharge/admit diagnosis, lab results, radiology results, to return to the emergency department if symptoms worsen or persist or if there are any questions or concerns that arise at home. 09/20 19:57 Order name: Basic Metabolic Panel 09/20 19:57 Order name: CBC with Diff 09/20 19:57 Order name: LFT's 09/20 19:57 Order name: Magnesium cp 09/20 19:57 Order name: NT PRO-BNP; Complete Time: 20:33 cp 09/20 20:33 Interpretation: NT PRO-BNP 191; Reviewed. 09/20 19:57 Order name: PT-INR; Complete Time: 20:33 cp 09/20 20:33 Interpretation: Reviewed. 09/20 19:57 Order name: Troponin (emerg Dept Use Only); Complete Time: 20:33 09/20 19:57 Order name: XRAY Chest (1 view); Complete Time: 20:33 cp 09/20 20:34 Interpretation: Report review. 09/20 19:57 Order name: CRP; Complete Time: 20:33 cp 09/20 20:34 Interpretation: Abnormal: C-REACTIVE PROT 5.74. 09/20 19:57 Order name: Basic Metabolic Panel; Complete Time: 20:33 EDTN 09/20 19:57 Order name: CBC with Automated Diff; Complete Time: 20:33 EDTN 09/20 20:34 Interpretation: Normal except: WBC 6.30; PLT 187; JOSEPH% 77.7; LYM% 14.4. cp 09/20 19:57 Order name: Liver (Hepatic) Function; Complete Time: 20:33 EDTN 09/20 20:35 Interpretation: Normal except: GLOB 3.6; A/G 1.0. cp 09/20 19:57 Order name: Magnesium; Complete Time: 20:33 EDTN 09/20 19:57 Order name: EKG; Complete Time: 19:58 cp 09/20 19:57 Order name: Cardiac monitoring; Complete Time: 20:01 cp 09/20 19:57 Order name: EKG - Nurse/Tech; Complete Time: 20:58 cp 09/20 19:57 Order name: IV Saline Lock; Complete Time: 20:58 cp 09/20 19:57 Order name: Labs collected and sent; Complete Time: 20:58 cp 09/20 19:57 Order name: O2 Per Protocol; Complete Time: 20:58 cp 09/20 19:57 Order name: O2 Sat Monitoring; Complete Time: 20:58 cp EC:45 Rate is 99 beats/min. Rhythm is regular. IA interval is normal. QRS interval is normal. cp QT interval is normal. T waves are Inverted in lead aVR. Interpreted by me. Reviewed by me. Administered Medications: 20:25 Drug: Zofran (Ondansetron) 4 mg Route: IVP; Site: left antecubital; 20:53 Follow up: Response: No adverse reaction; Nausea is decreased 20:25 Drug: NS 0.9% 500 ml Route: IV; Rate: bolus; Site: left antecubital; 21:39 Follow up: Response: No adverse reaction; IV Status: Completed infusion 20:26 Drug: Pepcid (famotidine) 20 mg Route: IVP; Site: left antecubital; 20:53 Follow up: Response: No adverse reaction 20:26 Drug: SOLU-Medrol (methylPrednisoLONE) 125 mg Route: IVP; Site: left antecubital; 20:52 Follow up: Response: No adverse reaction 21:39 Drug: Tussionex Pennkinetic ER (chlorpheniramine-hydrocodone) 5 ml Route: PO; 22:44 Follow up: Response: No adverse reaction; Marked relief of symptoms 21:43 Drug: NS 0.9% 500 ml Route: IV; Rate: bolus; Site: left antecubital; 22:44 Follow up: Response: No adverse reaction; IV Status: Completed infusion 21:45 Drug: Rocephin (cefTRIAXone) 1 grams Route: IV; Rate: calculated rate; Site: left antecubital; 22:43 Follow up: Response: No adverse reaction; IV Status: Completed infusion Disposition: 09/21 04:31 Co-signature as Attending Physician, Rickie Garcia MD. pkl Disposition: 09/20/20 21:45 Discharged to Home. Impression: Other pneumonia, unspecified organism, Nausea and vomiting. - Condition is Stable. - Discharge Instructions: Dehydration, Adult, Nausea and Vomiting, Adult, COVID-19. - Prescriptions for Augmentin 875- 125 mg Oral Tablet - take 1 tablet by ORAL route every 12 hours for 10 days; 20 tablet. Zofran 4 mg Oral Tablet - take 1 tablet by ORAL route every 12 hours As needed; 20 tablet. Guaifenesin AC 10- 100 mg/5 mL Oral Liquid - take 10 milliliter by ORAL route every 4 hours As needed; 240 milliliter. - Medication Reconciliation Form, Thank You Letter, Antibiotic Education, Prescription Opioid Use form. - Follow up: Lobo Cespedes MD; When: 1 - 2 days; Reason: Recheck today's complaints. - Problem is an ongoing problem. - Symptoms have improved. Signatures: Dispatcher [employer] EDMS Rickie Garcia MD MD pkl Ballard, Brenda RN RN Greg Fry PA PA J Carlos Bill RN RN Corrections: (The following items were deleted from the chart) 09/20 22:44 21:45 09/20/2020 21:45 Discharged to Home. Impression: Other pneumonia, unspecified wh organism; Nausea and vomiting. Condition is Stable. Forms are Medication Reconciliation Form, Thank You Letter, Antibiotic Education, Prescription Opioid Use. Follow up: Lobo Cespedes; When: 1 - 2 days; Reason: Recheck today's complaints. Problem is an ongoing problem. Symptoms have improved. cp 09/21 20:39 09/19 19:40 This 65 yrs old Male presents to ER via Ambulatory with cp complaints of Abdominal Pain, Vomiting, Cough, Dizziness. cp 09/21 20:52 09/20 19:50 All other systems are negative, cp cp
[2020-09-20] MEDS ORDERED: HYDROCODONE/CHLORPHEN 5 ML/OSYR ONE (21:57)
[2020-09-20] MEDS ORDERED: CEFTRIAXONE/SWI 1gm 1 GM/10 ML SYR ONE (22:00)
[2020-09-20 22:50] VITALS: TEMP 99.1
[2020-09-20 22:53] VITALS: BP 112/74; O2SAT 96
== END 2020-09-20 22:44 | disposition home or self-care (01) ==
LOC: ER 18:59
DX: J18.8 Other pneumonia, unspecified organism (principal); R11.2 Nausea with vomiting, unspecified; Z86.16 Personal history of COVID-19
CPT/HCPCS: 93005; 85025; 80048; 36415; 83735; 85610; 80076; 84484; 83880; 86140; 71045; J0696; J7040 ×2; J2930; J2405; 96361; 96365; 96375; 99284

== ENCOUNTER 2020-09-22 17:09 | Inpatient (IN) | payer OTHER ==
--- OUTSIDE RECORDS SUMMARY | 2020-09-22 17:11 | XMS REPORT | Continuity of Care Document ---
:1955 Author Organization [facility] t Address [address] [place] [address] Dr. Shaw [address] [place] [id number] Care Team Providers Name Role Phone Unavailable Unavailable Unavailable Problems This patient has no known problems. Allergies, Adverse Reactions, Alerts This patient has no known allergies or adverse reactions. Medications This patient has no known medications. Procedures This patient has no known procedures. Results This patient has no known results.
[2020-09-22 17:56] LABS: Absolute Lymphocytes (CBC) 0.9 K/uL (0.7-4.9); Basophils % 0.3 % (0-1.3); Hematocrit 45.1 % (39.6-49.0); Lymphocytes % 12.1 % (15.3-44.8); MPV 8.4 fL (7.6-11.3); RBC Red Blood Cell Count 4.85 M/uL (4.33-5.43)
--- NOTE | 2020-09-22 18:01 | RAD REPORT ---
EXAM DESCRIPTION: RAD - Chest Single View - 09/22/2020 5:46 pm CLINICAL HISTORY: Cough;SOB, recent COVID Diagnosis COMPARISON: Portable chest September 20, CT chest September 15 TECHNIQUE: AP portable chest image was obtained 09/22/2020 5:46 pm . FINDINGS: Lung volumes are normal. Patchy alveolar opacities are present in the mid and lower lung f ields. No acute apex finding. Heart and vasculature are normal. No measurable pleural effusion and no pneumothorax. No acute bony abnormality seen. No acute aortic findings suspected. IMPRESSION: Bilateral COVID-19 pneumonia findings are evident. Findings appear to have progressed si nce the CT study of September 15.
[2020-09-22 18:05] LABS: Protime INR 1.12
[2020-09-22] MEDS ORDERED: NA CHLORIDE 0.9% 1,000 ML ONE ×2 (18:09→19:15)
[2020-09-22] MEDS ORDERED: ONDANSETRON 4 MG/2 ML VIAL ONE (18:09)
[2020-09-22] MEDS ORDERED: METHYLPREDNISOLONE 125 MG INJ ONE (18:09)
[2020-09-22 18:23] LABS: ALT/SGPT 26 U/L (12-78); Albumin 3.3 g/dL (3.4-5.0); Alkaline Phosphatase 77 U/L (45-117); BUN Blood Urea Nitrogen 11 mg/dL (7-18); Bicarbonate 29 mmol/L (21-32); Bilirubin Direct 0.1 mg/dL (0-0.2); Bilirubin Total 0.6 mg/dL (0.2-1.0); Glucose Level 90 mg/dL (74-106); NT PRO-BNP 135 pg/mL (<125); Sodium Level 133 mmol/L (136-145); Troponin (Emerg Dept Use Only) < 0.02 ng/mL (0.0-0.045)
[2020-09-22 18:24] LABS: Ferritin 298.8 ng/mL (26-388)
[2020-09-22 18:25] LABS: AST/SGOT 26 U/L (15-37); Magnesium 1.9 mg/dL (1.8-2.4); Potassium 3.4 mmol/L (3.5-5.1)
[2020-09-22 18:50] LABS: SARS-COV-2 RT PCR POSITIVE (NEGATIVE)
--- NOTE | 2020-09-22 19:02 | RAD REPORT ---
EXAM DESCRIPTION: CT - Chest For Pe Angio - 09/22/2020 6:41 pm CLINICAL HISTORY: Cough;SOB COMPARISON: Chest For Pe Angio dated 09/15/2020; Chest Single View dated 09/22/2020 TECHNIQUE: Dynamically enhanced 3 mm thick images of the chest were obtained during administration o f approximately 150mL Isovue 370 IV contrast. Coronal and oblique MIP reconstruction images were gene rated and reviewed. Exam utilizes a protocol to evaluate the pulmonary arterial tree. All CT scans are performed using dose optimization technique as appropriate and may include automated exposure control or mA/KV adjustment according to patient size. FINDINGS: No pulmonary emboli are identified. The aorta as imaged shows no acute or suspicious finding. No pericardial thickening or effusion. Peripheral ground-glass opacities are present in the mid and lower lung diggs. These opacities match the chest film finding and are consistent with a bilateral mild to moderate severity COVID-19 pneumo honey. No pleural effusion or pleural thickening. No mediastinal or hilar suspicious masses. No chest wall masses or abnormal axillary lymphadenopathy. IMPRESSION: No pulmonary emboli identified. Mild to moderate severity bilateral COVID-19 pneumonia.
[2020-09-22] MEDS ORDERED: BENZONATATE 100 MG CAP PO ONE (19:15)
[2020-09-22] MEDS ORDERED: HYDROCODONE/CHLORPHEN 5 ML/OSYR ONE (19:53)
[2020-09-22] MEDS ORDERED: POTASSIUM 25 MEQ EFFERV TAB ONE (19:53)
--- NOTE | 2020-09-22 20:08 | EDPHYS ---
Physician Documentation [facility] Name: Live Childs Age: 65 yrs Sex: Male : 1955 Arrival Date: 09/22/2020 Time: 17:11 Bed 5 Private MD: ED Physician Michoacano Crowe HPI: 09/22 17:30 This 65 yrs old Male presents to ER via Wheelchair with complaints of cp Breathing Difficulty, Cough. 17:30 The patient has shortness of breath at rest. cp 17:30 Onset: The symptoms/episode began/occurred last week. Duration: The symptoms are cp continuous, and are steadily getting worse. 17:30 Associated signs and symptoms: Pertinent positives: nausea, Pertinent negatives: fever. cp Patient reports testing positive for COVID-19 last week. Historical: - Allergies: 17:21 No Known Allergies; ca1 - Home Meds: 17:21 None [Active]; ca1 - PMHx: 17:21 None; ca1 - PSHx: 17:21 back surgery; neck surgery; eye surgery; hip replacement; Knee surgery; ca1 - Immunization history:: Client reports having NOT received the Covid vaccine. Pneumococcal vaccine is not up to date, Flu vaccine is not up to date. - Social history:: Smoking status: Patient denies any tobacco usage or history of. ROS: 17:35 Constitutional: Positive for poor PO intake, Negative for fever. cp 17:35 Eyes: Negative for injury, pain, redness, and discharge. cp 17:35 Neck: Negative for stiffness. 17:35 Cardiovascular: Negative for chest pain, edema, palpitations. 17:35 Respiratory: Positive for cough, "sounds productive", shortness of breath. 17:35 Abdomen/GI: Positive for nausea and vomiting, Negative for abdominal pain, diarrhea, constipation. 17:35 Skin: Negative for rash. 17:35 Neuro: Positive for weakness, Negative for altered mental status. 17:35 All other systems are negative. Exam: 17:40 Constitutional: The patient appears in no acute distress, alert, awake, cp non-diaphoretic, well developed, well nourished, in obvious distress, mildly distressed, obviously ill. 17:40 Head/Face: Normocephalic, atraumatic. cp 17:40 Eyes: Periorbital structures: appear normal, Conjunctiva: normal, no exudate, no injection, Sclera: no appreciated abnormality, Lids and lashes: appear normal, bilaterally. 17:40 ENT: External ear(s): are unremarkable, Nose: is normal, Mouth: Lips: dry, Oral mucosa: moist, Posterior pharynx: Airway: no evidence of obstruction, patent. 17:40 Neck: ROM/movement: is normal, is supple, no meningismus, no nuchal rigidity. 17:40 Chest/axilla: Inspection: normal, Palpation: is normal, no crepitus, no tenderness. 17:40 Cardiovascular: Rate: tachycardic, Rhythm: regular, Edema: is not appreciated, JVD: is not appreciated. 17:40 Respiratory: the patient does not display signs of respiratory distress, Respirations: labored breathing, that is mild, shallow respirations, that is mild, Breath sounds: bronchial sounds, that are moderate, are heard diffusely. 17:40 Abdomen/GI: Inspection: abdomen appears normal, Palpation: abdomen is soft and non-tender, in all quadrants. 17:40 Skin: cellulitis, is not appreciated, no rash present. 17:40 Neuro: Orientation: to person, place \\T\\ time. Mentation: is normal, Motor: moves all fours, strength is normal. 17:43 ECG was reviewed by the Attending Physician. Vital Signs: 17:18 BP 139 / 95; Pulse 109; Resp 20; Pulse Ox 97% on R/A; Weight 83.91 kg; Height 6 ft. tr6 (182.88 cm); 17:19 Temp 100.2(O); ca1 19:03 BP 134 / 75; Pulse 98; Resp 18; Pulse Ox 99% ; tr6 19:44 BP 129 / 74; Pulse 101; Resp 20 S; Pulse Ox 96% on 2 lpm NC; ad5 21:03 BP 102 / 75; Pulse 96; Resp 16; Pulse Ox 95% on NC; jm8 22:22 BP 114 / 70; Pulse 93; Resp 16; Pulse Ox 95% ; jm8 17:18 Body Mass Index 25.09 (83.91 kg, 182.88 cm) tr6 MDM: 17:33 Patient medically screened. 19:36 Data reviewed: vital signs, nurses notes, lab test result(s), EKG, radiologic studies, cp CT scan, plain films. Test interpretation: by ED physician or midlevel provider: ECG, plain radiologic studies. Physician consultation: Herson GONZALEZ was called at 19:30, was contacted at 19:30, regarding admission, to the medical/surgical unit. patient's condition, and will see patient in ED, shortly. 09/22 17:30 Order name: Basic Metabolic Panel 09/22 17:30 Order name: CBC with Diff 09/22 17:30 Order name: LFT's cp 09/22 17:30 Order name: Magnesium cp 09/22 17:30 Order name: NT PRO-BNP 09/22 17:30 Order name: PT-INR 09/22 17:30 Order name: Troponin (emerg Dept Use Only); Complete Time: 18:34 cp 09/22 17:30 Order name: Blood Culture Adult (2) 09/22 17:30 Order name: CRP; Complete Time: 18:34 09/22 18:34 Interpretation: Abnormal: C-REACTIVE PROT 21.10. 09/22 17:30 Order name: Lactate; Complete Time: 18:34 cp 09/22 17:30 Order name: Ferritin; Complete Time: 18:34 cp 09/22 17:30 Order name: XRAY Chest (1 view); Complete Time: 18:05 09/22 18:05 Interpretation: Report reviewed. 09/22 17:31 Order name: Basic Metabolic Panel; Complete Time: 18:34 EDMS 09/22 18:34 Interpretation: Normal except: NA 133; K 3.4. 09/22 17:31 Order name: CBC with Automated Diff; Complete Time: 18:34 EDAL 09/22 17:31 Order name: Liver (Hepatic) Function; Complete Time: 18:34 EDMS 09/22 17:31 Order name: Magnesium; Complete Time: 18:34 EDMS 09/22 17:31 Order name: NT PRO-BNP; Complete Time: 18:34 EDAL 09/22 17:31 Order name: Protime (+INR); Complete Time: 18:34 EDAL 09/22 17:31 Order name: D-Dimer; Complete Time: 18:34 EDMS 09/22 18:10 Order name: CT Chest For PE Angio; Complete Time: 19:25 cp 09/22 18:28 Order name: Procalcitonin; Complete Time: 19:25 EDMS 09/22 18:51 Order name: COVID-19/FLU A+B; Complete Time: 19:25 EDMS 09/22 21:18 Order name: Lactate Sepsis 2 HR Follow-up EDAL 09/22 17:30 Order name: EKG; Complete Time: 17:31 cp 09/22 17:30 Order name: Cardiac monitoring; Complete Time: 17:48 cp 09/22 17:30 Order name: EKG - Nurse/Tech; Complete Time: 17:48 cp 09/22 17:30 Order name: IV Saline Lock; Complete Time: 17:58 cp 09/22 17:30 Order name: Labs collected and sent; Complete Time: 17:58 cp 09/22 17:30 Order name: O2 Per Protocol; Complete Time: 17:58 cp 09/22 17:30 Order name: O2 Sat Monitoring; Complete Time: 17:59 cp EC:43 Rate is 107 beats/min. Rhythm is regular. OR interval is normal. QRS interval is cp normal. QT interval is normal. T waves are Inverted in lead aVR. Interpreted by me. Reviewed by me. Administered Medications: Discontinued: NS 0.9% 500 ml IV at 125 ml/hr continuous 17:58 Drug: Zofran (Ondansetron) 4 mg Route: IVP; Site: left antecubital; tr6 22:22 Follow up: Response: No adverse reaction jm 17:58 Drug: NS 0.9% 500 ml Route: IV; Rate: 125 ml/hr; Site: left antecubital; tr6 17:58 Drug: SOLU-Medrol (methylPrednisoLONE) 125 mg Route: IVP; Site: left antecubital; tr6 22:22 Follow up: Response: No adverse reaction jm8 18:36 Not Given (Physician Discretion): NS 0.9% 500 ml IV at bolus once cp 18:58 Drug: Tessalon Perle (benzonatate) 200 mg Route: PO; ak2 22:21 Follow up: Response: No adverse reaction jm8 18:59 Drug: NS 0.9% 1000 ml Route: IV; Rate: 1 bolus; Site: left antecubital; ak2 19:41 Follow up: IV Status: Completed infusion ad5 19:29 CANCELLED (Physician Discretion): LevaQUIN (levofloxacin) 750 mg 150 ml IVPB once over cp 90 mins 19:40 Drug: Potassium Effervescent Tablet 25 mEq Route: PO; ad5 20:37 Follow up: Response: No adverse reaction ad5 19:40 Drug: Tussionex Pennkinetic ER (chlorpheniramine-hydrocodone) 5 ml Route: PO; ad5 20:37 Follow up: Response: No adverse reaction ad5 Disposition: 09/22/20 20:07 Hospitalization ordered by Max Bella for Observation. Preliminary diagnosis is Pneumonia due to other specified infectious organisms. - Bed requested for Intensive Care Unit. - Status is Observation. jm8 - Condition is Stable. - Problem is an ongoing problem. - Symptoms have improved. Addendum: 09/28/2020 08:00 Co-signature as Attending Physician, Michoacano Crowe MD. r n Signatures: Dispatcher [employer] EDMS Chikis Stephens RN RN iw Michoacano Crowe MD MD rn Page, Corey, SAE PA cp Chanelle Caro RN RN ca1 Erwin Munson RN RN jm8 Katelynn White RN RN tr6 Harmeet Ruiz ad5 Edson Stevens ak2 Corrections: (The following items were deleted from the chart) 09/22 17:56 17:31 Influenza Screen (A \\T\\ B)+BA.LAB.BRZ ordered. EDMS EDMS 17:56 17:31 D-DIMER+COAG.LAB.BRZ ordered. EDMS EDMS 19:29 19:27 LevaQUIN (levofloxacin) 750 mg 150 ml IVPB once over 90 mins ordered. cp cp 20:30 20:07 Hospitalization Ordered by Max Bella DO for Observation. Preliminary iw diagnosis is Pneumonia due to other specified infectious organisms. Bed requested for Telemetry/MedSurg (observation). Status is Observation. Condition is Stable. Problem is an ongoing problem. Symptoms have improved. cp 22:21 20:30 09/22/2020 20:07 Hospitalization Ordered by Max Bella DO for Observation. jm8 Preliminary diagnosis is Pneumonia due to other specified infectious organisms. Bed requested for Intensive Care Unit. Status is Observation. Condition is Stable. Problem is an ongoing problem. Symptoms have improved. iw
--- NOTE | 2020-09-22 20:08 | ER ---
Nurse's Notes [facility] Name: Live Childs Age: 65 yrs Sex: Male : 1955 Arrival Date: 09/22/2020 Time: 17:11 Bed 5 Private MD: Diagnosis: Pneumonia due to other specified infectious organisms Presentation: 09/22 17:19 Chief complaint: Patient states: Cough and SOB x 3 weeks. Covid+ 09/16/2020. Cough and ca1 SOB worse, N/V. Coronavirus screen: Client denies travel out of the [place] in the last 14 days. Client reports previous positive COVID test result. Date of collection: September 16, 2020. Ebola Screen: Patient negative for fever greater than or equal to 101.5 degrees Fahrenheit, and additional compatible Ebola Virus Disease symptoms Patient denies exposure to infectious person. Patient denies travel to an Ebola-affected area in the 21 days before illness onset. No symptoms or risks identified at this time. Initial Sepsis Screen: Does the patient meet any 2 criteria? No. Patient's initial sepsis screen is negative. Does the patient have a suspected source of infection? No. Patient's initial sepsis screen is negative. Risk Assessment: Do you want to hurt yourself or someone else? Patient reports no desire to harm self or others. Onset of symptoms was September 22, 2020. 17:19 Method Of Arrival: Wheelchair ca1 17:19 Acuity: ALFA 3 ca1 Triage Assessment: 17:28 General: Appears in no apparent distress. Behavior is calm, cooperative. Pain: Denies ak2 pain. Respiratory: Reports shortness of breath cough that is non-productive, Onset: The symptoms/episode began/occurred gradually, the patient has moderate shortness of breath. Historical: - Allergies: 17:21 No Known Allergies; ca1 - Home Meds: 17:21 None [Active]; ca1 - PMHx: 17:21 None; ca1 - PSHx: 17:21 back surgery; neck surgery; eye surgery; hip replacement; Knee surgery; ca1 - Immunization history:: Client reports having NOT received the Covid vaccine. Pneumococcal vaccine is not up to date, Flu vaccine is not up to date. - Social history:: Smoking status: Patient denies any tobacco usage or history of. Screenin:28 Abuse screen: Denies threats or abuse. Denies injuries from another. Nutritional ak2 screening: No deficits noted. Tuberculosis screening: No symptoms or risk factors identified. Fall Risk None identified. Assessment: 19:41 General: Appears uncomfortable, ill, Behavior is calm, cooperative, appropriate for ad5 age. Pain: Complains of pain in chest, generalized body aches. Neuro: Level of Consciousness is awake, alert, obeys commands, Oriented to person, place, time, situation, Appropriate for age Director Skills are equal bilaterally Moves all extremities. Speech is normal, Facial symmetry appears normal, Pupils are PERRLA. Cardiovascular: Reports chest pain, nausea, shortness of breath, Heart tones S1 S2 present Capillary refill < 3 seconds JVD is absent Patient's skin is warm and dry. Pulses are all present. Rhythm is regular. Respiratory: Reports shortness of breath at rest on exertion cough that is productive, pain with cough pain with respiration Airway is patent Trachea midline Respiratory effort is even, unlabored, Respiratory pattern is regular, symmetrical, Breath sounds are clear bilaterally. Respiratory: Reports. GI: Abdomen is flat, non-distended, Bowel sounds present X 4 quads. Reports nausea. : No deficits noted. EENT: No deficits noted. Derm: No deficits noted. Skin is pink, warm \T\ dry. Musculoskeletal: No deficits noted. 21:09 Reassessment: Patient appears in no apparent distress at this time. No changes from ad5 previously documented assessment. Patient and/or family updated on plan of care and expected duration. Pain level reassessed. Patient is alert, oriented x 3, equal unlabored respirations, skin warm/dry/pink. Vital Signs: 17:18 BP 139 / 95; Pulse 109; Resp 20; Pulse Ox 97% on R/A; Weight 83.91 kg; Height 6 ft. tr6 (182.88 cm); 17:19 Temp 100.2(O); ca1 19:03 BP 134 / 75; Pulse 98; Resp 18; Pulse Ox 99% ; tr6 19:44 BP 129 / 74; Pulse 101; Resp 20 S; Pulse Ox 96% on 2 lpm NC; ad5 21:03 BP 102 / 75; Pulse 96; Resp 16; Pulse Ox 95% on NC; jm8 22:22 BP 114 / 70; Pulse 93; Resp 16; Pulse Ox 95% ; jm8 17:18 Body Mass Index 25.09 (83.91 kg, 182.88 cm) tr6 ED Course: 17:11 Patient arrived in ED. mr 17:13 Arm band placed on Patient placed in an exam room, on a stretcher. ll1 17:20 Greg Hazel PA is PHCP. cp 17:20 Michoacano Crowe MD is Attending Physician. cp 17:20 Triage completed. ca1 17:27 Edson Stevens is Primary Nurse. ak2 17:28 Patient has correct armband on for positive identification. Bed in low position. Call ak2 light in reach. 17:28 No provider procedures requiring assistance completed. Inserted saline lock: 20 gauge ak2 in left antecubital area, using aseptic technique. 17:44 XRAY Chest (1 view) In Process Unspecified. EDMS 18:08 Notified Nurse Practitioner and/or Physician Metal Fabricator of a critical lab result(s), D ll1 dimer 903. 18:40 CT Chest For PE Angio In Process Unspecified. EDMS 18:50 Notified Nurse Practitioner and/or Physician Metal Fabricator of Notified Charge Nurse of ll1 covid positive. 20:06 Max Bella DO is Hospitalizing Provider. cp 20:37 Harmeet Ruiz is Primary Nurse. ad5 22:21 Patient admitted, IV remains in place. jm8 Administered Medications: Discontinued: NS 0.9% 500 ml IV at 125 ml/hr continuous 17:58 Drug: Zofran (Ondansetron) 4 mg Route: IVP; Site: left antecubital; tr6 22:22 Follow up: Response: No adverse reaction jm8 17:58 Drug: NS 0.9% 500 ml Route: IV; Rate: 125 ml/hr; Site: left antecubital; tr6 17:58 Drug: SOLU-Medrol (methylPrednisoLONE) 125 mg Route: IVP; Site: left antecubital; tr6 22:22 Follow up: Response: No adverse reaction jm8 18:36 Not Given (Physician Discretion): NS 0.9% 500 ml IV at bolus once cp 18:58 Drug: Tessalon Perle (benzonatate) 200 mg Route: PO; ak2 22:21 Follow up: Response: No adverse reaction [place] 18:59 Drug: NS 0.9% 1000 ml Route: IV; Rate: 1 bolus; Site: left antecubital; ak2 19:41 Follow up: IV Status: Completed infusion ad5 19:29 CANCELLED (Physician Discretion): LevaQUIN (levofloxacin) 750 mg 150 ml IVPB once over cp 90 mins 19:40 Drug: Potassium Effervescent Tablet 25 mEq Route: PO; ad5 20:37 Follow up: Response: No adverse reaction ad5 19:40 Drug: Tussionex Pennkinetic ER (chlorpheniramine-hydrocodone) 5 ml Route: PO; ad5 20:37 Follow up: Response: No adverse reaction ad5 Outcome: 20:07 Decision to Hospitalize by Provider. cp 22:20 Admitted to ICU accompanied by nurse, via wheelchair, with oxygen, with chart, Report [email or web address] called to Rocio LEBLANC 22:20 Condition: stable 22:20 Instructed on the need for admit. 22:21 Patient left the ED. calista Signatures: Dispatcher [employer] EDNM Chris Hyacinth mr Greg Hazel PA PA cp Chanelle Caro RN RN ca1 Tony Kay RN RN ll1 Erwin Munson RN RN saeed8 Katelynn White RN RN tr6 Harmeet Ruiz ad5 Edson Stevens ak2
--- NOTE | 2020-09-22 20:51 | P.HP ---
Certification for Inpatient Patient admitted to: Observation With expected LOS: <2 Midnights Patient will require the following post-hospital care: None Practitioner: I am a practitioner with admitting privileges, knowledge of patient current condition, hospital course, and medical plan of care. Services: Services provided to patient in accordance with Admission requirements found in Title 42 Section 412.3 of the Code of Federal Regulations Patient History Date of Service: 09/22/20 Reason for admission: COVID-19 pneumonia History of Present Illness: 65 year old otherwise healthy male presents emergency department for shortness of breath. Patient reports ongoing shortness of breath over the course of the last 1 month or so. Patient reports testing positive for pineda virus approximately 10 days ago with increasing shortness of breath and cough since then. Evaluation in the emergency department with labs significant for sodium 133 potassium 3.4, lactic acid 2.7 C-reactive protein 21.1 pro calcitonin less than 0.05 it was about 7.4. D-dimer 903 CT PE protocol and chest x-ray demonstrated mild to moderate COVID pattern. Patient with persistent ongoing cough which leads to occasional vomiting reports feeling much worse over the course of the last few days. Patient not profoundly hypoxic with saturations are around 90-95% and he is feeling very ill, ED prior wishes to admit under observation. - Past Medical/Surgical History -: none -: Back surgery -: Neck surgery -: Left hip surgery Psychosocial/ Personal History: Patient is retired, lives alone - Family History Mother -: Cancer Father -: Other (see notes) (Aneurysm) - Social History Smoking Status: Never smoker Alcohol use: No CD- Drugs: No Caffeine use: Yes Place of Residence: Home Review of Systems 10-point ROS is otherwise unremarkable General: Weakness, Malaise Respiratory: Cough, Dry, Shortness of Breath Physical Examination - Physical Exam General: Alert, In no apparent distress, Oriented x3 HEENT: Atraumatic, PERRLA, Mucous membr. moist/pink Neck: Supple, 2+ carotid pulse no bruit, No LAD Respiratory: Clear to auscultation bilaterally, Diminished Cardiovascular: Regular rate/rhythm, Normal S1 S2 Gastrointestinal: Normal bowel sounds, No tenderness Musculoskeletal: No tenderness Integumentary: No rashes Neurological: Normal speech, Normal strength at 5/5 x4 extr, Normal tone, Normal affect - Studies Laboratory Data (last 24 hrs) 09/22/20 17:30: PT 12.9 H, INR 1.12 09/22/20 17:30: WBC 7.40 D, Hgb 15.7, Hct 45.1, Plt Count 196 09/22/20 17:30: Sodium 133 L, Potassium 3.4 L, BUN 11, Creatinine 0.83, Glucose 90, Magnesium 1.9, Total Bilirubin 0.6, AST 26, ALT 26, Alkaline Phosphatase 77 Assessment and Plan - Plan Assessment Dyspnea, persistent cough secondary to COVID-19 pneumonia Plan Dyspnea, persistent cough secondary to COVID-19 pneumonia: Continue with IV steroids, oral supplements, daily room air saturations on room air saturations for home oxygen, pulmonology has been consulted. Will provide medications for cough p.r.n. with the patient reports these medications have not been helping at home. Will trend CRP, ferritin levels. Appreciate further input from pulmonology. Possible discharge as early as tomorrow if patient remains stable overnight. DVT prophylaxis Lovenox 40 mg a subcutaneous once daily. Discharge Plan: Home Plan to discharge in: 24 Hours - Advance Directives Does patient have a Living Will: No Does patient have a Durable POA for Healthcare: No - Code Status/Comfort Care Code Status Assessed: Yes Critical Care: No Time Spent Managing Pts Care (In Minutes): 55
[2020-09-22] MEDS ORDERED: MELATONIN 5 MG TABLET PO PRN (22:08)
[2020-09-22] MEDS ORDERED: GUAIFENESIN/DM 5 ML UCUP PO PRN (22:08)
[2020-09-22] MEDS ORDERED: BENZONATATE 100 MG CAP PO PRN (22:08)
[2020-09-22] MEDS ORDERED: ONDANSETRON 4 MG/2 ML VIAL IV PRN (22:08)
[2020-09-22] MEDS ORDERED: ACETAMINOPHEN 500 MG TAB PO PRN (22:08)
[2020-09-22] MEDS: ASCORBIC ACID 500 MG TABLET PO SCH (22:43)
[2020-09-23 05:24] LABS: Absolute Lymphocytes (CBC) 0.4 K/uL (0.7-4.9); Basophils % 0.2 % (0-1.3); Hematocrit 42.6 % (39.6-49.0); Lymphocytes % 13.4 % (15.3-44.8); MPV 8.2 fL (7.6-11.3); RBC Red Blood Cell Count 4.61 M/uL (4.33-5.43)
[2020-09-23 06:04] LABS: ALT/SGPT 24 U/L (12-78); AST/SGOT 19 U/L (15-37); Albumin 2.9 g/dL (3.4-5.0); Alkaline Phosphatase 70 U/L (45-117); BUN Blood Urea Nitrogen 10 mg/dL (7-18); Bicarbonate 27 mmol/L (21-32); Bilirubin Total 0.5 mg/dL (0.2-1.0); Ferritin 283.5 ng/mL (26-388); Glucose Level 135 mg/dL (74-106); Magnesium 2.2 mg/dL (1.8-2.4); Protein, Total 6.5 g/dL (6.4-8.2); Sodium Level 134 mmol/L (136-145)
[2020-09-23] MEDS: BENZONATATE 100 MG CAP PO PRN ×3 (07:28→19:48)
[2020-09-23] MEDS: ASPIRIN EC 81 MG TAB PO SCH (07:28)
[2020-09-23] MEDS: VITAMIN D 1000 UNIT TAB PO SCH (07:28)
[2020-09-23] MEDS: ZINC SULFATE 220 MG CAP PO SCH (07:28)
[2020-09-23] MEDS: THIAMINE HCL 100 MG TABLET PO SCH (07:29)
[2020-09-23] MEDS: ENOXAPARIN 40 MG/0.4 ML SQ SCH (07:29)
[2020-09-23] MEDS: ASCORBIC ACID 500 MG TABLET PO SCH ×4 (07:29→19:48)
[2020-09-23] MEDS: METHYLPREDNISOLONE 40 MG INJ IV SCH ×2 (07:29→19:44)
[2020-09-23] MEDS ORDERED: IVERMECTIN 3 MG TABLET PO SCH (09:00)
--- NOTE | 2020-09-23 11:58 | EKG ---
Test Date: 2020-09-22 Test Time: 17:22:51 Bulk Delivery Driver: . MEASUREMENT RESULTS: Intervals: Rate: 107 WI: 172 QRSD: 96 QT: 340 QTc: 453 [place]: P: 63 WI: 172 QRS: 26 T: 50 INTERPRETIVE STATEMENTS: Sinus tachycardia Possible Left atrial enlargement Incomplete right bundle branch block Borderline ECG Compared to ECG 09/20/2020 19:38:49 Incomplete right bundle-branch block now present Sinus rhythm no longer present Electronically Signed On 09-23-20 11:56:58 CDT by Rigoberto Green
--- NOTE | 2020-09-23 12:28 | P.CNS ---
Date of Consult: 09/23/20 Reason for Consult: Respiratory failure Chief Complaint: COVID-19 pneumonia History of Present Illness: Patient is 65 years of age admitted with shortness of breath for the past month as been tested positive for pineda virus came in for the cough as found to be hypoxic he is doing relatively well evidence of pulmonary embolism bilateral patchy infiltrate consistent with a pineda virus infection Allergies No Known Allergies Allergy (Verified 09/22/20 22:08) Home Medications: NK [No Home Meds] 09/22/20 - Past Medical/Surgical History Diabetic: No -: none -: Back surgery -: Neck surgery -: Left hip surgery -: eye sx -: knee sx Psychosocial/ Personal History: Patient is retired, lives alone - Family History Mother Medical History: Cancer Father Medical History: Other (see notes) Notes: Brain Anuerysm - Social History Alcohol use: No CD- Drugs: No Caffeine use: Yes Place of Residence: Home Review of Systems General: Weakness Respiratory: Cough, Shortness of Breath Physical Examination Temp Pulse Resp BP Pulse Ox 97.7 F 85 19 120/71 95 09/23/20 04:00 09/23/20 04:00 09/23/20 04:00 09/23/20 04:00 09/23/20 00:00 Laboratory Data (last 24 hrs) 09/22/20 17:30: PT 12.9 H, INR 1.12 09/22/20 17:30: WBC 7.40 D, Hgb 15.7, Hct 45.1, Plt Count 196 09/22/20 17:30: Sodium 133 L, Potassium 3.4 L, BUN 11, Creatinine 0.83, Glucose 90, Magnesium 1.9, Total Bilirubin 0.6, AST 26, ALT 26, Alkaline Phosphatase 77 - Problems (1) COVID-19 Current Visit: Yes Status: Acute Plan: Patient is 65 years of age admitted with pineda virus pneumonia oxygenation satisfactory labs all reviewed patient is stable for discharge may require home O2 on a prednisone 20 mg twice a day low-dose aspirin LT vitamin supplementation
--- NOTE | 2020-09-23 12:51 | P.PN ---
Subjective Date of Service: 09/23/20 Chief Complaint: COVID-19 pneumonia Subjective: Other (was Room air now on oxygen.) Physical Examination - Vital Signs Temperature: 97.7 F Blood Pressure: 120/71 Pulse: 85 Respirations: 19 Pulse Ox (%): 95 - Studies Laboratory Data (last 24 hrs) 09/22/20 17:30: PT 12.9 H, INR 1.12 09/22/20 17:30: WBC 7.40 D, Hgb 15.7, Hct 45.1, Plt Count 196 09/22/20 17:30: Sodium 133 L, Potassium 3.4 L, BUN 11, Creatinine 0.83, Glucose 90, Magnesium 1.9, Total Bilirubin 0.6, AST 26, ALT 26, Alkaline Phosphatase 77 Assessment & Plan Discharge Plan: Home Plan to discharge in: 24 Hours Physician Review Additional Text: CT scan: FINDINGS: No pulmonary emboli are identified. The aorta as imaged shows no acute or suspicious finding. No pericardial thickening or effusion. Peripheral ground-glass opacities are present in the mid and lower lung diggs. These opacities match the chest film finding and are consistent with a bilateral mild to moderate severity COVID-19 pneumonia. No pleural effusion or pleural thickening. No mediastinal or hilar suspicious masses. No chest wall masses or abnormal axillary lymphadenopathy. IMPRESSION: No pulmonary emboli identified. Mild to moderate severity bilateral COVID-19 pneumonia. Physical Exam: GENERAL: Patient with increased oxygen requirement. Was on room air now requiring oxygen. Still with increased cough and congestion. VITAL SIGNS: [Reviewed] HEENT: [Head is normocephalic and atraumatic. Extraocular muscles are intact. Pupils are equal, round, and reactive to light and accommodation. Nares appeared normal. Mouth is well hydrated and without lesions. Mucous membranes are moist. ] NECK: [Supple. No carotid bruits. No lymphadenopathy or thyromegaly.] LUNGS: Some crackles to the bases. HEART: [Regular rate and rhythm, no appreciable gallops, rubs, murmurs or extra heart sounds] ABDOMEN: [Soft, nontender, and nondistended. Positive bowel sounds. No hepatosplenomegaly was noted.] EXTREMITIES: [Without any cyanosis, clubbing, rash, lesions or peripheral edema.] NEUROLOGIC: [The patient is oriented to person, place and time. Strength and sensation are grossly intact. Face is symmetric.] SKIN: [Normal color, turgor and temperature. No ulcerations or rashes noted.] Impression: Dyspnea, persistent cough and hypoxia secondary to bilateral COVID-19 pneumonia Plan Dyspnea, persistent cough and hypoxia secondary to bilateral COVID-19 pneumonia: Patient now requiring oxygen. Was on room air but needs home oxygen to be arranged. Still with increased cough, congestion. He was ambulated with some notable shortness of breath and tachypnea. We will keep the patient at least for another 24 hours to monitor closely. Continue IV steroids, supplements. Continue DVT prophylaxis. Recommend proning, recommend incentive spirometer. C ontinue to trend CRP and ferritin. Anticipate discharge tomorrow with home oxygen. Code Status: [Full Code] DVT prophylaxis: [Lovenox] Advanced Care Planning-30 minutes: Plan of care for the patient's discharge was discussed in detail with the [patient and family]. Time Spent Managing Pts Care (In Minutes): 55
[2020-09-24 03:39] LABS: Urine Appearance CLEAR (Clear); Urine Bilirubin NEGATIVE (Negative); Urine Blood NEGATIVE (Negative); Urine Color YELLOW (Yellow); Urine Glucose NEGATIVE (Negative); Urine Protein NEGATIVE (Negative); Urine Specific Gravity 1.015 (1.005-1.030); Urine Urobilinogen 0.2 mg/dL (0.2-1.0)
[2020-09-24 03:47] LABS: Urine Microscopic Reflex NO UMIC
[2020-09-24 05:23] VITALS: BMI 23.0
[2020-09-24 05:45] LABS: Absolute Lymphocytes (CBC) 0.6 K/uL (0.7-4.9); Hematocrit 41.5 % (39.6-49.0); Lymphocytes % 8.3 % (15.3-44.8); MPV 8.4 fL (7.6-11.3); RBC Red Blood Cell Count 4.48 M/uL (4.33-5.43)
[2020-09-24 05:46] LABS: ALT/SGPT 22 U/L (12-78); AST/SGOT 19 U/L (15-37); Albumin 2.9 g/dL (3.4-5.0); Alkaline Phosphatase 63 U/L (45-117); BUN Blood Urea Nitrogen 18 mg/dL (7-18); Bicarbonate 28 mmol/L (21-32); Bilirubin Total 0.6 mg/dL (0.2-1.0); Ferritin 313.9 ng/mL (26-388); Glucose Level 147 mg/dL (74-106); Magnesium 2.3 mg/dL (1.8-2.4); Potassium 4.4 mmol/L (3.5-5.1); Protein, Total 6.2 g/dL (6.4-8.2); Sodium Level 135 mmol/L (136-145)
[2020-09-24 08:05] LABS: Blood Morphology Comment NOT SEEN (NOT SEEN); Platelet Estimate ADEQ
--- NOTE | 2020-09-24 08:25 | P.DS ---
Admission Date: 09/23/20 Discharge Date: 09/24/20 Primary Care Provider: none Disposition: ROUTINE DISCHARGE Discharge Condition: GOOD Reason for Admission: COVID-19 pneumonia Consultations: Pulmonary-Dr. Cespedes Procedures: COVID: Positive CT scan: FINDINGS: No pulmonary emboli are identified. The aorta as imaged shows no acute or suspicious finding. No pericardial thickening or effusion. Peripheral ground-glass opacities are present in the mid and lower lung diggs. These opacities match the chest film finding and are consistent with a bilateral mild to moderate severity COVID-19 pneumonia. No pleural effusion or pleural thickening. No mediastinal or hilar suspicious masses. No chest wall masses or abnormal axillary lymphadenopathy. IMPRESSION: No pulmonary emboli identified. Mild to moderate severity bilateral COVID-19 pneumonia. Medical problem list: Dyspnea, persistent cough and hypoxia secondary to bilateral COVID-19 pneumonia Brief History of Present Illness: 65 year old otherwise healthy male presents emergency department for shortness of breath. Patient reports ongoing shortness of breath over the course of the last 1 month or so. Patient reports testing positive for pineda virus approximately 10 days ago with increasing shortness of breath and cough since then. Evaluation in the emergency department with labs significant for sodium 133 potassium 3.4, lactic acid 2.7 C-reactive protein 21.1 pro calcitonin less than 0.05 it was about 7.4. D-dimer 903 CT PE protocol and chest x-ray demonstrated mild to moderate COVID pattern. Patient with persistent ongoing cough which leads to occasional vomiting reports feeling much worse over the course of the last few days. Patient was admitted for further evaluation and treatment. Hospital Course: Patient presented with dyspnea, persistent cough and hypoxia secondary to bilateral COVID-19 pneumonia. Patient had been diagnosed over a week ago. Patient had come to the ER previously for similar issues. Patient required hospitalization to further evaluate. CT scan showed no pulmonary embolism. Moderate COVID-19 pneumonia identified. Patient was seen and evaluated by pulmonology. Patient received IV steroids, cough medication and supplementation. Patient has done well. His condition has improved. At discharge patient still requires oxygen. Patient will continue with home oxygen to maintain sats above 93%. Currently on 2 L per nasal cannula. Arrangements for oxygen will be arranged. At discharge the patient will continue with prednisone 20 mg 1 pill twice daily for 7 days then 1 pill once daily for 7 days. The patient will also continue with aspirin 81 mg daily, Tessalon Perles 200 mg 3 times a day as needed for cough and albuterol 2 puffs 3 times a day as needed for shortness of breath. The patient will also continue with supplementation including vitamin C 500 mg 3 times a day, thiamine 2 mg daily, zinc 220 mg daily, and vitamin D 2000 units daily. Patient will continue with active proning at home, incentive spirometer. Patient will continue with CDC guidelines on COVID-19 isolation, handwashing, face good mask use, and social distancing. Recommend for the patient to follow-up with pulmonology in 1 week to follow-up hospitalization and continue his care. Further direction on weaning off oxygen can come from his PCP or pulmonology. The patient plans to establish care locally with a PCP to also follow-up this hospitalization. Patient may return to work once cleared by pulmonology. Patient may need to limit his activities at home. Vital Signs/Physical Exam: Temp Pulse Resp BP Pulse Ox 98.5 F 67 17 101/64 94 09/24/20 04:00 09/24/20 04:00 09/24/20 04:00 09/24/20 04:00 09/24/20 04:00 General: Alert, In no apparent distress, Oriented x3, Cooperative HEENT: Atraumatic Neck: Supple Respiratory: Clear to auscultation bilaterally, Other (Currently on 2 L per nasal cannula) Cardiovascular: Normal pulses, Regular rate/rhythm Gastrointestinal: Normal bowel sounds, No tenderness, No masses, No rebound, No guarding Musculoskeletal: No tenderness, No warmth Neurological: Normal speech, Normal strength at 5/5 x4 extr, Normal tone, Normal affect Laboratory Data at Discharge: WBC 6.70 K/uL (4.3-10.9) D 09/24/20 05:03 Hgb 14.4 g/dL (13.6-17.9) 09/24/20 05:03 Hct 41.5 % (39.6-49.0) 09/24/20 05:03 Plt Count 217 K/uL (152-406) 09/24/20 05:03 PT 12.9 SECONDS (9.5-12.5) H 09/22/20 17:30 INR 1.12 09/22/20 17:30 Sodium 135 mmol/L (136-145) L 09/24/20 05:03 Potassium 4.4 mmol/L (3.5-5.1) 09/24/20 05:03 BUN 18 mg/dL (7-18) 09/24/20 05:03 Creatinine 0.69 mg/dL (0.55-1.3) 09/24/20 05:03 Glucose 147 mg/dL (74-106) H 09/24/20 05:03 Magnesium 2.3 mg/dL (1.8-2.4) 09/24/20 05:03 Total Bilirubin 0.6 mg/dL (0.2-1.0) 09/24/20 05:03 AST 19 U/L (15-37) 09/24/20 05:03 ALT 22 U/L (12-78) 09/24/20 05:03 Alkaline Phosphatase 63 U/L (45-117) 09/24/20 05:03 Home Medications: Albuterol Inhaler [Ventolin Inhaler*] 2 puff IH Q6H PRN #1 hfa.aer.ad 09/24/20 Ascorbic Acid [Vitamin C*] 500 mg PO TID #90 tablet 09/24/20 Aspirin [Aspirin EC 81 MG] 81 mg PO DAILY #30 tablet. 09/24/20 Benzonatate [Tessalon Perle] 200 mg PO TID PRN #30 cap 09/24/20 Cholecalciferol (Vitamin D3) [Vitamin D 1000 Iu Tab*] 2,000 unit PO DAILY #60 tab 09/24/20 Thiamine HCl [Vitamin B-1*] 200 mg PO DAILY #60 tablet 09/24/20 Zinc Sulfate [Zinc Sulfate*] 220 mg PO DAILY #30 cap 09/24/20 predniSONE [Prednisone*] 20 mg PO SEECOM #21 tab 09/24/20 New Medications: Aspirin [Aspirin EC 81 MG] 81 mg PO DAILY #30 tablet. predniSONE [Prednisone*] 20 mg PO SEECOM #21 tab Benzonatate [Tessalon Perle] 200 mg PO TID PRN #30 cap PRN Reason: Cough Albuterol Inhaler [Ventolin Inhaler*] 2 puff IH Q6H PRN #1 hfa.aer.ad PRN Reason: Shortness Of Breath Thiamine HCl [Vitamin B-1*] 200 mg PO DAILY #60 tablet Ascorbic Acid [Vitamin C*] 500 mg PO TID #90 tablet Cholecalciferol (Vitamin D3) [Vitamin D 1000 Iu Tab*] 2,000 unit PO DAILY #60 tab Zinc Sulfate [Zinc Sulfate*] 220 mg PO DAILY #30 cap Physician Discharge Instructions: Patient presented with dyspnea, persistent cough and hypoxia secondary to bilateral COVID-19 pneumonia. Patient had been diagnosed over a week ago. Patient had come to the ER previously for similar issues. Patient required hospitalization to further evaluate. CT scan showed no pulmonary embolism. Moderate COVID-19 pneumonia identified. Patient was seen and evaluated by pulmonology. Patient received IV steroids, cough medication and supplementation. Patient has done well. His condition has improved. At discharge patient still requires oxygen. Patient will continue with home oxygen to maintain sats above 93%. Currently on 2 L per nasal cannula. Arrangements for oxygen will be arranged. At discharge the patient will continue with prednisone 20 mg 1 pill twice daily for 7 days then 1 pill once daily for 7 days. The patient will also continue with aspirin 81 mg daily, Tessalon Perles 200 mg 3 times a day as needed for cough and albuterol 2 puffs 3 times a day as needed for shortness of breath. The patient will also continue with supplementation including vitamin C 500 mg 3 times a day, thiamine 2 mg daily, zinc 220 mg daily, and vitamin D 2000 units daily. Patient will continue with active proning at home, incentive spirometer. Patient will continue with CDC guidelines on COVID-19 isolation, handwashing, face good mask use, and social distancing. Recommend for the patient to follow-up with pulmonology in 1 week to follow-up hospitalization and continue his care. Further direction on weaning off oxygen can come from his PCP or pulmonology. The patient plans to establish care locally with a PCP to also follow-up this hospitalization. Patient may return to work once cleared by pulmonology. Patient may need to limit his activities at home. Diet: Regular Activity: Ad rhea Followup: NONE,NONE [Primary Care Provider] - Time spent managing pt's care (in minutes): 55
[2020-09-24] MEDS: ENOXAPARIN 40 MG/0.4 ML SQ SCH (08:33)
[2020-09-24] MEDS: METHYLPREDNISOLONE 40 MG INJ IV SCH (08:33)
[2020-09-24] MEDS: VITAMIN D 1000 UNIT TAB PO SCH (08:34)
[2020-09-24] MEDS: ZINC SULFATE 220 MG CAP PO SCH (08:34)
[2020-09-24] MEDS: ASPIRIN EC 81 MG TAB PO SCH (08:34)
[2020-09-24] MEDS: THIAMINE HCL 100 MG TABLET PO SCH (08:34)
[2020-09-24] MEDS: ASCORBIC ACID 500 MG TABLET PO SCH (08:34)
[2020-09-24 11:35] VITALS: O2SAT 93
[2020-09-24 12:41] VITALS: BP 108/49; TEMP 97.3
== END 2020-09-24 11:20 | disposition home or self-care (01) | DRG 177 ==
LOC: ER 17:09 → ERHOLD 20:34 → 3RD-ICU 22:04 → OBSVTOIN 09-23 21:50
PROVIDERS: ADMIT Family Medicine; ATTEND Family Medicine
DX: U07.1 COVID-19 (principal); J12.82 Pneumonia due to coronavirus disease 2019; E87.1 Hypo-osmolality and hyponatremia; R09.02 Hypoxemia; Z79.82 Long term (current) use of aspirin; Z79.52 Long term (current) use of systemic steroids; Z79.899 Other long term (current) drug therapy; Z60.2 Problems related to living alone; Z96.649 Presence of unspecified artificial hip joint
CPT/HCPCS: 0240U; 36415; 71045; 71275; 80048; 80053; 80076; 81003; 82728; 83605; 83735; 83880; 84145; 84484; 85025; 85379; 85610; 86140; 87040; 93005; 96361; 96365; 96374; 96375; 99284; 99285; J0696; J1650; J2405; J2920; J2930; J7030; J7040; Q9967

== ENCOUNTER 2023-06-06 05:30 | Observation (INO) | payer OTHER ==
--- NOTE | 2023-06-02 15:05 | RAD REPORT ---
EXAM DESCRIPTION: Collin Curtis (2 Views)06/02/2023 2:53 pm CLINICAL HISTORY: Preop for knee surgery COMPARISON: 2020 FINDINGS: Areas scarring within the left lung base. The lungs appear clear of acute infiltrate. The heart is mildly enlarged IMPRESSION: No acute abnormalities displayed
[2023-06-02 15:10] LABS: Absolute Lymphocytes (CBC) 1.3 K/uL (0.7-4.9); Hematocrit 40.9 % (39.6-49.0); Lymphocytes % 20.3 % (15.3-44.8); MCV 97.8 fL (80-100); MPV 7.7 fL (7.6-11.3); Platelets 236 thou/uL (152-406); RBC Red Blood Cell Count 4.19 M/uL (4.33-5.43)
[2023-06-02 15:14] LABS: Specific Gravity 1.025 (1.005-1.030); Urine Bacteria None Seen /HPF (<20); Urine Bilirubin NEGATIVE (Negative); Urine Blood Trace (Negative); Urine Clarity Clear (Clear); Urine Color Light-Yellow (Yellow); Urine Glucose NEGATIVE (Negative); Urine Mucus Slight /HPF (None Seen); Urine Protein NEGATIVE (Negative); Urine RBC <5 /HPF (None Seen); Urine Urobilinogen Normal (Normal)
[2023-06-02 15:23] LABS: Protime INR 1.07
[2023-06-02 15:27] LABS: Albumin 3.3 g/dL (3.4-5.0); Bilirubin Total 0.5 mg/dL (0.2-1.0); Potassium 4.1 mEq/L (3.5-5.1); Protein, Total 6.7 g/dL (6.4-8.2)
--- NOTE | 2023-06-05 15:08 | EKG ---
Test Date: 2023-06-02 Test Time: 15:39:36 Election Judge: LUIS ALBERTO MEASUREMENT RESULTS: Intervals: Rate: 82 IL: 192 QRSD: 94 QT: 370 QTc: 432 [place]: P: 59 IL: 192 QRS: -1 T: 57 INTERPRETIVE STATEMENTS: Normal sinus rhythm Normal ECG Compared to ECG 09/22/2020 17:22:51 Sinus tachycardia no longer present Incomplete right bundle-branch block no longer present Electronically Signed On 06-05-23 15:01:58 MANAGER E LEARNING by Earl Skelton
[2023-06-06] MEDS: Ringers Lactate 1,000 ML IV ONE ×2 (06:00→09:00)
[2023-06-06] MEDS: TRANEXAMIC ACID 1,000 MG/10 ML VIAL IV ONE (06:11)
[2023-06-06] MEDS ORDERED: propofoL 200 MG/20 ML VIAL IV ONE (06:13)
[2023-06-06] MEDS ORDERED: LIDOCAINE 1% MPF 5 ML VIAL ONE ×2 (06:13→07:47)
[2023-06-06] MEDS ORDERED: ONDANSETRON 4 MG/2 ML VIAL ONE (06:13)
[2023-06-06] MEDS ORDERED: FENTANYL CITR 100 MCG/2 ML ONE (06:13)
[2023-06-06] MEDS ORDERED: MIDAZOLAM HCL 2 MG/2 ML INJ ONE (06:14)
[2023-06-06] MEDS: CELECOXIB 100 MG CAPSULE ONE (06:15)
[2023-06-06] MEDS: GABAPENTIN 100 MG CAP ONE (06:15)
[2023-06-06] MEDS: Oxycodone HCl/Acetaminophen 5/325 MG TAB ONE (06:15)
[2023-06-06] MEDS: ACETAMINOPHEN 500 MG TAB ONE (06:15)
[2023-06-06] MEDS: EPINEPHRINE 1 MG/ML VIAL ONE (06:23)
[2023-06-06] MEDS: LIDOCAINE 1% MPF 5 ML VIAL ONE (06:23)
[2023-06-06] MEDS: dexAMETHasone 4 MG/ML VIAL ONE (06:24)
[2023-06-06] MEDS: DEXMEDETOMIDINE HCL 200 MCG/2 ML VIAL ONE (06:24)
[2023-06-06] MEDS: BUPIVACAINE 0.25% PF 30 ML VIAL ONE (06:24)
[2023-06-06] MEDS: MAGNESIUM SULFATE 1 gm IVPB 1 GM/100 ML BAG IV ONE (06:25)
[2023-06-06] MEDS: CEFAZOLIN SODIUM 2 GM/VIAL ONE (07:40)
[2023-06-06] MEDS ORDERED: KETAMINE HCL IN 0.9 % NACL 50 MG/5 ML SYRINGE IV ONE (07:47)
[2023-06-06] MEDS ORDERED: DOCUSATE NA 100 MG CAP PO PRN (09:38)
[2023-06-06] MEDS ORDERED: HYDROCODONE/APAP 7.5/325 MG TAB PO PRN (09:38)
[2023-06-06] MEDS ORDERED: ONDANSETRON 4 MG/2 ML VIAL IV PRN (09:38)
--- NOTE | 2023-06-06 09:43 | P.BOP ---
Preoperative diagnosis: right kneee arthritis Postoperative diagnosis: same Primary procedure: right total knee arthoplasty Estimated blood loss: 20ccs Anesthesia: General Complications: None Transferred to: Recovery Room Condition: Good
--- OUTSIDE RECORDS SUMMARY | 2023-06-06 10:00 | XMS REPORT | Continuity of Care Document ---
Author Name Unknown Address [address] [facility] [address] [place] [address] [facility] thconnect Address [address] [facility] 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 Role Phone LUIS DIALLO Attending Clinician Unavailable Keyur Perez Attending Clinician Unav ailable Linh Attending Clinician UnavailKeyur Plummer Attending Clinician [phone] Kurtis Suarez Attending Clinician UnavailAashish Ly Attending Clinician Unavailable Keyur ePrez Admitting Clinician Unalaurence Melton Admitting Clinician UnavailKurtis Donohue Admitting Clinician UnavailAashish Ly Admitting Clinician Unavailable Physician, No Primary or Family Admitting Clinic daniel Unavailable Payers Payer Name Policy Type Policy Number Effective Date Expirati on Date Source [place]IC[place]: [employer] [id number] 2018 00:00:00 [employer] (MEDICARE SUPPLEMENT) [id number] [facility] (MEDICARE DME REGION C) [id number] 2018 00:00:00 Problems Condition Name Condition Details Condition Category Status Onset Date Resolution Date Last Treatment Date Treating Clinician Comments Source Lumbar radiculopa thy Lumbar Radiculopa thy Problem Active 2022-0 6-14 00:00: 00 [facility] Cervical radiculopa thy Cervical Radiculopa thy Problem Active 6-08 00:00: 00 [facility] Spinal stenosis in cervical region Spinal Stenosis in Cervical Region Problem Active 5-11 00:00: 00 [facility] Cervical spondylosi s Cervical Spondylosi s Problem Active 2020-05 2-13 00:00: 00 [facility] Cervical spine instabilit y Cervical Spine Instabilit y Problem Active 2020-05 0 00:00: 00 [facility] Cervical spine ankylosis Cervical Spine Ankylosis Problem Active 2020-05 0 00:00: 00 [facility] Carpal tunnel syndrome Carpal Tunnel Syndrome Problem Active 01-19 00:00: 00 [facility] Ulnar nerve entrapment at elbow Ulnar Nerve Entrapment at Elbow Problem Active 01-19 00:00: 00 [facility] Cervical spondylosi s with radiculopa thy Cervical Spondylosi s with Radiculopa thy Problem Active 8 00:00: 00 [facility] Degenerati on of cervical interverte bral disc Degenerati on of Cervical Interverte bral Disc Problem Active 817 00:00: 00 [facility] Neck pain Neck Pain Problem Active 8 00:00: 00 [facility] 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 Stenosis of Spinal Canal Due to Bone Problem Active 817 00:00: 00 [facility] 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 Stenosis of Spinal Canal Due to Connective Tissue Problem Active 12-15 00:00: 00 [facility] Allergies, Adverse Reactions, Alerts Allergy Name Allergy Type Status Severity Reaction(s) Onset Date Inactive Date Treating Clinician Comments Source No Known Allergie s DA Active U 4-04 00:00: 00 [facility] No Known Allergie s DA Active U 2020-05 2-13 00:00: 00 [facility] No Known Allergie s DA Active U 01-19 00:00: 00 [facility] No Known Allergie s DA Active U 01-19 00:00: 00 [facility] Social History Smoking Status Start Date Stop Date Source Never Smoker [facility] Medications Ordered Medication Name Filled Medication Name Start Date Stop Date Current Medication? Ordering Clinician Indication Dosage Frequency Signature (SIG) Comments Components Source hydrocodone 5 mg-acetamin ophen 325 mg tablet Take 1 tablet every 6 hours by oral route. hydrocodone 5 mg-acetamin ophen 325 mg tablet Take 1 tablet every 6 hours by oral route. No hydrocodon e 5 mg-acetami nophen 325 mg tablet Take 1 tablet every 6 hours by oral route. [facility] tizanidine 4 mg tablet Take 1 tablet every 6 hours by oral route. tizanidine 4 mg tablet Take 1 tablet every 6 hours by oral route. No tizanidine 4 mg tablet Take 1 tablet every 6 hours by oral route. [facility] Procedures Procedure Date / Time Performed Performing Clinicia n Source XR, cervical spine, 2 or 3 view 2021-10-12 00:00:00 [facility] [id number] 2021-08-02 00:00:00 WIMDA.01 [facility] [id number] 2021-08-02 00:00:00 WIMDA.01 [facility] [id number] 2021-08-02 00:00:00 WIMDA.01 [facility] [id number] 2021-08-02 00:00:00 WIMDA.01 [facility] [id number] 2021-08-02 00:00:00 WIMDA.01 [facility] [id number] 2021-08-02 00:00:00 WIMDA.01 [facility] [id number] 2021-08-02 00:00:00 WIMDA.01 [facility] [id number] 2021-08-02 00:00:00 WIMDA.01 [facility] [id number] 2021-08-02 00:00:00 WIMDA.01 [facility] [id number] 2021-08-02 00:00:00 WIMDA.01 [facility] [id number] 2021-08-02 00:00:00 WIMDA.01 [facility] Neck Surgery 2021-08-02 00:00:00 [facility] K[facility] Hip [facility] Cataract [facility] Back [facility] Plan of Care Planned Activity Planned Date Details Comments Source Instructions [facility] Encounters Start Date/Time End Date/Time Encounter Type Admission Type Attending Clinicians Care Facility Care Department Encounter ID Source 2022-11-04 10:39:00 Outpatient DIALLO, LUIS [facility] [id number] [facility] 2022-10-25 13:11:00 Outpatient DIALLO, LUIS [facility] [id number] [facility] [place] [facility] 2022-05-26 09:46:00 Outpatient DIALLO, LUIS [facility] [id number] [facility] 2021-08-02 16:20:04 Inpatient Keyur Perez [facility] [id number] [facility] 2021-10-12 12:19:00 2021-10-12 12:19:00 Outpatient SANTOSH_Krishan Connolly_ [facility] [place] [id number] [facility] 2021-10-12 00:00:00 2021-10-12 00:00:00 Outpatient Keyur Perez AO [id number] 2021-10-12 00:00:00 2021-10-12 00:00:00 Keyur Perez MD: [address] [place], [place] [address] , Ph. [phone] [facility] [place] [facility] [place] [facility] [id number] [facility] 2021-09-08 12:09:00 2021-09-08 12:09:00 Outpatient SANTOSH_Krishan smyth_Wily_ [facility] [id number] [facility] 2021-08-02 07:18:00 2021-08-03 12:00:00 Inpatient Keyur Blair [facility]AT[facility] SURG [id number] [facility] [place] [facility] 2021-07-01 08:00:00 2021-07-01 23:00:00 Outpatient Keyur BlairTO 3DAY [id number] [facility] [place] [facility] 2021-07-01 16:28:00 2021-07-01 16:28:00 Outpatient Keyur Perez HCACL LABO [id number] [facility] 2021-04-12 08:16:00 2021-04-12 08:16:00 Outpatient SHYAM Sanchesann Kurtis [facility] PAIN [id number] [facility] [place] [facility] 2021-02-05 13:51:00 2021-02-05 05:30:00 Inpatient SHYAM Fisher Aashish [facility] DAYS [id number] [facility] [place] [facility] 2021-01-19 10:00:00 2021-01-19 10:00:00 Outpatient Keyur Blair HCATO RADI [id number] [facility] [place] [facility] Results Test Description Test Time Test Comments Results Result Co mments Source HGB [id number] 05:56:00* Test Item Value Reference Range Interpretation Comme nts HEMOGLOBIN (test code = HGB) 15.4 g/dL 12-16 N HEMATOCRIT (test code = HCT) 43.3 % 37-47 N - XR SPINE 1 V SPEC [id number] 16:16:00 [facility] 1955 Sex: M Patient Name: SAMI CHILDS Unit No: [id number] EXAMS: CPT CODE: [id number] XR SPINE 1 V SPEC LEVEL 38554 INTRAOPERATIVE LATERAL CERVICAL SPINE COMMENT: Screws been placed anteriorly within C7 and T1 at 1616 Reported and signed by: Justin Franco MD CC: Technologist: JOSEPH THOMAS (RT.R) Transcribed D/ (1616) In[facility] NAME: SAMI CHILDS [address] [facility] PHYS: WIMDA.Judie - Keyur Perez Michael : 1955 AGE: 66 SEX: M [place] [address] LOC: PacoNURPHONE #: [phone] EXAM DATE: 08/02/2021 STATUS: PRE IN FAX #: [phone] RAD #: D/C DT PAGE 1Signed Report Patient Name: SAMI CHILDS Unit No: [id number] EXAMS: CPT CODE: [id number] XR SPINE 1 V SPEC LEVEL 95584 (Continued) Orig Print D/T: S: 08/02/2021 (1619) [facility] NAME: SAMI CHILDS [address] [facility] PHYS: WIMDA.Keyur Gonzalez : 1955 AGE: 66SEX: M [place], [place] [address] LOC: YRachelMARIANA PHONE #: [phone] EXAM DATE: 2021 STATUS: PRE IN FAX #: [phone] RAD #: D/C DT PAGE 2 Signed Report [id number] 05:55:00* Test Item Value Reference Range Interpretation Comme nts [id number] (test code = [id number]) Negative Negative The test was pe rformed at: [facility]: 07/26/21Note: this entry is for TRACKING purposes only and the testwas done outside [facility] Healthcare, the perfroming entitiy isfound in specimen comments. The test was performed at: [facility]: 07/26/21Patient's account number from transferring facility: [id number] patient's current lab results are: Negative BASIC METABOLIC [id number] 14:43:00* Test Item Value Reference Range Interpretation Comme nts SODIUM (test code = NA) 142 mmol/L 136-145 N POTASSIUM (test code = K) 4.4 mmol/L 3.5-5.1 N CHLORIDE (test code = CL) 103.0 mmol/L 98-107 N CARBON DIOXIDE (test code = CO2) 28.9 mmol/L 21-32 N GLUCOSE (test code = GLU) 98 mg/dL 70-110 N BLOOD UREA NITROGEN (test code = BUN) 13 mg/dL 7-18 N GLOMERULAR FILTRATION RATE (test code = GFR) 90.9 >60 Unit of m easure: mL/min/1.73 [id number] Range:Healthy Adults >90 mL/min/1.73 m2 For Chronic Kidney Disease: Stage II Mild Decrease in GFR 60-90 Stage III Moderate Decrease in GFR 30-59 Stage IV Severe Decrease in GFR 15-29 Stage V Kidney Failure <15 CREATININE (test code = CREAT) 0.84 mg/dL 0.55-1.30 N CALCIUM (test code = CA) 8.8 mg/dL 8.2-10.1 N PROTHROMBIN [id number] 14:03:00* Test Item Value Reference Range Interpretation Comme nts PROTHROMBIN TIME PATIENT (test code = PTP) 11.5 secs 9.7-12.5 N Please note new normal range. INTERNATIONAL NORMAL RATIO (test code = INR) 1.04 <2.0 RECOMMENDED THER APEUTIC RANGE FOR ORAL ANTICOAGULANTTREATMENT: CONDITION INRProphylaxis of venous thrombosis in 2.0 - 3.0 high-risk medical or surgical patientsTreatment of venous thrombosis 2.0 - 3.0Prevention of embolism 2.0 - 3.0Prevention of recurrent embolism, or 3.0 - 4.5 patients with mechanical prosthetic intravascular valves IS PATIENT ON ANTICOAGULANTS ? NDas Lab been notified if Patient is on Heparin Drip? NOIf Yes, order CBC, OCCULT BLOOD, PT every other day NTHROMBOPLASTIN TIME [id number] 14:03:00* Test Item Value Reference Range Interpretation Comme nts PTT ACTIVATED (test code = APTT) 29.7 secs 26.6-34.6 N Please note new normal range. IS PATIENT ON ANTICOAGULANTS ? NDas Lab been notified if Patient is on Heparin Drip? NOIf Yes, order CBC, OCCULT BLOOD, PT every other day NCBC W/AUTO DIFF 2021-07-01 13:18:00* Test Item Value Reference Range Interpretation Comme nts WHITE BLOOD CELL (test code = WBC) 6.3 K/mm3 5.7-10.5 N RED BLOOD CELL (test code = RBC) 4.99 M/mm3 4.2-5.4 N HEMOGLOBIN (test code = HGB) 16.1 g/dL 12-16 H HEMATOCRIT (test code = HCT) 47.2 % 37-47 H MEAN CELL VOLUME (test code = MCV) 95 fL 80-98 N MEAN CELL HGB (test code = MCH) 32.3 pg 27-34 N MEAN CELL HGB CONCENTRATION (test code = MCHC) 34.1 g/dL 30.8-34.1 N RED CELL DISTRIBUTION WIDTH (test code = RDW) 12.4 % 11-16 N PLT (test code = PLT) 247 K/mm3 130-400 N MEAN PLATELET VOLUME (test c ode = MPV) 10.1 fL 8.9-12.1 N NEUTROPHIL % (test code = NT%) 58.7 % 45-70 N LYMPHOCYTE % (test code = LY%) 30.0 % 20-40 N MONOCYTE % (test code = MO%) 8.3 % 3-10 N EOSINOPHIL % (test code = EO%) 2.2 % 1-5 N BASOPHIL % (test code = BA%) 0.3 % 0.0-1.1 N NEUTROPHIL # (test code = NT#) 3.69 K/mm3 2.00-7.50 N LYMPHOCYTE # (test code = LY#) 1.89 K/mm3 1.50-4.00 N MONOCYTE # (test code = MO#) 0.52 K/mm3 0.2-0.8 N EOSINOPHIL # (test code = EO#) 0.14 K/mm3 0.04-0.4 N BASOPHIL # (test code = BA#) 0.02 K/mm3 0.02-0.10 N MANUAL DIFF REQUIRED (test c ode = MDIFF) NO MANUAL DIFF NUCLEATED RED BLOOD CELL (te st code = NRBC) 0 % 0-0 N - XR FLUORO FOR SPINE [id number] 21:51:00 [facility] 1955 Sex: M Patient Name: SAMI CHILDS Unit No: [id number] EXAMS: CPT CODE: [id number] XR FLUORO FOR SPINE [id number] CERVICAL FACET DIAGNOSTIC INJECTION REFERRAL PHYSICIAN: None Preoperative diagnosis: Cervicalspondylosis without myelopathy or radiculopathy Postoperative diagnosis: Cervical spondylosis without myelopathy or radiculopathy Procedure performed: Fluoroscopically guided needle localization of the bilateral C2-3 and left C5-6 facets with arthrograms and diagnostic injection of local anestheticand steroid. Findings:Marked degeneration with possible partial ankylosis is seen at the bilateral C2-3 facets and moderate generation seen at the left C5-C6 facet without significant joint hypertrophy. Provocation with injection was negative. Anesthetic response was positive with the patient noting relief of his cervicalgia. Preinjection VAS 7/10. Postinjection VAS 0/10. Steroid response pendingfollow-up. Estimated blood loss: Minimal Anesthesia: TIVA Complications: None Details of procedure:After obtaining stable vital signs, informed consent and IV access, with no contraindications to proceeding, the patient was taken to the operating room and placed in a prone position with all extremities padded and appropriate monitors placed. The patient was sterilely prepped and draped over thecervical spine. Using fluoroscopic visualization the insertion sites were marked for a posterior paravertebral approaches and using standard technique, a 26-gauge needle was inserted into each joint capsule without paresthesias. Aspiration was negative. Isovue-300 contrast 0.2 mL was injected to produce each arthrogram. There were no signs of intravascular or intrathecal uptake. Bupivacaine 0.75%0.25 mL with lidocaine 4% 0.25 mL and triamcinolone 16 mg was then injected incrementally with frequent negative aspirations at each joint. There were no signs of intravascular or intrathecal uptake.The patient's vital signs remained stable. All needles were removed and the patient was taken to the PACU in good condition. Image: Image 1 Image: Image 2 Image: Image 3 [facility] NAME: SAMI CHILDS [address] [place] [address] PHYS: Kurtis Levin MD [place], [place] [address] :1955 AGE: 65 SEX: M LOC: ERIC PHONE #: [phone] EXAM DATE: 04/12/2021 STATUS: REG [facility] FAX #: [phone] RAD #: D/C DT PAGE 1 Signed Report (CONTINUED) Patient Name: SAMI CHILDS Unit No: [id number] EXAMS: CPT CODE: [id number] XR FLUORO FOR SPINE INJ 71049 (Continued) at 2150 Reported and signed by: Kurtis Suarez M.D. CC: Kurtis Suarez MD Technologist: Jimmy PhillipsRT(R) Transcribed D/ (2150) [facility]: [facility] [address] [place] [address] PHYS: Kurtis Levin MD [place], [place] [address] : 1955 AGE: 65 SEX: M LOC: ERIC PHONE #: [phone] EXAM DATE: 04/12/2021 STATUS: REG [facility] FAX #: [phone] RAD #: D/C DT PAGE 2 Signed Report Patient Name: SAMI CHILDS Unit No: [id number] EXAMS: CPT CODE: [id number] XR FLUORO FOR SPINE INJ 03245 (Continued) Orig Print D/T: S: 04/12/2021 (215) [facility] NAME: SAMI CHILDS [address] [facility] PHYS: Kurtis Levin MD [place], [place] [address] : 1955 AGE: 65 SEX: M LOC: ERIC PHONE #:[phone] EXAM DATE: 04/12/2021 STATUS: REG [facility] FAX #: [phone] RAD #: D/C DT PAGE 3 Signed [id number] 08:15:00* Test Item Value Reference Range Interpretation Comme nts [id number] (test code = WYJFT97Omhguomh) Negative Negative The test was pe rformed at: [facility]:Note: this entry is for TRACKING purposes only and the testwas done outside [facility] Healthcare, the perfroming entitiy isfound in specimen comments. The test was performed at: [facility]: [facility]'s [facility] results are: Negative- MRI C-SPINE W/O [id number] 12:13:00 [facility] 1955 Sex: M Patient Name: SAMI CHILDS Unit No: [id number] EXAMS: CPT CODE: [id number] MRI C-SPINE W/O CONT 86235 DIAGNOSIS: 1. At C2-3 there is posterior central annular fissuring without bulging or protrusionof the disc contour. A slight degenerative spondylolisthesis is seen without canal or foraminal narrowing. 2. At C3-4 there is anterior fusion without canal or foraminal narrowing. 3. At C4-5 there is anterior fusion and moderate left foraminal narrowing and mild right foraminal stenosis. Bilateral facet degeneration is present. No canal stenosis is seen. 4. At C5-6 there is a degenerative grade1 spondylolisthesis with 4 mm of disc herniation with cephalad migration compressing the cervical cord and extending asymmetrically into the right neural foramen. Mild bilateral foraminal narrowing is present. The canal is stenotic with an AP diameter of 8 mm. 5. At C6-7 there is a mild degenerative spondylolisthesis and disc bulging with mild foraminal narrowing. The canal is stenotic with an APdiameter of 11 mm. 6. At C7-T1 there is 2 mm of disc bulging with moderate foraminal narrowing on the left and moderate to marked narrowing on the right. No canal stenosis is seen. COMMENT: COMPARISON: No prior exams available. Scans were performed in the sagittal and axial planes utilizing T1, gradient echo, T2 and inversion recovery images. Postsurgical changes are seen from C2 to C4. Endplate and disc degeneration is present from C4 to T1. The cord appears normal in size and signal. Electr onically Signed by Justin Franco MD on 01/19/2021 at 1213 Reported and signed by: Justin Franco MD CC: Technologist: Neal Dhaliwal(R) Transcribed D/ (1213) DylanLida [facility] NAME: SAMI CHILDS [address] [facility] PHYS: WIMDA.Judie - [place] Michael : 1955 AGE: 65 SEX: M [place], [place] [address] LOC: Y.MRI PHONE #: [phone] EXAM DATE: 01/19/2021 STATUS: REG CLI FAX #: [phone] RAD #: D/C DT PAGE 1 Signed Report Patient Name: SAMI CHILDS Unit No: [id number] EXAMS: CPT CODE: [id number] MRI C-SPINE W/O CONT 98058 (Continued) Orig Print D/T: S: 01/19/2021 (1216) [facility] NAME: SAMI CHILDS [address] [facility] PHYS: WIMDA.01 - ChrisKeyur Michael : 1955 AGE: 65 SEX: M [place], [place] [address] LOC: Y.MRI PHONE #: [phone] EXAM DATE: 01/19/2021TATUS: REG CLI FAX #: [phone] RAD #: D/C DT PAGE 2 Signed Report- XR C-SPINE 4-5 [id number] 11:51:00 [facility] 1955 Sex: M Patient Name: SAMI CHILDS Unit No: [id number] EXAMS: CPT CODE: [id number] XR C-SPINE 4-5 V [id number]: Concurrent MRI. IMAGES PROVIDED: 4 views of the cervical spine FINDINGS: C3-C5 ACDF is demonstrated with solid interbody fusion. There is grade 1 spondylolisthesis of C5-C6. Abnormal motion at C5-C6 is consistent with dynamic instability. Marked disc degeneration is greatest at C5-C6 and C6-C7. Lower cervical facet hypertrophy. Soft tissues are unremarkable. Lung apices are clear. IMPRESSION: Postoperative cervical spine with evidence of dynamic instability at C5-C6. at 1151 Reported and signed by: Girma Singh M.D. CC: Technologist: RT. Kusum(R) Transcribed D/ (1151) DylanAline [facility] NAME: SAMI CHILDS [address] [facility] PHYS: LISSET Keyur Perez : 1955 AGE: 65 SEX: M [place] [address] LOC: Y.MRI PHONE #: [phone] EXAM DATE: 01/19/2021 STATUS: REG CLI FAX #: [phone] RAD #: D/C DT PAGE 1 Signed Report Patient Name: SAMI CHILDS Unit No: [id number] EXAMS: CPT CODE: [id number] XR C-SPINE 4-5 V 68527(Continued) Orig Print D/T: S: 01/19/2021 (1154) [facility] NAME: SAMI CHILDS[address] [facility] PHYS: LISSET Keyur Perez : 1955 AGE: 65 SEX: M [place] [address] LOC: Y.MRI PHONE #: [phone] EXAM DATE: 01/19/2021 STATUS: REG CLI FAX #: [phone] RAD #: D/C DT PAGE 2 Signed Report Notes Date/Time Note Provider Source 2021-08-03 08:18:00 [id number] i/SXn+0vJiKG/fxrYsBqAUhs51E0343-66-14K87:18:00 [facility]Discharge SummaryREPORT#:[id number] REPORT STATUS: SignedDATE:08/03/21 TIME: 817 PATIENT: SAMI CHILDS UNIT #: [id number]#: [id number] [address] [birth year] AGE: 66 SEX: M ATTEND: Keyur Perez MDADM AUTHOR: Keyur Perez MD * ALL edits or amendments must be made on the electronic/computer document * General InformationDischarge date: 08/03/21Hospital course: Discharge Diagnosis: Cervical Stenosis, Cervical Radiculopathy Procedure: C5-T1 ACDF with ESF/HWR C3-C5 Hospital Course: The patient was admitted to the floor for postoperative pain control and observation. The procedure was well-tolerated without immediate complications. Post-operative pain was well controlled with oral pain medications. Dr. Enamorado was consulted for internal medicine management and the patient's hemodynamic status was monitored and remained stable throughout recovery. The patient progressed well the first day and night after surgery, was placed on prophylactic antibiotics, and the surgical wound remained clean, dry, and intactwithout signs of infection. The patient ambulated frequently with physical therapy and was kept in VIKY hose and on PlexiPulse for DVT prophylaxis throughout recovery. Once the patient's pain was well controlled on PO pain medications, the patient was ambulating without difficulty, and was tolerating aregular diet, the patient was discharged. Disposition: Discharged to home Discharge Condition: Stable Instructions: As per DC instruction sheet Prescriptions:1. Pain medications: As per discharge prescriptions, with progressive weaning as pain decreases.2. OsCal Follow Up: The patient was instructed to follow up again in clinic 2 weeks aftersurgery and is necessary for changes in symptoms or worsening of condition. Laboratory Tests 08/03/21 0410:[Embedded Image Not Available]Vital SignsDate Temp Pulse Resp B/P B/P Mean Pulse Ox XlX202/-08/03 96.6-98.2 65-90 12-19 111-157/57-9 87.9-101.9 96-100 32-100 4 Intake Output 08/03 0700 04/ 2300 04/04 1500 Intake Total 650.00 Output Total 2930 2060 Balance -2930 -1410.00 Intake, IV 620.00 Intake, Oral 30 Number Voids 1 Output, 30 60 Drainage Output, Urine 2900 1999 Patient 185 lb Weight Weight Standing scale Measurement Method Discharge Instructions Discharge InstructionsAdditional Discharge Routines: None (as per DC instructions. ) at 0819 [facility] #:[phone] OF REPORT DSDischarge bgrsxdj1948-04-77W10:18:00Y.[id number] ailable for patient gwyrULHQSIRCDYHZCR8664-71-98U62:19:52 [facility] 2021-08-03 08:16:00 [id number] sS8UcqqlxZ8ZCKI/+tekI/gKAZX3826-38-22T68:16:00 [facility] [facility])Clinical NoteREPORT#:[id number] REPORT STATUS: SignedDATE:08/03/21 TIME: 815 PATIENT: SAMI CHILDS UNIT #: [id number]#: [id number] [facility]GE[facility] 66 SEX: M ATTEND: Keyur Perez [facility] AUTHOR: Keyur Perez MD * ALL edits or amendments must be made on the electronic/computer document * Clinical NoteNote:Spine Check:AAOx3. Conversational and appropriate. Pain well controlled. Sitting up in bed this am eating breakfast. Dressing c/d/i. HV maintaining suction. Ambulating in halls and voiding without issue. VIKY hose and SCDs to BLE. No S/S of DVT.AVSSSILT BUE C5-Q9Xypbw Bicep: 4/5, right Tricep: 4/5, otherwise 5/5 BUEPlan:1. Ambulate TID2. ADAT 3. ABX4. Pain per APMS 5. IM Consult6. IS + DVT ppx. 7. DC to home today8. Follow up in two weeks Laboratory Tests 08/03/21 0410:[Embedded Image Not Available]Vital SignsDate Temp Pulse Resp B/P B/P Mean Pulse Ox ZjU520/-08/03 96.6-98.2 65-90 12-19 111-157/57-9 87.9-101.9 96-100 32-100 4 Intake Output 04 0700 04/04 2300 04/04 1500 Intake Total 650.00 Output Total 2930 2060 Balance -2930 -1410.00 Intake, IV 620.00 Intake, Oral 30 Number Voids 1 Output, 30 60 Drainage Output, Urine 2900 2000 Patient 185 lb Weight Weight Standing scale Measurement Method at 0818 RPT #:[id number] OF REPORT CLClinical olhd8849-02-75T35:16:00Y.LNQI07611627-5184RDTmgdy able for patient wdluFMWFIZZEYXIMTE7876-45-17C80:18:52 [facility] 2021-08-03 07:49:00 [id number] OnXXjIcOV2O7jpeXum0teEzGkA/OR PZvz0AT3gjF11b8GuYbccJ1UHWK0636-69-53X15:49:27461 5-0038 [place] [address] PATIENT NAME: SAMI CHILDS ADMIT DATE: 08/02/21ACCOUNT NO: [id number] ROOM NO: [facility] AGE: 66 REPORT TYPE: OPERATIVE REPORT SEX: M ADMITTING PHYSICIAN:Keyur Perez MD ATTENDING PHYSICIAN:Keyur Perez MD OPERATION DATE: 08/02/2021 PREOPERATIVE DIAGNOSIS: Adjacent segment disease, 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 PROCEDURES PERFORMED:1. Removal of segmental instrumentation, C3-5.2. Exploration of anterior cervical fusion C3-5.3. Placement of anterior cervical fixation, C3 through C5.4. Local autograft harvest.5. Titanium Plasma-Sprayed interbody cage implantation, C3-4 and C4-5.6. Intraoperative use of fluoroscopy. SURGEON: Keyur Perez M.D. [employer] OPERATOR: Hari Malin NP, WASTE RECLAIMER. ANESTHESIA: General endotracheal. FINDINGS:1. Solidly healed anterior cervical fusion.2. Severe adjacent segment disease with severe collapse and kyphoticangulation.3. No change of intraoperative spinal cord monitoring signals.4. Severe stenosis. INDICATIONS: Mr. Childs is a 66-year-old patient, status post previous anteriorcervical arthrodesis in 2008 at an outside facility. He has developedsymptomatic adjacent segment degenerative change with progressive loss offunction of his arms. 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 As a result, he has elected to proceed with an exploration of hisprevious anterior cervical fusion and extension down to T1. PROCEDURE IN DETAIL: After the patient?s identity was verified and apreoperative intravenous antibiotic was administered, the patient was placedsupine on the operating room table. The cervical spine was gently extended overa bolster. All bony prominences were padded and double-checked. The patientwas fitted with thigh-high VIKY hoses and foot pumps for perioperative thrombosisprophylaxis. After the anterior cervical skin was prepped and draped in usual PATIENT NAME: SAMI CHILDS sterile fashion, a standard anterior approach to the cervical spine was madefrom the patient's left. Dissection was taken medial to the sternocleidomastoidmuscle and bluntly down to the anterior aspect of the spine. We exposed theprevious anterior cervical hardware spanning between C3 and C5. This wasremoved in its entirety. The anterior cervical fusion at these levels wasexplored and was felt to be solidly healed. We subsequently turned ourattention towards the adjacent levels. An intraoperative radiograph confirmedthe appropriate levels of surgery. Next, beginning with the C7-T1 motion segment, a radical diskectomy wasperformed with removal of all disk material and endplate cartilage. Theuncovertebral joints were also cleared of all soft tissue. A formal posteriordecompression was performed with removal of the posterior osteophytes inaddition to the posterior longitudinal ligament. Generous bilateralforaminotomies were performed. A ball-ended probe was used to verifyappropriate decompression of the neural foramina. Meticulous hemostasis wasobtained, and we turned our attention towards the adjacent C5-6 and C6-7 motionsegment. At C5-6 and C6-7, the exact same decompression procedure wasperformed. After neural element decompression was verified using a ball-endedprobe and meticulous hemostasis was obtained, we turned our attention towardsreconstruction. The patient chose a plasma-sprayed, titanium interbody fusion cages with localautografting for the reconstruction. Lordotic grafts were chosen. Localautograft bone harvested from the anterior cervical spine was used to fill thegraft windows of the three interbody cages and the hybrid graft constructs weretamped into position after each of the disk spaces were meticulously prepared toaccept the graft constructs. An Aesculap Quintex anterior cervical plate wasaffixed from C5 to T1 and held with 8 screws. Of note, the instrumentationportion of the operation was prolonged and protracted secondary to therequirement to remove the previous anterior cervical plate, which was left fromthe previous surgical procedure. I would estimate that the instrumentationportion of the operation took at least 3 times as long as in a patient who didnot have indwelling hardware. The intraoperative use of fluoroscopy wasutilized to confirm the appropriate positioning of the hardware and graftmaterial. It should be noted that at the time of the placement of self-retainingretractors that the endotracheal tube cuff was lowered and raised to just abovea leak test. At the end of the procedure, a dilute solution of indigo carminewas lavaged down the esophagus to be certain that no inadvertent esophagealperforation was made. None was identified. A pre-vertebral drain was left patti standard layered wound closure was performed. Steri-Strips and a steriledressing were applied. The patient was placed in a hard cervical collar. The patient tolerated the procedure well. There were no intraoperativecomplications. The patient was awakened, extubated, and taken to the recoveryroom in satisfactory condition. The skilled assistance of Hari Malin, DIANNA, WASTE RECLAIMER was necessary during thiscomplex, instrumented spinal arthrodesis procedure. He assisted with everyaspect of the operation including, but not limited to, proper and safe PATIENT NAME: SAMI CHILDS positioning of the patient, obtaining adequate surgical exposure, manipulationof surgical instruments, the delicate task of providing suction to the surgicalwound immediately adjacent to the spinal cord and neural elements, the delicatetask of retraction of trachea and esophagus to allow adequate visualization ofthe operative site, the continual process of hemostasis during the procedureitself in addition to surgical wound closure and removal of the patient from theoperating table and [facility]. Hisassistance allowed me to perform the most sensitive and technical potions ofthis operation using 2 hands, thus enhancing patient safety. This would not bepossible without the help of a skilled mail handler assistant familiar with the procedure andcapable of safely performing the aforementioned tasks. Our facility [facility], and as such, no surgical residents or interns were availableto assist. COMPLICATIONS: None. COUNTS: Sponge and needle counts were correct x2. Dictated By: Keyur Perez MD WT: OP:MUNA/LISSET/NTSDD: 08/03/2021 07:49:37DT: 08/03/2021 10:23:57Conf#: [id number]/DID#: [id number] Authenticated by Keyur Perez MD On 08/07/2021 11:58:32 AM at 1158 PATIENT NAME: SAMI CHILDS boupcf2031-01-12W95:23:00Y.[id number] lable for patient voxdJNVUUTZQXCXIPS0965-20-51W86:59:00 [facility] 2021-08-02 17:51:00 [id number] Erx6MjUIY9vo8QR2PC4h75QYXJHal CxQ8bdKzUxiD8nOE+HJoZTg13z37365-55-62M78:51:00 [facility] ([facility])Clinical NoteREPORT#:[id number] REPORT STATUS: SignedDATE:08/02/21 TIME: 1751 PATIENT: SAMI CHILDS UNIT #: [id number]#: [id number] ROOM/BED: [facility]-ADOB: [birth year] AGE: 66 SEX: M ATTEND: Keyur Perez [facility] AUTHOR: Chris Enamorado MD * ALL edits or amendments must be made on the electronic/computer document * Clinical NoteNote:Internal Medicine Chris Enamorado MD(office: [phone])Internal Medicine Consult at request of : Dr. Keyur Perez Chief Complaint: neck pain HPI: 66 yo M is now s/p exploration of spinal fusion, hardware removal C3 o C5 with C5 to T1 Anterior Cervical Discectomy Fusion (ACDF) by Dr. Perez. Mr. Childs relates years of progressive neck pain (recently severe), worse with activity, and with restricted motion at times in quality. He has failed conservative management.Comorbidities: see below. PmHx: . Osteoporosis, osteoarthritis, back and neck pain ALLERGY: Allergies Allergy Severity Reaction Updated Coded No Known Allergies 08/02/21 Home Medications: Home Medications:No Known Home Medications SgHx: .Left TKA, lumbar spine, cervical spine, bilateral knee scopes, CTR, cataracts, right wrist, bilateral ankle SHx: Tob: none FHx: .No significant hx of DVT/PE.Alcohol: none Drugs: none Lives: alone ROS: [X] all systems reviewed and negative except-[ ] Con: . Fever/ Wt loss [ ] CV: cpain/edema. [ ] Pul: . cough/SOB [ ] GI: hematemesis/diarrhea [ ] : . dysuria or hematuria [X] MS: neck pain[ ] Neuro: . headache/loss sensation [ ] Heme: . adenopathy/Ecchymosis Vitals:Vital Signs: Date Time Temp Pulse Resp B/P B/P Pulse O2 O2 Flow FiO2 Mean Ox Delivery Rate 08/02 2300 36.1 85 16 122/71 87.9 99 08/02 2247 99 Nasal 3 32 cannula 08/02 1954 Nasal 3 cannula 08/02 184 35.9 85 16 131/76 94.3 98 08/02 1842 Nasal 3 100 cannula 08/02 1821 35.9 86 18 142/82 101.9 99 Nasal cannula 08/02 1755 36.3 85 15 134/76 97 Nasal 3 cannula 08/02 1740 85 14 130/70 97 Nasal 3 cannula 08/02 1729 Nasal 3 cannula 04/04 1725 84 14 127/68 97 Nasal 3 cannula 04/04 1710 83 15 121/66 97 Nasal 3 cannula 04/04 1655 83 14 129/67 96 Nasal 3 cannula 04/04 1640 82 19 140/80 99 Nasal 3 cannula 04/04 1625 76 18 147/82 99 Nasal 3 cannula 04/04 1610 75 19 152/85 99 Nasal 3 cannula 04/04 1555 81 19 157/82 100 Nasal 3 cannula 04/04 1553 Simple 10 mask 04/04 1540 86 17 156/94 98 Nasal 3 cannula 04/04 1525 82 12 124/67 98 Nasal 3 cannula 04/04 1510 66 12 111/61 99 Simple 6 mask 04/04 1455 36.1 65 16 112/57 99 Simple 6 mask 04/04 0757 36.5 79 16 117/69 95 Room air Gen: Alert, in mild discomfort, nl nutrition.EYE: Nl lids conjunctiva.ENT: Nl ears Nose, nl lips,. CV: Regular Rate Rhythm, no heave or significant murmur. Edema- none Feet toes normal temperature.RESP: Clear to Auscultation, normal Respiratory effort.ABD: Soft, NonDistended,.LYM: No significant cervical Lymphadenopathy.MS: No sign of compartment syndrome, Cervical collar in place, incisional dressing dry and intactNEURO: Nonfocal, grossly normal sensation of LE, +Ankle DF/PFPSY: Normal insight, Normal mood, oriented, .Preop Labs (07/01/2021): CBC:. Hgb 16.1, Plt 247, CHEM: Na 142, K 4.4, Cr 0.84 (eGFR 90.9%)Ekg: NSR(medium to high risk of complications or morbidity) (major surgery) (IV sedative, meds) Assessment Plan1.) Anemia of Acute Blood Loss- .will recheck tomorrow. 2.) S/p exploration of spinal fusion, hardware removal C3 o C5 with C5 to T1 Anterior Cervical Discectomy Fusion (ACDF) .acute pain control. DVT prophylaxis as per 3.) Hypertension- .follow BP and hold Rxs if SBP<120. Chris Enamorado M.D. Thanks! at 2334 RPT #:[id number] OF REPORT CLClinical rcqe5468-83-69Q42:51:00Y.SSET99835313-6400IXZtbsz able for patient brcpNULVTOKRANIUHZ8325-60-35U77:35:02 [facility] 2021-07-01 12:14:00 [id number] 6hnlJwmyty3A3fFlT6PS9W0ye1ZTA 6wtfgUoP4hBqpBV4QsHDnocteNN0496-87-86L72:14:26763 0 [place] [address] PATIENT NAME: SAMI CHILDS ADMIT DATE: ACCOUNT NO: [id number] ROOM NO: AGE: 66 REPORT TYPE: ELECTROCARDIOGRAM SEX: M ADMITTING PHYSICIAN: ATTENDING PHYSICIAN:Keyur Perez MD Order:[id number] Reason : >50 Test Date/Time Stamp:MonJul 01 2021 12:14:20Blood Pressure : / mmHGVent. Rate : 070 BPM Atrial Rate : 070 BPM P-R Int : 200 ms QRS Dur : 096 ms QT Int : 398 ms P-R-T Axes : 074 013 071 degrees QTc Int : 429 ms Normal sinus rhythmNormal ECGWhen compared with ECG of 19-JAN-2021 15:01,No significant change was foundConfirmed by SUE CHRIS MD ([id number]) on 07/05/2021 3:50:08 PM Referred By: Keyur Perez Confirmed by:SUE CHRIS MD at 1550 PATIENT NAME: SAMI CHILDS .[id number] AVAvailable for patient qdgbDNGMLJBVNQDLTR8232-99-69S01:50:29 [facility] 2021-02-05 12:43:00 [id number] fUeFlHoQlqDh2t604xlY7zUbHhUmw dyM1iMqnBrco2YriSyC6EzrDVub0589-89-51Z85:43:00 [facility] ([facility])DT Operative NoteREPORT#:[id number] REPORT STATUS: SignedDATE:02/05/21 TIME: 1243 PATIENT: SAMI CHILDS UNIT #: [id number]#: [id number] ROOM/BED:: 53 AGE: 65 SEX: M ATTEND: Aashish Fisher MDADM AUTHOR: Aashish Fisher MD * ALL edits or amendments must be made on the electronic/computer document * Operative Report Operative NoteNote:DATE OF SERVICE: 02/05/21PREOPERATIVE DIAGNOSIS:1. left carpal tunnel syndrome2. left cubital tunnel syndromePOSTOPERATIVE DIAGNOSIS: 1. left carpal tunnel syndrome2. left cubital tunnel syndromeOPERATION PERFORMED: 1. left endoscopic carpal tunnel release2. left ulnar nerve in situ releaseSURGEON: Aashish Fleming SURGEON: Duran Cruz FOR [employer] OPERATOR: The skilled assistance of Duran Avelar PA-C was necessary during this case. He assisted with every aspect of the operation including, butnot limited to, proper and safe positioning of the patient, obtaining adequate surgical exposure, retraction of the ulnar nerve, the continual process of hemostasis during the procedure, and surgical wound closure and removal of the patient from the operating table and [facility] His assistance allowed me to perform the most sensitive and technical portions of this operation using 2 hands, thus enhancing patient safety. This would not be possible without the help of a skilled mail handler assistant familiar with the procedure and capable of safely performing the aforementioned tasks. Our facility is not a teaching hospital, and as such, no surgical residents or interns were available to assist.ANESTHESIA: general anesthesiaCOMPLICATIONS: None.ESTIMATED BLOOD LOSS: 5 mlTOURNIQUET TIME: 45 minutes at 250 mmHgFINDINGS: Ulnar nerve was significant compressed at the cubital tunnel with an hour glass lesion noted. There was complete release of the transverse carpal ligament. INDICATION FOR PROCEDURE: This is a 65 year old male with left carpal and cubital tunnel syndrome that hasbeen recalcitrant to conservative treatment options. Patient wishes to proceed with surgical release. Risks, benefits, and alternatives to the procedure were discussed with the patient in detail preoperatively. Risks include, but not limited to, infection, damage to blood vessels or nerves, stiffness of fingers, thumb, and wrist, and need for further surgery. Additionally, there is a chance that the procedure may be converted to an open procedure if there is inadequate visualization. There is also a chance that the ulnar nerve may have to be moved to a different position. The patient verbalized understanding of these risk and consented to proceed.PROCEDURE IN DETAIL:Patient was identified in the pre-operative holding area. The patient was then brought to the Operating Room where a formal time-out was performed to confirm the correct patient, site, and planned operation. General anesthesia was provided by the anesthesia team. A well-padded tourniquet was placed on the upper arm. The patient's arm was prepped and draped in the usual sterile fashion. The hand was then exsanguinated and tourniquet inflated. No perio-operative antibiotics was given. An approximately 1 cm transverse incision was then made between the two volar wrist creases. The palmaris tendon was identified and the underlying fascia was opened with a tenotomy scissor. A spatula was then inserted deep to the leading edge of the transverse carpal ligament to clean the tenosynovium off its undersurface. Sequential dilators were placed into the carpal tunnel hugging miller. I inserted the endoscope from the proximal end. I had excellent visualization of the proximal and distal transverse carpal ligament. I released the ligament from distal to proximal. I was able to identify both leaflets afterthe release, confirming complete release. Proximally, the forearm fascia was released under direct visualization using tenotomy scissors. All instruments were then withdrawn from the wrist. The proximal incision was closed with a subcutaneous monocryl 4-0 suture and dermabond was applied to the incisions. I turned my attention to the elbow. I began with a longitudinal incision along the course of the nerve just posterior to the medial epicondyle. I dissected carefully through skin and subcutaneous tissue. The medial antebrachial cutaneous nerve branches were carefully dissected free and vessel loop was placed around to protect these branches. The nerve was identified proximally patti vessel loop placed around the nerve. I began to release the nerve from proximally to distally, starting with the fascial bands of the arcade of [place]. Proceeding distally the fascia of the cubital tunnel was released with Tucker's ligament. Finally, the fascia over the two heads of the FCU was incised. I made sure there was no compression of the ulnar nerve proximally nor distally. The subcutaneous and dermal layer was closed with 2-0 vicryl sutures. A running 3-0 monocryl subcuticular stitch was then placed followed by dermabondon the skin. A bulky soft dressing was then placed and tourniquet was deflated. Patient was then reversed out of anesthesia and transferred to recovery room without any incident.Aashish Fisher at 1244 [facility] #:[id number] OF REPORT OPOperative gkobzc9981-99-63U21:43:00Y.ONRF14290615-8662JTJul ilable for patient kojcMJZUTBPASAXXBI6997-25-68S73:44:36 [facility] 2021-01-19 15:01:00 [id number] kStghgj4Ag32ljCdiSjyuyzHO64em KCHFi+W5i3zFcgwshXK88FxNWcm3364-43-19E70:01:95060 3-0051 [place] [address] PATIENT NAME: SAMI CHILDS ADMIT DATE: ACCOUNT NO: [id number] ROOM NO: AGE: 65 REPORT TYPE: ELECTROCARDIOGRAM SEX: M ADMITTING PHYSICIAN: ATTENDING PHYSICIAN:Aashish Fisher MD Order:[id number] Reason : PRE-OP CLEARANCE AGE Test Date/Time Stamp:MonJan 19 2021 15:01:21Blood Pressure : / mmHGVent. Rate : 061 BPM Atrial Rate : 061 BPM P-R Int : 210 ms QRS Dur : 094 ms QT Int : 420 ms P-R-T Axes : 072 035 067 degrees QTc Int : 422 ms Sinus rhythm with 1st degree AV blockOtherwise normal ECGNo previous ECGs availableConfirmed by SUE CHRIS MD ([id number]) on 01/21/2021 11:46:31 AM Referred By: Aashish Fisher Confirmed by:SUE CHRIS MD at 1146 PATIENT NAME: SAMI CHILDS .[id number] AVAvailable for patient dqizWIQCSFZFCOSTGP5272-98-52L78:46:53 [facility]
[2023-06-06 13:03] VITALS: BMI 24.4
--- NOTE | 2023-06-06 16:21 | P.CNS ---
Date of Consult: 06/06/23 Reason for Consult: Medical management Requesting Physician: Gustavo Moore Chief Complaint: Right total knee Allergies No Known Allergies Allergy (Verified 06/06/23 07:51) Home Medications: NK [No Home Meds] 06/02/23 - Past Medical/Surgical History Diabetic: No -: none -: Back surgery -: Neck surgery -: Left hip replacement -: eye socket surgery -: knee surgery -: bilateral foot reconstruction Psychosocial/ Personal History: Patient is retired, lives alone - Family History Mother Medical History: Cancer Father Medical History: Other (see notes) Notes: Brain Anuerysm - Social History Alcohol use: No CD- Drugs: No Caffeine use: Yes Place of Residence: Home Physical Examination Temp Pulse Resp BP Pulse Ox 97.2 F 64 16 133/68 96 06/06/23 12:00 06/06/23 12:00 06/06/23 12:00 06/06/23 12:00 06/06/23 12:00
[2023-06-06] MEDS: CEFAZOLIN 1 GM in NA CHLORIDE 0.9% 50 ML IVPB SCH (17:54)
--- NOTE | 2023-06-06 19:53 | OP ---
Date of Procedure: 06/06/2023 Surgeon: Gustavo Moore MD Preoperative Diagnosis: Right knee arthritis. Postoperative Diagnosis: Right knee arthritis. Procedure: Right total knee arthroplasty using the [employer] system. Estimated Blood Loss: 20 cc. Complications: There were no complications. Indications For Operation: Mr. Childs is a 68-year-old extremely active man who has an MRI, which de monstrates grade 4, essentially [id number] changes of the medial compartment. We attempted to janet t this conservatively including injections and other conservative measures. However, the patient is essentially suffering with this pain and is highly active and says that he cannot do his activities a s he would like despite all of our measures. The risks, benefits, and alternatives of total knee art hroplasty were discussed with the patient. He states he understands things as presented and wishes t o proceed. Description Of Procedure: Patient obtained a block in the holding area. He was then taken to the op erating room. General anesthesia was easily obtained by the anesthesia staff. Following this, well- padded tourniquet was placed on superior right thigh. Right lower extremity was then prepped and ricki ped in usual sterile fashion for procedure. The leg was then elevated, exsanguinated, knee was bent, and tourniquet was raised. After this, a standard anterior incision was taken down carefully throug h skin and soft tissues, meticulous hemostasis being maintained using Bovie electrocautery. The appr opriate level was seen and the extensor mechanism was easily exposed. A gabby was made in the superom edial aspect of the patella and a standard medial parapatellar arthrotomy was performed. After this, the medial and lateral menisci as well as the anterior and posterior cruciate ligaments were removed and intramedullary guide was then placed without difficulty. Following this, a distal cut was made and the sizers placed, appeared to be a size 70. After this, the remainder of the femoral cuts were performed and attention was then turned to the tibia. Tibia did have dished out area medially, which corresponded to significant medial arthritic change and a standard tibial cut was then performed. I t sized to a 79. The knee was then trialed and it does come to full extension, appeared to be balanc ed in both flexion and extension. The patella appeared to glide normally. After this, attention was turned to the patella, which was calipered and cut. The trial patella was then placed and it was th en brought through range of motion and the patella was held with simple finger pressure with no signs of subluxation or other mechanical issue. After this, the trial components were removed. The box c ut and the tibia was punched. The bones were then prepped for cementation and the final implants wit h the exception of the tibial poly were then placed with removal of any aberrant cement. There was s ome cement placed in the femoral canal as well as a bone plug behind it. After the cement hardened, this was brought through a full range of motion and was found to have full flexion and extension, sta ble and balanced. The patella appeared to glide well. The final poly was then placed and locked in place using locking pin. The wound was copiously irrigated and the extensor mechanism was repaired i n a watertight fashion using Ethibond sutures followed by irrigation and closure of skin with Vicryl followed by katharine. The patient was then placed in a well-padded sterile dressing, awakened, and ta tram to recovery room in good condition. There were no complications. /MODL Voice ID: [id number] Report ID: [id number]
[2023-06-06 21:51] VITALS: O2SAT 94
[2023-06-07] MEDS: ENOXAPARIN 30 MG/0.3 ML SQ SCH (05:56)
[2023-06-07 06:11] LABS: Hematocrit 38.2 % (39.6-49.0)
[2023-06-07 17:43] VITALS: BP 145/90; TEMP 98.2
== END 2023-06-07 18:30 | disposition home health service (06) ==
LOC: OR 05:30 → 4TH 09:38
PROVIDERS: ADMIT Orthopaedic Surgery; ATTEND Orthopaedic Surgery
PROC: 0SRC069 Replacement of Right Knee Joint with Oxidized Zirconium on Polyethylene Synthetic Substitute, Cemented, Open Approach (ICD-10-PCS; principal; 2023-06-06 07:00)
DX: M17.11 Unilateral primary osteoarthritis, right knee (principal)
CPT/HCPCS: 93005; 85025; 81001; 36415 ×2; 85610; 82947 ×2; 88305; 88311; 85730; 85018; 85014; 80053; 71046; 97110 ×2; 97116 ×2; 97139; 97161; 97530; 94010; 27447; J3475; J2704; J1100; J2001 ×3; J1650; J2250; J3010; J0171; J2405; J7120 ×2; J0690 ×3; C1776; 88304; G0378; G0379